=== PATIENT | female | born 1935 | race Caucasian/White ===

== ENCOUNTER 2019-03-22 03:37 | Inpatient (IN) ==
[2019-03-22 04:16] LABS: Appearance Urine Cloudy (Clear); Bacteria Urine Automated Negative (Negative); Bilirubin Urine Negative (Negative); Blood Urine Negative (Negative); Color Urine Yellow; Glucose Urine UA Negative (Negative); Ketones Urine Trace (Negative); Leukocyte Esterase Urine 3+ (Negative); Nitrite Urine Negative (Negative); Protein Urine Negative (Negative); RBC Urine Automated 0-4 /hpf (0-4); Specific Gravity Urine 1.023 (1.000-1.030); Urobilinogen Urine Negative (Negative); WBC Urine Automated >30 /hpf (0-5)
[2019-03-22 04:35] LABS: Basophils # (auto) 0.01 K/uL (0-0.2); Basophils % (auto) 0.2 %; Eosinophils # (auto) 0.14 K/uL (0-0.5); Eosinophils % (auto) 2.2 %; Hematocrit (blood only) 35.5 % (37-47); Hemoglobin 11.8 g/dL (12.0-16.0); Immature Granulocytes # (auto) 0.01 K/uL (0.00-0.02); Immature Granulocytes % (auto) 0.2 %; Mean Corpuscular Hemoglobin 30.3 pg (25-34); Mean Corpuscular Hgb Conc 33.2 g/dL (32-36); Monocytes # (auto) 0.56 K/uL (0.11-0.59); Neutrophils # (auto) 4.03 K/uL (1.4-6.5); Neutrophils % (auto) 64.4 %; Platelet Count 172 K/uL (130-400); RDW Coefficient of Variation 12.9 % (11.5-14.5); RDW Standard Deviation 42.8 fL (36.4-46.3); White Blood Count 6.25 K/uL (4.8-10.8)
[2019-03-22 04:53] LABS: Albumin Level 3.2 gm/dl (3.4-5.0); BUN Creatinine Ratio 28.5 (10-20); Calcium 9.3 mg/dl (8.5-10.1); Creatinine Clr Calc Pharmacy 33.1 ml/min; Est GFR (African American) 55.8; Est GFR (Non-African American) 48.2; Potassium 4.1 mmol/L (3.5-5.1)
[2019-03-22 04:59] LABS: Albumin Globulin Ratio 0.8 (0.9-2); Bilirubin,Total 0.5 mg/dl (0.2-1); Globulin 3.9 gm/dl (2.5-4.0); Total Protein 7.1 gm/dl (6.4-8.2)
[2019-03-22] MEDS ORDERED: SODIUM CHLORIDE 0.9% 500 ML IV ONE (05:09)
[2019-03-22] MEDS ORDERED: IOVERSOL 100ml IV PRN (05:12)
[2019-03-22] MEDS ORDERED: SODIUM CHLORIDE 0.9% 500 ML IV SCH (06:30)
--- NOTE | 2019-03-22 06:36 | XRay Report ---
XR abdomen 2V w PA chest HISTORY: 83 years-old Female upper abd. pain acute upper abdominal pain COMPARISON: CT abdomen and pelvis of same day TECHNIQUE: PA view the chest with erect and supine views of the abdomen FINDINGS: Cardiomediastinal and hilar silhouettes are within normal limits. There is no pneumothorax, pleural e ffusion, focal airspace consolidation or overt pulmonary edema. Minimal interstitial coarsening of th e lung bases. Degenerative changes of the shoulders and spine. Right shoulder rotator cuff calcific t endinosis. Convex right curvature of the upper lumbar spine. Degenerative changes of the pelvis and hips. There is no pneumatosis or pneumoperitoneum. There are a few mildly dilated loops of small bowel within the left midabdomen with air-fluid levels. No urolith. Cholecystectomy. Pelvic basin calcifications are suggestive of phleboliths. IMPRESSION: 1. No acute processes of the chest. 2. Mildly dilated loops of small bowel within the left midabdomen with air-fluid levels are suggestiv e of ileus versus enteritis with low-grade small bowel obstruction also within the differential. Foll ow-up recommended. 3. Cholecystectomy. The above report was generated using voice recognition software. It may contain grammatical, syntax o r spelling errors. Electronically signed by: Raoul Suazo M.D. 03/22/2019 6:34 AM
--- NOTE | 2019-03-22 07:32 | CT Scan Report ---
CT OF THE ABDOMEN AND PELVIS WITH CONTRAST CLINICAL HISTORY: Upper abdominal pain. COMPARISON STUDY: Abdominal series March 22, 2019. TECHNIQUE: Following IV administration of 93 mL of Optiray-320, axial images of the abdomen and pelvi s were obtained from the lung bases to the proximal femurs. Images were reviewed in the axial, sagitt al, and coronal planes. IV contrast was administered without complication. Automated exposure contro l was utilized for the study. A dose lowering technique was utilized adhering to the principles of A JOHN. CT DOSE: 290.21 mGy.cm FINDINGS: No pneumatosis, free air or portal venous gas is present. A lateral segment hepatic cyst is noted. Mild biliary ductal dilatation is likely related to previous cholecystectomy. The spleen, adr enal glands and pancreas are unremarkable. A few left renal cysts are noted. There is no hydronephros is. The proximal to mid small bowel is mildly dilated and fluid-filled. There is associated mesenteri c infiltration. Note is made of transition point with kinking of the bowel within the left lower quad rant on image 226 of 391. The distal small bowel is decompressed. Extensive colonic diverticulosis is noted without evidence for acute diverticulitis. A severe L1 compression fracture is noted. Vertebra l body height loss has increased since MRI of November 26, 2017. There is kyphosis at the thoracolumbar j unction. Mild loss of height of the superior plate of L3 is chronic. This is unchanged. IMPRESSION: Mildly dilated fluid-filled proximal to mid small bowel with discrete transition point w ithin the left mid abdomen, statistically on the basis of adhesions. Decompressed distal small bowel. Associated mesenteric infiltration. This represents a moderate grade small bowel obstruction. Discus sed with Dr. Sandra at time of dictation Electronically signed by: Panchito Steward M.D. 03/22/2019 7:30 AM
--- NOTE | 2019-03-22 07:59 | History and Physical Report ---
DATE OF ADMISSION: 03/22/2019 CHIEF COMPLAINT: Abdominal pain. HISTORY OF PRESENT ILLNESS: This 83-year-old female with past medical history significant for diabetes, hyperlipidemia, hypertension, osteoporosis, general osteoarthritis, macular degeneration, hard of hearing, and history of pulmonary embolism, presents with abdominal pain. The patient yesterday evening at 6:00 p.m. started noticing abdominal pain in the epigastric region, 7/10 in severity, not associated with any nausea or vomiting, no diarrhea or constipation. Last bowel movement was about Monday. She is passing only a small amount of flatus, so she came to the ER. Currently resting comfortably and hemodynamically stable. Never had an abdominal obstruction in the past. Denies any chest pain, no shortness of breath, no cough, no fever, no chills, no headache, no blurred vision, no sore throat, no difficulty swallowing. Appetite is okay. She ate her dinner last night. No rash. Has some lower extremity edema. She is on Lasix for the last 1 month for lower extremity edema. ALLERGIES: No known drug allergies. PAST MEDICAL HISTORY: As mentioned above. PAST SURGICAL HISTORY: Right shoulder arthroscopy, right knee arthroplasty, carpal tunnel surgery on the right side, colonoscopy, dilatation and curettage, removal of right ovary, bilateral cataract surgeries, cholecystectomy. MEDICATIONS: The patient is on Coumadin 5-7.5 mg as directed, simvastatin 10 mg p.o. daily, lisinopril 2.5 mg p.o. daily, metformin 500 mg in a.m. and 1000 mg in the evening, Lasix 20 mg p.o. daily, magnesium oxide 200 mg p.o. daily, calcium carbonate plus vitamin D 1 tablet b.i.d., vitamin B12 of 1000 mcg daily, amoxicillin prior to dental cleanings, multivitamins 1 tablet daily. FAMILY HISTORY: Significant for currently aunt has diabetes, sister has pancreatic cancer. Father had prostate cancer. SOCIAL HISTORY: Currently living alone. Son lives close by. No tobacco abuse. No alcohol abuse, no drug use. REVIEW OF SYMPTOMS: As per HPI. Rest of the review of systems is negative. PHYSICAL EXAMINATION: GENERAL: The patient is of moderate built, not in acute distress. VITAL SIGNS: Temperature 36.4, pulse 79, respiratory rate 16, blood pressure 128/77, oxygen 93% on room air. HEENT: No pallor, no icterus. Pupils equal, round, and reactive to light. NECK: No JVD, no neck masses, no carotid bruits. CARDIOVASCULAR: S1, S2 heard, regular rate and rhythm, no murmur, no gallop. RESPIRATORY SYSTEM: Normal AP diameter. No accessory muscle use. No wheezing, no crackles. ABDOMEN: Soft, mild epigastric tenderness, no guarding, no rigidity, no rebound tenderness. CENTRAL NERVOUS SYSTEM: Cranial nerves II-XII grossly intact. Nonfocal. EXTREMITIES: No edema, no erythema. LABORATORY DATA: WBC 6.25, hemoglobin 11.8, hematocrit 35.5, platelets 172. Sodium 139, potassium 4.1, chloride 104, bicarbonate 29, BUN 30, creatinine 1.06, serum glucose 147, calcium 9.3, total bilirubin 0.5, AST 15, ALT 14, alkaline phosphatase 67, lipase 132. Urinalysis positive for leukocyte esterase. Chest and abdominal x-ray: Mildly dilated loops of small bowel in the left-mid abdomen with air-fluid levels suggestive of ileus versus enteritis versus low-grade small-bowel obstruction. CAT scan of the abdomen and pelvis is pending. ASSESSMENT AND PLAN: This is an 83-year-old female who presents with abdominal pain. 1. Abdominal pain: Abdominal x-ray shows possible bowel obstruction. CAT scan unofficial report shows small-bowel obstruction. We will follow the official report. We will keep her n.p.o., IV fluids, IV pain medications p.r.n. iv Pepcid,Consult surgery for further recommendations. 2. History of diabetes: We will hold her home metformin, place her on insulin sliding scale. Follow the HbA1c levels. Follow the blood sugars while in the hospital. 3. History of hypertension: Continue lisinopril and Lasix. 4. History of lower extremity edema: Continue Lasix and follow with primary care physician. 5. History of hyperlipidemia: Continue statin. 6. History of pulmonary embolism: On Coumadin. Follow the INR. Once the INR is available, we will hold Coumadin and place on IV heparin until the bowel obstruction is resolved. 7. UTI? UA positive. Will follow cultures. Empiric iv Rocephin. 8. Deep venous thrombosis prophylaxis: Follow the INR. DISPOSITION: Admit to medical floor. Expect to discharge home and follow with family doctor. Level 1, full code. MTDD
[2019-03-22 08:29] LABS: INR 2.3 (0.9-1.1); Prothrombin Time 21.9 Seconds (9.0-12.0)
[2019-03-22] MEDS: SODIUM CHLORIDE 0.9% 1000ML 1,000 ML IV SCH ×3 (08:57→22:49)
[2019-03-22] MEDS ORDERED: FUROSEMIDE 20 MG TAB PO SCH (09:00)
[2019-03-22] MEDS: ACETAMINOPHEN 325 MG TAB PO PRN (09:03)
[2019-03-22] MEDS: ONDANSETRON INJ 2 MG/ML 2 ML VIAL IV PRN (09:52)
[2019-03-22] MEDS: cefTRIAXone SODIUM 1,000 MG in DEXTROSE 5% 50 ML IV SCH (10:02)
--- NOTE | 2019-03-22 10:05 | Surgery Consultation ---
Date of Consultation March 22, 2019 Assessment & Plan (1) SBO (small bowel obstruction): pt is a 83 year-old female who was admitted to hospital for SBO, IMP: SBO, agree with conservative treatment first, NPO, IV fluid, control pain, hold coumadin now, repeat INR, PT , labs, KUB in morning, no surgical indication now, will F/U , pt agrees with the plan, I answered all questions, possible surgery treatment if pt's symptoms are getting worse, History of Present Illness Attending Physician: Zeny Shaw MD CHIEF COMPLAINT: Abdominal pain. HISTORY OF PRESENT ILLNESS: This 83-year-old female with past medical history significant for diabetes, hyperlipidemia, hypertension, osteoporosis, general osteoarthritis, macular degeneration, hard of hearing, and history of pulmonary embolism, presents with abdominal pain. The patient yesterday evening at 6:00 p.m. started noticing abdominal pain in the epigastric region, 7/10 in severity, not associated with any nausea or vomiting, no diarrhea or constipation. Last bowel movement was about Monday. She is passing only a small amount of flatus, so she came to the ER. Currently resting comfortably and hemodynamically stable. Never had an abdominal obstruction in the past. Denies any chest pain, no shortness of breath, no cough, no fever, no chills, no headache, no blurred vision, no sore throat, no difficulty swallowing. Appetite is okay. She ate her dinner last night. No rash. Has some lower extremity edema. She is on Lasix for the last 1 month for lower extremity edema. I ( Yue Flores MD ) got a call for consult SBO, I reviewed pt's H/P labs, CT scan with pt, pt is still have some lower abdominal pain, with nausea, no vomiting, not pass flatus or BM yet, pt had ovary surgery many years ago, ALLERGIES: No known drug allergies. PAST MEDICAL HISTORY: As mentioned above. PAST SURGICAL HISTORY: Right shoulder arthroscopy, right knee arthroplasty, carpal tunnel surgery on the right side, colonoscopy, dilatation and curettage, removal of right ovary, bilateral cataract surgeries, cholecystectomy. MEDICATIONS: The patient is on Coumadin 5-7.5 mg as directed, simvastatin 10 mg p.o. daily, lisinopril 2.5 mg p.o. daily, metformin 500 mg in a.m. and 1000 mg in the evening, Lasix 20 mg p.o. daily, magnesium oxide 200 mg p.o. daily, calcium carbonate plus vitamin D 1 tablet b.i.d., vitamin B12 of 1000 mcg daily, amoxicillin prior to dental cleanings, multivitamins 1 tablet daily. FAMILY HISTORY: Significant for currently aunt has diabetes, sister has pancreatic cancer. Father had prostate cancer. SOCIAL HISTORY: Currently living alone. Son lives close by. No tobacco abuse. No alcohol abuse, no drug use. REVIEW OF SYMPTOMS: As per HPI. Rest of the review of systems is negative. Allergies Allergy/AdvReac Type Severity Reaction Status Date / Time No Known Allergies Allergy Unknown Verified 03/22/19 04:13 Home Medications Home Medications Medication Instructions Recorded Confirmed Type acetaminophen [Tylenol Arthritis 650 mg PO Q12H PRN 03/22/19 03/22/19 History Pain] bimatoprost [Lumigan] 1 drp OPHTHALMIC (EYE) PM 03/22/19 03/22/19 History calcium carbonate-vitamin D3 1 tab PO BID 03/22/19 03/22/19 History jbxhvucgj-sbcjdlhg-jmu-hyalur 1 tab PO DAILY 03/22/19 03/22/19 History [Joint Health] cyanocobalamin (vitamin B-12) 0 mcg PO DAILY 03/22/19 03/22/19 History [Vitamin B-12] furosemide [Lasix] 20 mg PO DAILY 03/22/19 03/22/19 History lisinopril 2.5 mg PO DAILY 03/22/19 03/22/19 History metformin 1,000 mg PO PM 03/22/19 03/22/19 History metformin 500 mg PO QAM 03/22/19 03/22/19 History simvastatin 10 mg PO PM 03/22/19 03/22/19 History timolol 1 drp OPHTHALMIC (EYE) QAM 03/22/19 03/22/19 History vit C,B-Ko-dtupq-lutein-zeaxan 1 tab PO BID 03/22/19 03/22/19 History [PreserVision AREDS-2] warfarin 5 mg PO DAILY 03/22/19 03/22/19 History Patient History Medical History HTN (hypertension) Diabetes High cholesterol Surgical History History of cholecystectomy Hx of appendectomy Hx of removal of ovary Social History Preferred Language: Indonesian Communication Ability: Effective 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: No Beliefs That Will Affect Care: None Current Living Situation: Alone Other Information That Helps Us Care for You: No Feels Safe at Home: Yes Smoking Status: Never smoker Do You Dip or Chew Tobacco: No ; Hx Alcohol Use: No Hx Substance Use: No Physical Exam Constitutional: WD/WN, vitals as above well developed and well nourished ENMT: external ear and nose normal, oropharynx normal Ears: + hearing impairment Neck: trachea midline, no thyromegaly Respiratory: normal respiratory effort, lungs clear to auscultation normal respiratory effort Cardiovascular: RRR, no murmur, no edema Rate/Rhythm: regular rate and regular rhythm Heart Sounds: normal S1 and normal S2 Gastrointestinal (Abdomen): Percussion/Palpation: abdomen soft mild tenderness at lower abdomen, no rebound pain, no distend, BS + Musculoskeletal: no cyanosis or clubbing, extremities motor strength 5/5 Skin: no rashes, warm and dry Neurologic: patellar DTR's 2+ bilat, sensation intact Psychiatric: Orientation: alert and oriented x 3 Lymphatic: no cervical or axillary lymphadenopathy Results & Data Vital Signs (Past 12 Hours) Vital Signs Temp Pulse Pulse Resp BP BP Pulse Ox 03/22/19 09:02 110/65 03/22/19 07:40 36.7 C 88 18 119/63 97 03/22/19 07:22 82 17 132/71 97 03/22/19 06:14 79 16 128/77 93 03/22/19 05:20 85 98 03/22/19 05:12 78 18 141/64 H 99 03/22/19 03:43 36.4 C L 148 H 22 148/84 H 97 Laboratory Results Abnormal lab results 03/22/19 03/22/19 03/22/19 Range/Units 03:59 04:08 04:08 RBC 3.90 L (4.2-5.4) M/uL Hgb 11.8 L (12.0-16.0) g/dL Hct 35.5 L (37-47) % PT (9.0-12.0) Seconds INR (0.9-1.1) BUN 30 H (7-18) mg/dl BUN/Creatinine Ratio 28.5 H (10-20) Glucose 147 H (70-99) mg/dl POC Glucose (70-99) Albumin 3.2 L (3.4-5.0) gm/dl Albumin/Globulin Ratio 0.8 L (0.9-2) Urine Appearance Cloudy A (Clear) Urine Ketones Trace H (Negative) Ur Leukocyte Esterase 3+ H (Negative) Urine WBC (Auto) >30 H (0-5) /hpf U Hyaline Cast (Auto) 5-10 H (0-5) /lpf U Epithel Cells (Auto) 10-20 H (0-5) /lpf 03/22/19 03/22/19 Range/Units 08:11 08:27 RBC (4.2-5.4) M/uL Hgb (12.0-16.0) g/dL Hct (37-47) % PT 21.9 H (9.0-12.0) Seconds INR 2.3 H (0.9-1.1) BUN (7-18) mg/dl BUN/Creatinine Ratio (10-20) Glucose (70-99) mg/dl POC Glucose 122 H (70-99) Albumin (3.4-5.0) gm/dl Albumin/Globulin Ratio (0.9-2) Urine Appearance (Clear) Urine Ketones (Negative) Ur Leukocyte Esterase (Negative) Urine WBC (Auto) (0-5) /hpf U Hyaline Cast (Auto) (0-5) /lpf U Epithel Cells (Auto) (0-5) /lpf Diagnostic Findings CT OF THE ABDOMEN AND PELVIS WITH CONTRAST CLINICAL HISTORY: Upper abdominal pain. COMPARISON STUDY: Abdominal series March 22, 2019. TECHNIQUE: Following IV administration of 93 mL of Optiray-320, axial images of the abdomen and pelvis were obtained from the lung bases to the proximal femurs. Images were reviewed in the axial, sagittal, and coronal planes. IV contrast was administered without complication. Automated exposure control was utilized for the study. A dose lowering technique was utilized adhering to the principles of ALARA. CT DOSE: 290.21 mGy.cm FINDINGS: No pneumatosis, free air or portal venous gas is present. A lateral segment hepatic cyst is noted. Mild biliary ductal dilatation is likely related to previous cholecystectomy. The spleen, adrenal glands and pancreas are unremarkable. A few left renal cysts are noted. There is no hydronephrosis. The proximal to mid small bowel is mildly dilated and fluid-filled. There is associated mesenteric infiltration. Note is made of transition point with kinking of the bowel within the left lower quadrant on image 226 of 391. The distal small bowel is decompressed. Extensive colonic diverticulosis is noted without evidence for acute diverticulitis. A severe L1 compression fracture is noted. Vertebral body height loss has increased since MRI of November 26, 2017. There is kyphosis at the thoracolumbar junction. Mild loss of height of the superior plate of L3 is chronic. This is unchanged. IMPRESSION: Mildly dilated fluid-filled proximal to mid small bowel with discrete transition point within the left mid abdomen, statistically on the basis of adhesions. Decompressed distal small bowel. Associated mesenteric infiltration. This represents a moderate grade small bowel obstruction. Discussed with Dr. Sandra at time of dictation
[2019-03-22] MEDS: KETOROLAC TROMETHAMINE 15 MG/ML VIAL IV PRN ×2 (10:32→20:16)
--- NOTE | 2019-03-22 13:04 | Hospitalist Progress Note ---
Date of Service March 22, 2019 Assessment & Plan (1) SBO (small bowel obstruction): Admitted with abdominal pain, distention and nausea CT of the abdomen and pelvis did show small bowel obstruction likely secondary to adhesions from past cholecystectomy We will keep her n.p.o., IV fluid and IV pain medications will avoid any narcotics, Appreciate surgery input and recommendation Clinically little better today Present on Admission?: Yes (2) HTN (hypertension): Blood pressure seems to be under control (3) Diabetes: We will hold any oral diabetic medications put her on sliding scale insulin coverage while in the hospital We will recheck hemoglobin A1c (4) High cholesterol: Continue statin (5) Lumbar compression fracture: No acute symptoms History of pulmonary embolism on Coumadin INR is therapeutic UA suggestive of infection Will await culture and sensitivity Subjective 03/22 The patient was seen and examined in the medical floor She complains to have some abdominal pain without any distention Complains of nausea but no vomiting Bowel has not moved Review of Systems Review of Systems: All systems reviewed and are unremarkable except as noted below Gastrointestinal: + abdominal pain, + bloating and + nausea; no vomiting Physical Exam Physical Exam: Lying in bed comfortably Constitutional: + ill appearing; no acute distress Eyes: PERRL, conjunctivae normal, anicteric sclerae ENMT: external ear and nose normal, oropharynx normal Neck: trachea midline, no thyromegaly Respiratory: normal respiratory effort; no respiratory distress Auscultation: lungs clear to auscultation bilaterally Cardiovascular: Rate/Rhythm: regular rate and regular rhythm Heart Sounds: no murmur Gastrointestinal (Abdomen): Inspection/Auscultation: + abdomen distended (Minimally distended) and normal bowel sounds Percussion/Palpation: + abdomen tender (Minimal generalized tenderness) and abdomen soft; no guarding Musculoskeletal: No acute arthritis in any joints Neurologic: moves all extremities; no focal motor deficits Lymphatic: no cervical or axillary lymphadenopathy Results & Data Vital Signs (Past 12 Hours) Vital Signs Temp Pulse Pulse Resp BP BP Pulse Ox 03/22/19 09:02 110/65 03/22/19 07:40 36.7 C 88 18 119/63 97 03/22/19 07:22 82 17 132/71 97 03/22/19 06:14 79 16 128/77 93 03/22/19 05:20 85 98 03/22/19 05:12 78 18 141/64 H 99 03/22/19 03:43 36.4 C L 148 H 22 148/84 H 97 Laboratory Results Short CBC 03/22/19 Range/Units 04:08 WBC 6.25 (4.8-10.8) K/uL Hgb 11.8 L (12.0-16.0) g/dL Hct 35.5 L (37-47) % Plt Count 172 (130-400) K/uL BMP 03/22/19 04:08 Sodium 139 Potassium 4.1 Chloride 104 Carbon Dioxide 29 BUN 30 H Creatinine 1.06 Glucose 147 H Calcium 9.3 Liver Function 03/22/19 Range/Units 04:08 Total Bilirubin 0.5 (0.2-1) mg/dl AST 15 (15-37) U/L ALT 14 (12-78) U/L Alkaline Phosphatase 67 (45-117) U/L Albumin 3.2 L (3.4-5.0) gm/dl Urine 03/22/19 Range/Units 03:59 Urine Color Yellow Urine Appearance Cloudy A (Clear) Urine pH 7.0 (4.5-7.5) Ur Specific [place] 1.023 (1.000-1.030) Urine Protein Negative (Negative) Urine Glucose (UA) Negative (Negative) Medications Administered Current Inpatient Medications Acetaminophen (Tylenol) 650 mg PO Q4H PRN PRN Reason: pain/fever Stop: 04/21/19 07:47 Last Admin: 03/22/19 09:03 Dose: 650 mg Documented by: Furosemide (Lasix) 20 mg PO DAILY MATTHEW Stop: 04/21/19 08:59 Last Admin: 03/22/19 08:58 Dose: Not Given Documented by: Sodium Chloride (Nss 1000ml) 1,000 mls @ 125 mls/hr IV .Q8H MATTHEW Stop: 04/21/19 07:47 Last Admin: 03/22/19 08:57 Dose: 125 mls/hr Documented by: Ceftriaxone Sodium 1,000 mg/ (Dextrose) 60 mls @ 100 mls/hr IV DAILY MATTHEW; Protocol Stop: 04/01/19 08:59 Last Infusion: 03/22/19 10:51 Dose: Infused Documented by: Ketorolac Tromethamine (Toradol) 15 mg IV Q6H PRN PRN Reason: Pain Stop: 03/27/19 10:11 Last Admin: 03/22/19 10:32 Dose: 15 mg Documented by: Lisinopril (Zestril) 2.5 mg PO DAILY [facility] Stop: 04/21/19 08:59 Last Admin: 03/22/19 09:02 Dose: 2.5 mg Documented by: Ondansetron HCl (Zofran) 4 mg IV Q6H PRN PRN Reason: Nausea Stop: 04/21/19 07:47 Last Admin: 03/22/19 09:52 Dose: 4 mg Documented by: Simvastatin (Zocor) 10 mg PO PM MATTHEW Stop: 04/21/19 20:59
[2019-03-22] MEDS ORDERED: Nursing to Pharmacy Communication ONE (13:26)
[2019-03-22] MEDS ORDERED: GLUCAGON FOR INJ 1 MG VIAL IM PRN (13:30)
[2019-03-22] MEDS ORDERED: DEXTROSE 50% 50 ML SYRINGE IV PRN (13:30)
[2019-03-22] MEDS ORDERED: CARBOHYDRATES FOR HYPOGLYCEMIA PO PRN (13:30)
[2019-03-22] MEDS ORDERED: GLUCOSE 40% GEL 15 GM TUBE PO PRN (13:30)
[2019-03-22] MEDS ORDERED: GLUCOSE 10 TABS/TUBE PO PRN (13:30)
--- NOTE | 2019-03-22 14:44 | Emergency Department Note ---
Entered by Nicolasa Montes De Oca acting as a scribe for History of Present Illness General Chief complaint: Abdominal Pain Stated complaint: SEVERE ABDOMINAL PAIN INTO BACK Time Seen by Provider: 03/22/19 03:51 Source: patient History of Present Illness Onset (ago): hour(s) Location: abdomen Radiation: back Pain Consistency: + colicky Exacerbated By: + eating Associated symptoms: + denies other symptoms (denies bowel and urinary problems) and + other (bloating); no fever/chills and no nausea/vomiting Treatments prior to arrival: none The patient is a 83 year old female who presents to the Emergency Room with complaints of abdominal pain that started this evening after dinner. She describes her pain to be located in her epigastric region, and that the consi stency is colicky. She complains of abdominal bloating as well. Her symptoms began after dinner tonight, and she states that the pain radiates to back. The patient denies nausea, vomiting, fever, and bowel or urinary problems. She denied having a bowel movement today. The patient noted she has had her gallbladder, appendix, and one ovary removed. She has a history of diabetes, and takes blood pressure medicine. She reports that she usually has loose stool. She denies any recent weight changes. Home Medications Home Medications Medication Instructions Recorded Confirmed Type acetaminophen [Tylenol Arthritis 650 mg PO Q12H PRN 03/22/19 03/22/19 History Pain] bimatoprost [Lumigan] 1 drp OPHTHALMIC (EYE) PM 03/22/19 03/22/19 History calcium carbonate-vitamin D3 1 tab PO BID 03/22/19 03/22/19 History hxzmprjqg-lkjbljda-oci-hyalur 1 tab PO DAILY 03/22/19 03/22/19 History [Joint Health] cyanocobalamin (vitamin B-12) 0 mcg PO DAILY 03/22/19 03/22/19 History [Vitamin B-12] furosemide [Lasix] 20 mg PO DAILY 03/22/19 03/22/19 History lisinopril 2.5 mg PO DAILY 03/22/19 03/22/19 History metformin 1,000 mg PO PM 03/22/19 03/22/19 History metformin 500 mg PO QAM 03/22/19 03/22/19 History simvastatin 10 mg PO PM 03/22/19 03/22/19 History timolol 1 drp OPHTHALMIC (EYE) QAM 03/22/19 03/22/19 History vit C,A-Wy-lokcy-lutein-zeaxan 1 tab PO BID 03/22/19 03/22/19 History [PreserVision AREDS-2] warfarin 5 mg PO DAILY 03/22/19 03/22/19 History Allergies Allergy/AdvReac Type Severity Reaction Status Date / Time No Known Allergies Allergy Unknown Verified 03/22/19 04:13 Past Med/Surg History Medical History HTN (hypertension) Diabetes High cholesterol Surgical History History of cholecystectomy Hx of appendectomy Hx of removal of ovary Social History Preferred Language: Syriac Communication Ability: Effective Model Maker Scale Required: No Beliefs That Will Affect Care: None marital status: / Current Living Situation: Alone Other Information That Helps Us Care for You: No Feels Safe at Home: Yes Smoking Status: Never smoker Do You Dip or Chew Tobacco: No ; Hx Alcohol Use: No Hx Substance Use: No Review of Systems See HPI for pertinent positives & negatives. and A total of 10 systems reviewed and were otherwise negative Physical Exam Vital Signs Vital Signs - 24 hr 03/22/19 03:43 03/22/19 05:12 03/22/19 05:20 Temperature 36.4 C L Temperature Source Oral Sepsis Recent Fever Within 48 Hours No Sepsis New/Unexplained Change in Mental Status No Sepsis Action Taken by Nursing No Action Required Pulse Rate 148 H 85 Pulse Rate [Right Finger] 78 Pulse Rhythm Regular Pulse Rhythm [Right Finger] Regular Respiratory Rate 22 18 Respiratory Effort / Characteristics Non-Labored Non-Labored Respiratory Depth Normal Normal Respiratory Pattern Blood Pressure 148/84 H Blood Pressure [Right Arm] 141/64 H Blood Pressure Mean 105 Blood Pressure Mean [Right Arm] 89 Pulse Oximetry 97 99 98 Oxygen Delivery Method Room Air Room Air Room Air 03/22/19 06:14 Temperature Temperature Source Sepsis Recent Fever Within 48 Hours Sepsis New/Unexplained Change in Mental Status Sepsis Action Taken by Nursing Pulse Rate Pulse Rate [Right Finger] 79 Pulse Rhythm Pulse Rhythm [Right Finger] Respiratory Rate 16 Respiratory Effort / Characteristics Non-Labored Spontaneous Respiratory Depth Normal Respiratory Pattern Regular Blood Pressure Blood Pressure [Right Arm] 128/77 Blood Pressure Mean Blood Pressure Mean [Right Arm] 94 Pulse Oximetry 93 Oxygen Delivery Method Room Air HEENT: Head - normocephalic and atraumatic Pupils are equal, round, and reactive to light. Extraocular eye muscles are intact, and sclera are anicteric. Nose - moist nasal mucosa without discharge. Mouth - moist buccal mucosa. Oropharynx is nonerythematous and there is no tonsillar exudate or edema noted. Neck: Supple; no JVD, nuchal rigidity, cervical lymphadenopathy, or auscultated bruits. Heart: Regular rate and rhythm. There is a normal S1 and S2 with no murmurs, clicks, or gallops appreciated. Lungs: Clear to auscultation bilaterally with no wheezes, rales, or rhonchi. Abdomen: Soft, mildly tender to palpation in the left and right upper quadrants. The abdomen is slightly distended, with good bowel sounds. There are no palpable pulsatile masses or hepatosplenomegaly. There is no guarding, rigidity, or rebound noted. Extremities: No evidence of cyanosis, clubbing, or edema. There are easily palpable peripheral pulses. Skin: warm and dry with good turgor and no rashes. Course 0357: Past medical records reviewed. The patient was evaluated in room A02. A complete history and physical exam was performed. An IV lock was initiated and labs were drawn as above. She went for an obstruction series which did have some dilated loops of bowel with tiny air-fluid levels. 0451: I checked on the patient to inform her on x-ray results. She rates her pain as an 8, but does not want anything for pain. She believes the pain in her back is from her compression fractures, which she knows about. The patient will go for CT. 0509: The patient will be administered IV fluids for her dehydration. 0625: I updated the patient on her CT results. I spoke to Dr. Sandra, [facility] hospitalist, regarding the patient. He agreed to take over care of the patient. Administered Medications Acetaminophen (Tylenol) 650 mg PO Q4H PRN PRN Reason: pain/fever Stop: 04/21/19 07:47 Last Admin: 03/22/19 09:03 Dose: 650 mg Documented by: [id number] Furosemide (Lasix) 20 mg PO DAILY [facility] Stop: 04/21/19 08:59 Last Admin: 03/22/19 08:58 Dose: Not Given Documented by: [id number] Sodium Chloride (Nss 1000ml) 1,000 mls @ 125 mls/hr IV .Q8H MATTHEW Stop: 03/23/19 07:47 Last Admin: 03/22/19 14:29 Dose: 125 mls/hr Documented by: [id number] Infusion: 03/22/19 14:29 Dose: 125 mls/hr Documented by: [id number] Admin: 03/22/19 08:57 Dose: 125 mls/hr Documented by: [id number] Ceftriaxone Sodium 1,000 mg/ (Dextrose) 60 mls @ 100 mls/hr IV DAILY MATTHEW; Protocol Stop: 04/01/19 08:59 Last Infusion: 03/22/19 10:51 Dose: 0 mls/hr Documented by: [id number] Admin: 03/22/19 10:02 Dose: 100 mls/hr Documented by: [id number] Ketorolac Tromethamine (Toradol) 15 mg IV Q6H PRN PRN Reason: Pain Stop: 03/27/19 10:11 Last Admin: 03/22/19 10:32 Dose: 15 mg Documented by: [id number] Lisinopril (Zestril) 2.5 mg PO DAILY MATTHEW Stop: 04/21/19 08:59 Last Admin: 03/22/19 09:02 Dose: 2.5 mg Documented by: [id number] Ondansetron HCl (Zofran) 4 mg IV Q6H PRN PRN Reason: Nausea Stop: 04/21/19 07:47 Last Admin: 03/22/19 09:52 Dose: 4 mg Documented by: [id number] Discontinued Medications Sodium Chloride (Nss) 500 mls @ 999 mls/hr IV .Q31M ONE Stop: 03/22/19 05:39 Last Infusion: 03/22/19 06:16 Dose: 0 mls/hr Documented by: [id number] Admin: 03/22/19 05:21 Dose: 999 mls/hr Documented by: [id number] Sodium Chloride (Nss) 500 mls @ 125 mls/hr IV .Q4H MATTHEW Stop: 04/21/19 06:29 Last Infusion: 03/22/19 09:14 Dose: 0 mls/hr Documented by: [id number] Admin: 03/22/19 06:34 Dose: 125 mls/hr Documented by: [id number] Ioversol (Optiray 320 100ml) 100 ml IV ONCE PRN PRN Reason: Interaction Checking Stop: 03/26/19 05:11 Last Admin: 03/22/19 05:12 Dose: 93 ml Documented by: [id number] Medical Decision Making Differential Diagnosis Differential diagnosis includes, but is not limited to: constipation, small bowel obstruction, pancreatitis, pneumonia, and cystitis. Medical Records Attestation: I reviewed the patient's medical records. Home Medications Current Medication List: was personally reviewed by me Laboratory Data Attestation: I reviewed the patient's lab results. Result diagrams: 03/22/19 04:08 03/22/19 04:08 Lab Results 03/22/19 03/22/19 03/22/19 Range/Units 03:59 04:08 04:08 WBC 6.25 (4.8-10.8) K/uL RBC 3.90 L (4.2-5.4) M/uL Hgb 11.8 L (12.0-16.0) g/dL Hct 35.5 L (37-47) % MCV 91.0 (80-100) fL MCH 30.3 (25-34) pg MCHC 33.2 (32-36) g/dL RDW Std Deviation 42.8 (36.4-46.3) fL RDW Coeff of Edmar 12.9 (11.5-14.5) % Plt Count 172 (130-400) K/uL MPV 9.0 (7.4-10.4) fL Immature Gran % (Auto) 0.2 % Neut % (Auto) 64.4 % Lymph % (Auto) 24.0 % [place] % (Auto) 9.0 % Eos % (Auto) 2.2 % Baso % (Auto) 0.2 % Immature Gran # (Auto) 0.01 (0.00-0.02) K/uL Neut # (Auto) 4.03 (1.4-6.5) K/uL Lymph # (Auto) 1.50 (1.2-3.4) K/uL [place] # (Auto) 0.56 (0.11-0.59) K/uL Eos # (Auto) 0.14 (0-0.5) K/uL Baso # (Auto) 0.01 (0-0.2) K/uL Sodium 139 (136-145) mmol/L Potassium 4.1 (3.5-5.1) mmol/L Chloride 104 (98-107) mmol/L Carbon Dioxide 29 (21-32) mmol/L Anion Gap 6.0 (3-11) BUN 30 H (7-18) mg/dl Creatinine 1.06 (0.6-1.2) mg/dl Est Cr Clr Drug Dosing 33.1 ml/min Est GFR ( Amer) 55.8 Est GFR (Non-Af Amer) 48.2 BUN/Creatinine Ratio 28.5 H (10-20) Glucose 147 H (70-99) mg/dl Calcium 9.3 (8.5-10.1) mg/dl Total Bilirubin 0.5 (0.2-1) mg/dl AST 15 (15-37) U/L ALT 14 (12-78) U/L Alkaline Phosphatase 67 (45-117) U/L Total Protein 7.1 (6.4-8.2) gm/dl Albumin 3.2 L (3.4-5.0) gm/dl Globulin 3.9 (2.5-4.0) gm/dl Albumin/Globulin Ratio 0.8 L (0.9-2) Lipase 132 (73-393) U/L Urine Color Yellow Urine Appearance Cloudy A (Clear) Urine pH 7.0 (4.5-7.5) Ur Specific Vincent 1.023 (1.000-1.030) Urine Protein Negative (Negative) Urine Glucose (UA) Negative (Negative) Urine Ketones Trace H (Negative) Urine Blood Negative (Negative) Urine Nitrite Negative (Negative) Urine Bilirubin Negative (Negative) Urine Urobilinogen Negative (Negative) Ur Leukocyte Esterase 3+ H (Negative) Urine WBC (Auto) >30 H (0-5) /hpf Urine RBC (Auto) 0-4 (0-4) /hpf U Hyaline Cast (Auto) 5-10 H (0-5) /lpf U Epithel Cells (Auto) 10-20 H (0-5) /lpf Urine Bacteria (Auto) Negative (Negative) Imaging Data Attestation: I personally reviewed and interpreted this imaging study as follows: My Impression: X-ray abdomen 2V w PA chest: Obstruction series - read by me Severe spinal curvature with arthritic changes. Questionable air fluid levels. Radiologist's Impression: Radiology results as stated below per my review and the radiologist's interpretation: CT ABDOMEN & PELVIS With Contrast: COMPARISON: Radiographs performed earlier. Lumbar spine MRI dated 11/26/17 and pelvis MRI dated 11/28/17. Mildly prominent fluid filled small bowel loops seen with a gradual transition point within the left midabdomen. Question mild enteritis with ileus vs low- grade partial small bowel obstruction. Cholecystectomy. Minimal intrahepatic biliary ductal dilatation which may be due to postcholecystectomy. Left hepatic 16 mm cyst. Left renal 13.4 mm cyst Right kidney, pancreas and spleen are unremarkable. Diverticulosis is seen without diverticulitis. No free fluid or free air. Chronic compression deformity of L1 with possible progressive height loss compared to the prior study from 2018. Radiologist: Jose Luis Peña M.D. Study ready at 0518 and initial results transmitted at 06:00 Blood Pressure Blood Pressure Findings: Elevated blood pressure Blood Pressure Disposition: further management by hospitalist MDM Narrative The patient is a 83 year old female who presents to the Emergency Room with complaints of abdominal pain that started this evening after dinner. The patient complains of pain in the upper quadrants of her abdomen. It does seem to come and go. Obstruction series was slightly concerning for small bowel obstruction as there were tiny air-fluid levels. The patient went for CT scan of the abdomen/pelvis which did confirm a possible partial small bowel obstruction. The patient was placed on IV fluids. She denied any nausea and had no episodes of vomiting. She declined wanting anything for pain. I discussed the case with the [facility]ist and they will evaluate for further management. Impression & Plan SBO (small bowel obstruction), Bilateral upper abdominal pain Discharge Plan Visit Data *Final* Discharge Date/Time: 03/22/19 07:22 Chief Complaint: Abdominal Pain Stated Complaint: SEVERE ABDOMINAL PAIN INTO BACK ED Provider: Ariella Alexis Discharge Problem: SBO (small bowel obstruction), Bilateral upper abdominal pain Patient Disposition: Admitted As Inpatient Discharge Instructions Interventions: ED Discharge Assessment Last Done: 03/22/19 07:22 The scribe's documentation has been prepared under my direction and personally reviewed by me in its entirety. I confirm that the note above accurately reflects all work, treatment, procedures, and medical decision making performed by me.
[2019-03-22] MEDS ORDERED: INSULIN ASPART 100 UNITS/ML 3 ML PEN SC SCH (16:30)
[2019-03-22] MEDS: INSULIN ASPART 100 UNITS/ML 3 ML PEN SC SCH (19:44)
[2019-03-22] MEDS: SIMVASTATIN 10 MG TAB PO SCH (20:16)
[2019-03-23] MEDS: INSULIN ASPART 100 UNITS/ML 3 ML PEN SC SCH ×5 (01:14→21:47)
[2019-03-23 05:36] LABS: Basophils # (auto) 0.02 K/uL (0-0.2); Basophils % (auto) 0.3 %; Eosinophils # (auto) 0.17 K/uL (0-0.5); Eosinophils % (auto) 2.4 %; Hematocrit (blood only) 32.7 % (37-47); Hemoglobin 10.4 g/dL (12.0-16.0); Immature Granulocytes # (auto) 0.01 K/uL (0.00-0.02); Immature Granulocytes % (auto) 0.1 %; Lymphocytes # (auto) 1.36 K/uL (1.2-3.4); Lymphocytes % (auto) 19.1 %; Mean Corpuscular Hemoglobin 29.9 pg (25-34); Mean Corpuscular Hgb Conc 31.8 g/dL (32-36); Mean Platelet Volume 9.1 fL (7.4-10.4); Monocytes # (auto) 0.47 K/uL (0.11-0.59); Monocytes % (auto) 6.6 %; Neutrophils # (auto) 5.08 K/uL (1.4-6.5); Neutrophils % (auto) 71.5 %; Platelet Count 157 K/uL (130-400); RDW Coefficient of Variation 13.2 % (11.5-14.5); RDW Standard Deviation 45.3 fL (36.4-46.3); Red Blood Count 3.48 M/uL (4.2-5.4); White Blood Count 7.11 K/uL (4.8-10.8)
[2019-03-23 05:55] LABS: Est GFR (African American) 58.1; Est GFR (Non-African American) 50.1; Potassium 4.3 mmol/L (3.5-5.1)
[2019-03-23 05:56] LABS: BUN Creatinine Ratio 20.6 (10-20); Calcium 8.3 mg/dl (8.5-10.1); Creatinine Clr Calc Pharmacy 31.9 ml/min; Magnesium 1.4 mg/dl (1.8-2.4)
[2019-03-23 05:57] LABS: INR 2.1 (0.9-1.1); Prothrombin Time 20.4 Seconds (9.0-12.0)
[2019-03-23 07:41] LABS: Estimated Average Glucose 146 mg/dl; Hemoglobin A1C 6.7 % (4.5-5.6)
[2019-03-23] MEDS: cefTRIAXone SODIUM 1,000 MG in DEXTROSE 5% 50 ML IV SCH (09:55)
--- NOTE | 2019-03-23 10:02 | Surgery Progress Note ---
Date of Service pt feels better, passed some gas, no BM yet, less abdominal pain, no nausea, no vomiting, March 23, 2019 Assessment & Plan (1) SBO (small bowel obstruction): pt is a 83 year-old female who was admitted to hospital for SBO, IMP: SBO, agree with conservative treatment first, NPO, IV fluid, control pain, hold coumadin now, repeat INR, PT , labs, KUB in morning, no surgical indication now, will F/U , pt agrees with the plan, I answered all questions, possible surgery treatment if pt's symptoms are getting worse, 06/23/2018 10:01am doing better. continue treatment, will F/U Physical Exam Constitutional: WD/WN, vitals as above well developed and well nourished ENMT: external ear and nose normal, oropharynx normal Ears: + hearing impairment Neck: trachea midline, no thyromegaly Respiratory: normal respiratory effort, lungs clear to auscultation normal respiratory effort Cardiovascular: RRR, no murmur, no edema Rate/Rhythm: regular rate and regular rhythm Heart Sounds: normal S1 and normal S2 Gastrointestinal (Abdomen): Percussion/Palpation: abdomen soft Musculoskeletal: no cyanosis or clubbing, extremities motor strength 5/5 Skin: no rashes, warm and dry Neurologic: patellar DTR's 2+ bilat, sensation intact Psychiatric: Orientation: alert and oriented x 3 Lymphatic: no cervical or axillary lymphadenopathy Results & Data Vital Signs (Past 12 Hours) Vital Signs Temp Pulse Pulse Resp BP BP Pulse Ox 03/23/19 09:53 103/68 03/23/19 08:00 36.7 C 79 18 106/68 93 03/22/19 23:44 36.4 C L 77 17 106/64 95
[2019-03-23] MEDS: MAGNESIUM SULFATE / D5W 1 GM/100 ML BAG IV SCH ×2 (10:31→11:58)
--- NOTE | 2019-03-23 14:13 | Hospitalist Progress Note ---
Date of Service March 23, 2019 Assessment & Plan (1) SBO (small bowel obstruction): Admitted with abdominal pain, distention and nausea CT of the abdomen and pelvis did show small bowel obstruction likely secondary to adhesions from past cholecystectomy We will keep her n.p.o., IV fluid and IV pain medications will avoid any narcotics, Appreciate surgery input and recommendation Clinically a lot better today Abdominal pain is gone and distention is improved We will continue n.p.o., IV fluid and supportive care for now (2) HTN (hypertension): Blood pressure seems to be under control (3) Diabetes: We will hold any oral diabetic medications put her on sliding scale insulin coverage while in the hospital We will recheck hemoglobin A1c-6.7 on 03/23 (4) High cholesterol: Continue statin (5) Lumbar compression fracture: No acute symptoms History of pulmonary embolism on Coumadin INR is therapeutic UA suggestive of infection Will await culture and sensitivity Urine cultures grew 3 different organisms likely contaminant Will discontinue antibiotic Subjective 03/22 The patient was seen and examined in the medical floor She complains to have some abdominal pain without any distention Complains of nausea but no vomiting Bowel has not moved 03/23 The patient was seen and examined in medical floor She has been complaining of minimal abdominal symptoms today Minimal distention but no pain, nausea and/or vomiting Bowel has not passed yet Review of Systems Review of Systems: All systems reviewed and are unremarkable except as noted. Gastrointestinal: + bloating; no abdominal pain, no nausea, no vomiting and no cramping Physical Exam Physical Exam: Sitting on a chair without any symptoms Constitutional: no acute distress and not ill appearing Eyes: PERRL, conjunctivae normal, anicteric sclerae ENMT: external ear and nose normal, oropharynx normal Neck: trachea midline, no thyromegaly Respiratory: normal respiratory effort; no respiratory distress Auscultation: lungs clear to auscultation bilaterally Cardiovascular: Rate/Rhythm: regular rate and regular rhythm Heart Sounds: no murmur Gastrointestinal (Abdomen): Inspection/Auscultation: normal bowel sounds; abdomen not distended Percussion/Palpation: + abdomen tender (Minimal generalized tenderness) and abdomen soft; no guarding Neurologic: moves all extremities; no focal motor deficits Lymphatic: no cervical or axillary lymphadenopathy Results & Data Vital Signs (Past 12 Hours) Vital Signs Temp Pulse Resp BP BP Pulse Ox 03/23/19 09:53 103/68 03/23/19 08:00 36.7 C 79 18 106/68 93 Laboratory Results Short CBC 03/23/19 Range/Units 05:20 WBC 7.11 (4.8-10.8) K/uL Hgb 10.4 L (12.0-16.0) g/dL Hct 32.7 L (37-47) % Plt Count 157 (130-400) K/uL BMP 03/23/19 05:20 Sodium 141 Potassium 4.3 Chloride 110 H Carbon Dioxide 28 BUN 21 H Creatinine 1.02 Glucose 91 Calcium 8.3 L Medications Administered Current Inpatient Medications Acetaminophen (Tylenol) 650 mg PO Q4H PRN PRN Reason: pain/fever Stop: 04/21/19 07:47 Last Admin: 03/22/19 09:03 Dose: 650 mg Documented by: Dextrose (Dextrose 50%) 25 - 50 ml IV UD PRN; Protocol PRN Reason: Hypoglycemia Protocol Stop: 04/21/19 13:29 Furosemide (Lasix) 20 mg PO DAILY MATTHEW Stop: 04/21/19 08:59 Last Admin: 03/22/19 08:58 Dose: Not Given Documented by: Glucagon (Glucagen) 1 mg IM UD PRN; Protocol PRN Reason: Hypoglycemia Protocol Stop: 04/21/19 13:29 Glucose (Glucose 40%) 15 - 30 gm PO UD PRN; Protocol PRN Reason: Hypoglycemia Protocol Stop: 04/21/19 13:29 Glucose (Dex4 Glucose) 4 - 8 tabs PO UD PRN; Protocol PRN Reason: Hypoglycemia Protocol Stop: 04/21/19 13:29 Ceftriaxone Sodium 1,000 mg/ (Dextrose) 60 mls @ 100 mls/hr IV DAILY MATTHEW; Protocol Stop: 04/01/19 08:59 Last Infusion: 03/23/19 10:31 Dose: Infused Documented by: Insulin Aspart (Novolog Flexpen) 0 units SC Q6 MATTHEW Stop: 04/21/19 17:59 Last Admin: 03/23/19 13:35 Dose: Not Given Documented by: Ketorolac Tromethamine (Toradol) 15 mg IV Q6H PRN PRN Reason: Pain Stop: 03/27/19 10:11 Last Admin: 03/22/19 20:16 Dose: 15 mg Documented by: Lisinopril (Zestril) 2.5 mg PO DAILY MATTHEW Stop: 04/21/19 08:59 Last Admin: 03/23/19 09:54 Dose: 2.5 mg Documented by: Miscellaneous (Carbohydrates For Hypoglycemia) 15 - 30 gm PO UD PRN PRN Reason: Hypoglycemia Treatment Stop: 04/21/19 13:29 Ondansetron HCl (Zofran) 4 mg IV Q6H PRN PRN Reason: Nausea Stop: 04/21/19 07:47 Last Admin: 03/22/19 09:52 Dose: 4 mg Documented by: Simvastatin (Zocor) 10 mg PO PM MATTHEW Stop: 04/21/19 20:59 Last Admin: 03/22/19 20:16 Dose: 10 mg Documented by:
[2019-03-23] MEDS ORDERED: Nursing to Pharmacy Communication ONE (20:08)
[2019-03-23] MEDS: SIMVASTATIN 10 MG TAB PO SCH (20:33)
[2019-03-23] MEDS: ONDANSETRON INJ 2 MG/ML 2 ML VIAL IV PRN (23:43)
--- NOTE | 2019-03-24 09:29 | Surgery Progress Note ---
Date of Service still passed some gas, no nausea, no vomiting, no abdominal pain, March 24, 2019 Assessment & Plan (1) SBO (small bowel obstruction): pt is a 83 year-old female who was admitted to hospital for SBO, IMP: SBO, agree with conservative treatment first, NPO, IV fluid, control pain, hold coumadin now, repeat INR, PT , labs, KUB in morning, no surgical indication now, will F/U , pt agrees with the plan, I answered all questions, possible surgery treatment if pt's symptoms are getting worse, 03/23/2019 10:01am doing better. continue treatment, will F/U 03/24/2019 9:29am stable, KUB today, miralax will F/U Physical Exam Constitutional: WD/WN, vitals as above well developed and well nourished ENMT: external ear and nose normal, oropharynx normal Ears: + hearing impairment Neck: trachea midline, no thyromegaly Respiratory: normal respiratory effort, lungs clear to auscultation normal respiratory effort Cardiovascular: RRR, no murmur, no edema Rate/Rhythm: regular rate and regular rhythm Heart Sounds: normal S1 and normal S2 Gastrointestinal (Abdomen): Percussion/Palpation: abdomen soft Musculoskeletal: no cyanosis or clubbing, extremities motor strength 5/5 Skin: no rashes, warm and dry Neurologic: patellar DTR's 2+ bilat, sensation intact Psychiatric: Orientation: alert and oriented x 3 Lymphatic: no cervical or axillary lymphadenopathy Results & Data Vital Signs (Past 12 Hours) Vital Signs Temp Pulse Pulse Resp BP BP Pulse Ox 03/24/19 08:00 36.9 C 88 18 111/65 93 03/23/19 23:14 36.9 C 86 18 108/65 96
[2019-03-24] MEDS: INSULIN ASPART 100 UNITS/ML 3 ML PEN SC SCH ×4 (09:44→21:15)
[2019-03-24] MEDS: POLYETHYLENE (MIRALAX) 17 GM PACK PO SCH (09:48)
--- NOTE | 2019-03-24 10:17 | XRay Report ---
KUB HISTORY: Small bowel obstruction. Follow-up. COMPARISON: Abdomen and pelvis CT and chest and abdominal series 03/22/2019. FINDINGS: No significant change in the mildly dilated gas-filled loops of small bowel within the left and midabdomen. The stomach is gas-filled. Prior cholecystectomy. Dextroscoliosis. Multiple pelvic p hleboliths. No renal calculi. No ureteral calculi. No pneumoperitoneum or pneumatosis. IMPRESSION: No significant change in the small bowel obstruction pattern. Electronically signed by: Tuan Roque M.D. 03/24/2019 10:15 AM
--- NOTE | 2019-03-24 13:21 | Hospitalist Progress Note ---
Date of Service March 24, 2019 Assessment & Plan (1) SBO (small bowel obstruction): Admitted with abdominal pain, distention and nausea CT of the abdomen and pelvis did show small bowel obstruction likely secondary to adhesions from past cholecystectomy We will keep her n.p.o., IV fluid and IV pain medications will avoid any narcotics, Appreciate surgery input and recommendation Clinically a lot better today Abdominal pain is gone and distention is improved We will continue n.p.o., IV fluid and supportive care for now KUB shows persistence of SBO without any worsening findings Will continue clears orally for now Advised to ambulate more (2) HTN (hypertension): Blood pressure seems to be under control (3) Diabetes: We will hold any oral diabetic medications put her on sliding scale insulin coverage while in the hospital We will recheck hemoglobin A1c-6.7 on 03/23 (4) High cholesterol: Continue statin (5) Lumbar compression fracture: No acute symptoms History of pulmonary embolism on Coumadin INR is therapeutic UA suggestive of infection Will await culture and sensitivity Urine cultures grew 3 different organisms likely contaminant Will discontinue antibiotic Subjective 03/22 The patient was seen and examined in the medical floor She complains to have some abdominal pain without any distention Complains of nausea but no vomiting Bowel has not moved 03/23 The patient was seen and examined in medical floor She has been complaining of minimal abdominal symptoms today Minimal distention but no pain, nausea and/or vomiting Bowel has not passed yet 03/24 The patient was seen and examined in medical floor She does not have any significant symptoms except some discomfort in the epigastrium Denies any more nausea and/or vomiting Has been tolerating clears Review of Systems Review of Systems: All systems reviewed and are unremarkable except as noted. Gastrointestinal: + bloating; no abdominal pain, no nausea, no vomiting and no cramping Physical Exam Physical Exam: Sitting on a chair without any acute symptoms Constitutional: no acute distress and not ill appearing Eyes: PERRL, conjunctivae normal, anicteric sclerae ENMT: external ear and nose normal, oropharynx normal Neck: trachea midline, no thyromegaly Respiratory: normal respiratory effort; no respiratory distress Auscultation: lungs clear to auscultation bilaterally Cardiovascular: Rate/Rhythm: regular rate and regular rhythm Heart Sounds: no murmur Gastrointestinal (Abdomen): Inspection/Auscultation: + abdomen distended (Minimally distended in the epigastrium) and normal bowel sounds Percussion/ Palpation: + abdomen tender (Minimal generalized tenderness) and abdomen soft; no guarding Neurologic: moves all extremities; no focal motor deficits Lymphatic: no cervical or axillary lymphadenopathy Results & Data Vital Signs (Past 12 Hours) Vital Signs Temp Pulse Resp BP Pulse Ox 03/24/19 09:41 105/64 03/24/19 08:00 36.9 C 88 18 111/65 93 Medications Administered Current Inpatient Medications Acetaminophen (Tylenol) 650 mg PO Q4H PRN PRN Reason: pain/fever Stop: 04/21/19 07:47 Last Admin: 03/22/19 09:03 Dose: 650 mg Documented by: Bimatoprost (Lumigan 0.01%) 1 drops OP PM MATTHEW Stop: 04/23/19 20:59 Dextrose (Dextrose 50%) 25 - 50 ml IV UD PRN; Protocol PRN Reason: Hypoglycemia Protocol Stop: 04/21/19 13:29 Furosemide (Lasix) 20 mg PO DAILY MATTHEW Stop: 04/21/19 08:59 Last Admin: 03/22/19 08:58 Dose: Not Given Documented by: Glucagon (Glucagen) 1 mg IM UD PRN; Protocol PRN Reason: Hypoglycemia Protocol Stop: 04/21/19 13:29 Glucose (Glucose 40%) 15 - 30 gm PO UD PRN; Protocol PRN Reason: Hypoglycemia Protocol Stop: 04/21/19 13:29 Glucose (Dex4 Glucose) 4 - 8 tabs PO UD PRN; Protocol PRN Reason: Hypoglycemia Protocol Stop: 04/21/19 13:29 Insulin Aspart (Novolog Flexpen) 0 units SC ACHS MATTHEW Stop: 04/22/19 20:59 Last Admin: 03/24/19 12:39 Dose: Not Given Documented by: Ketorolac Tromethamine (Toradol) 15 mg IV Q6H PRN PRN Reason: Pain Stop: 03/27/19 10:11 Last Admin: 03/22/19 20:16 Dose: 15 mg Documented by: Lisinopril (Zestril) 2.5 mg PO DAILY MATTHEW Stop: 04/21/19 08:59 Last Admin: 03/24/19 09:42 Dose: 2.5 mg Documented by: Miscellaneous (Carbohydrates For Hypoglycemia) 15 - 30 gm PO UD PRN PRN Reason: Hypoglycemia Treatment Stop: 04/21/19 13:29 Ondansetron HCl (Zofran) 4 mg IV Q6H PRN PRN Reason: Nausea Stop: 04/21/19 07:47 Last Admin: 03/23/19 23:43 Dose: 4 mg Documented by: Polyethylene Glycol (Miralax Powder Packet) 17 gm PO DAILY MATTHEW Stop: 04/23/19 09:29 Last Admin: 03/24/19 09:48 Dose: 17 gm Documented by: Simvastatin (Zocor) 10 mg PO PM MATTHEW Stop: 04/21/19 20:59 Last Admin: 03/23/19 20:33 Dose: 10 mg Documented by: Timolol Maleate (Timoptic 0.25% Oph) 1 drops OP QAM [facility] Stop: 04/23/19 12:14
[2019-03-24] MEDS: TIMOLOL MALEATE 0.25% OP SOLN 5 ML BTL OP SCH (14:08)
[2019-03-24] MEDS: BIMATOPROST 0.01% OP SOLN 2.5 ML BTL OP SCH (21:08)
[2019-03-24] MEDS: SIMVASTATIN 10 MG TAB PO SCH (21:09)
[2019-03-25 05:45] LABS: BUN Creatinine Ratio 13.2 (10-20); Calcium 8.3 mg/dl (8.5-10.1); Creatinine Clr Calc Pharmacy 45.3 ml/min; Est GFR (African American) 88.5; Est GFR (Non-African American) 76.4; Potassium 3.8 mmol/L (3.5-5.1)
[2019-03-25] MEDS: INSULIN ASPART 100 UNITS/ML 3 ML PEN SC SCH ×3 (08:16→19:29)
[2019-03-25] MEDS: TIMOLOL MALEATE 0.25% OP SOLN 5 ML BTL OP SCH (08:17)
[2019-03-25] MEDS: POLYETHYLENE (MIRALAX) 17 GM PACK PO SCH (08:17)
--- NOTE | 2019-03-25 12:28 | Surgery Progress Note ---
Date of Service pt is still not pass gas or BM yet, some nausea, no vomiting, no fever, no significant abdominal pain, KUB today, no change for SBO, March 25, 2019 Assessment & Plan (1) SBO (small bowel obstruction): pt is a 83 year-old female who was admitted to hospital for SBO, IMP: SBO, agree with conservative treatment first, NPO, IV fluid, control pain, hold coumadin now, repeat INR, PT , labs, KUB in morning, no surgical indication now, will F/U , pt agrees with the plan, I answered all questions, possible surgery treatment if pt's symptoms are getting worse, 03/23/2019 10:01am doing better. continue treatment, will F/U 03/24/2019 9:29am stable, KUB today, miralax will F/U 03/25/2019 12:29PM still SBO, not pass gas or BM, order small bowel study follow through start lovenex 30mg SQ once a day, I recommend to do exploratory laparotomy possible bowel resection tomorrow, D/W benefits, risks and alternatives of the surgery, pt agrees with the plan, I answered all questions, check PT, INR Physical Exam Constitutional: WD/WN, vitals as above well developed and well nourished ENMT: external ear and nose normal, oropharynx normal Ears: + hearing impairment Neck: trachea midline, no thyromegaly Respiratory: normal respiratory effort, lungs clear to auscultation normal respiratory effort Cardiovascular: RRR, no murmur, no edema Rate/Rhythm: regular rate and regular rhythm Heart Sounds: normal S1 and normal S2 Gastrointestinal (Abdomen): some , mild tenderness at caroline-umbilical area, no distend, BS +, no rebound pain, Musculoskeletal: no cyanosis or clubbing, extremities motor strength 5/5 Skin: no rashes, warm and dry Neurologic: patellar DTR's 2+ bilat, sensation intact Psychiatric: Orientation: alert and oriented x 3 Lymphatic: no cervical or axillary lymphadenopathy Results & Data Vital Signs (Past 12 Hours) Vital Signs Temp Pulse Resp BP Pulse Ox 03/25/19 07:37 37.1 C 85 15 118/60 92 Diagnostic Findings KUB HISTORY: Small bowel obstruction. Follow-up. COMPARISON: Abdomen and pelvis CT and chest and abdominal series 03/22/2019. FINDINGS: No significant change in the mildly dilated gas-filled loops of small bowel within the left and midabdomen. The stomach is gas-filled. Prior cholecystectomy. Dextroscoliosis. Multiple pelvic phleboliths. No renal calculi. No ureteral calculi. No pneumoperitoneum or pneumatosis. IMPRESSION: No significant change in the small bowel obstruction pattern.
[2019-03-25] MEDS ORDERED: Nursing to Pharmacy Communication ONE (12:42)
[2019-03-25] MEDS: ONDANSETRON INJ 2 MG/ML 2 ML VIAL IV PRN ×2 (14:42→20:50)
[2019-03-25 14:56] LABS: INR 1.9 (0.9-1.1); Prothrombin Time 18.8 Seconds (9.0-12.0)
--- NOTE | 2019-03-25 15:24 | Hospitalist Progress Note ---
Date of Service March 25, 2019 Assessment & Plan (1) SBO (small bowel obstruction): Admitted with abdominal pain, distention and nausea CT of the abdomen and pelvis did show small bowel obstruction likely secondary to adhesions from past cholecystectomy We will keep her n.p.o., IV fluid and IV pain medications will avoid any narcotics, Appreciate surgery input and recommendation Clinically a lot better today Abdominal pain is gone and distention is improved We will continue n.p.o., IV fluid and supportive care for now KUB shows persistence of SBO without any worsening findings Condition did not improved as of this morning Complaining of more obstructive symptoms Likely to go for laparotomy tomorrow (2) HTN (hypertension): Blood pressure seems to be under control (3) Diabetes: We will hold any oral diabetic medications put her on sliding scale insulin coverage while in the hospital We will recheck hemoglobin A1c-6.7 on 03/23 (4) High cholesterol: Continue statin (5) Lumbar compression fracture: No acute symptoms History of pulmonary embolism on Coumadin INR is therapeutic Coumadin is on hold Has been started 0n Lovenox subcu UA suggestive of infection Will await culture and sensitivity Urine cultures grew 3 different organisms likely contaminant Will discontinue antibiotic Subjective 03/22 The patient was seen and examined in the medical floor She complains to have some abdominal pain without any distention Complains of nausea but no vomiting Bowel has not moved 03/23 The patient was seen and examined in medical floor She has been complaining of minimal abdominal symptoms today Minimal distention but no pain, nausea and/or vomiting Bowel has not passed yet 03/24 The patient was seen and examined in medical floor She does not have any significant symptoms except some discomfort in the epigastrium Denies any more nausea and/or vomiting Has been tolerating clears 03/25 The patient was seen and examined in medical floor She has been complaining of some discomfort today in the abdomen with some distention and nausea Denies any vomiting and she has not had any bowel movement and/or movement of any flatus Review of Systems Review of Systems: All systems reviewed and are unremarkable except as noted. Gastrointestinal: + bloating; no abdominal pain, no nausea, no vomiting and no cramping Physical Exam Physical Exam: Denies any discomfort at rest Constitutional: no acute distress and not ill appearing Eyes: PERRL, conjunctivae normal, anicteric sclerae ENMT: external ear and nose normal, oropharynx normal Neck: trachea midline, no thyromegaly Respiratory: normal respiratory effort; no respiratory distress Auscultation: lungs clear to auscultation bilaterally Cardiovascular: Rate/Rhythm: regular rate and regular rhythm Heart Sounds: no murmur Gastrointestinal (Abdomen): Inspection/Auscultation: + abdomen distended (Minimally distended in the epigastrium) and normal bowel sounds Percussion/Palpation: + abdomen tender (Minimal generalized tenderness) and abdomen soft; no guarding Bowel sounds sluggish Musculoskeletal: No acute arthritis in any joints Neurologic: moves all extremities; no focal motor deficits Alert,awake and oriented x3 Lymphatic: no cervical or axillary lymphadenopathy Results & Data Vital Signs (Past 12 Hours) Vital Signs Temp Pulse Resp BP Pulse Ox 03/25/19 07:37 37.1 C 85 15 118/60 92 Laboratory Results [facility] 03/25/19 04:41 Sodium 138 Potassium 3.8 Chloride 106 Carbon Dioxide 27 BUN 9 D Creatinine 0.72 D Glucose 97 Calcium 8.3 L Medications Administered Current Inpatient Medications Acetaminophen (Tylenol) 650 mg PO Q4H PRN PRN Reason: pain/fever Stop: 04/21/19 07:47 Last Admin: 03/22/19 09:03 Dose: 650 mg Documented by: Bimatoprost (Lumigan 0.01%) 1 drops OP PM [facility] Stop: 04/23/19 20:59 Last Admin: 03/24/19 21:08 Dose: 1 drops Documented by: Dextrose (Dextrose 50%) 25 - 50 ml IV UD PRN; Protocol PRN Reason: Hypoglycemia Protocol Stop: 04/21/19 13:29 Enoxaparin Sodium (Lovenox) 30 mg SQ DAILY@1400 [facility] Stop: 04/24/19 15:29 Furosemide (Lasix) 20 mg PO DAILY MATTHEW Stop: 04/21/19 08:59 Last Admin: 03/22/19 08:58 Dose: Not Given Documented by: Glucagon (Glucagen) 1 mg IM UD PRN; Protocol PRN Reason: Hypoglycemia Protocol Stop: 04/21/19 13:29 Glucose (Glucose 40%) 15 - 30 gm PO UD PRN; Protocol PRN Reason: Hypoglycemia Protocol Stop: 04/21/19 13:29 Glucose (Dex4 Glucose) 4 - 8 tabs PO UD PRN; Protocol PRN Reason: Hypoglycemia Protocol Stop: 04/21/19 13:29 Insulin Aspart (Novolog Flexpen) 0 units SC Q6 MATTHEW Stop: 04/24/19 17:59 Ketorolac Tromethamine (Toradol) 15 mg IV Q6H PRN PRN Reason: Pain Stop: 03/27/19 10:11 Last Admin: 03/22/19 20:16 Dose: 15 mg Documented by: Lisinopril (Zestril) 2.5 mg PO DAILY MATTHEW Stop: 04/21/19 08:59 Last Admin: 03/25/19 08:17 Dose: 2.5 mg Documented by: Miscellaneous (Carbohydrates For Hypoglycemia) 15 - 30 gm PO UD PRN PRN Reason: Hypoglycemia Treatment Stop: 04/21/19 13:29 Ondansetron HCl (Zofran) 4 mg IV Q6H PRN PRN Reason: Nausea Stop: 04/21/19 07:47 Last Admin: 03/25/19 14:42 Dose: 4 mg Documented by: Polyethylene Glycol (Miralax Powder Packet) 17 gm PO DAILY MATTHEW Stop: 04/23/19 09:29 Last Admin: 03/25/19 08:17 Dose: 17 gm Documented by: Simvastatin (Zocor) 10 mg PO PM MATTHEW Stop: 04/21/19 20:59 Last Admin: 03/24/19 21:09 Dose: 10 mg Documented by: Timolol Maleate (Timoptic 0.25% Oph) 1 drops OP QAM MATTHEW Stop: 04/23/19 12:14 Last Admin: 03/25/19 08:17 Dose: 1 drops Documented by:
[2019-03-25] MEDS ORDERED: ENOXAPARIN INJ 30 MG/0.3 ML SYR SQ SCH (15:30)
--- NOTE | 2019-03-25 15:49 | Anesthesiology Consultation ---
Date of Service March 25, 2019 The patient is an 84 y/o female that may undergo an exploratory laparotomy tomorrow by Dr. Flores for possible bowel obstruction. The patient is on warfarin due to a history of pulmonary embolism. Current INR is 1.9. Her warfarin is being withheld and INR will be rechecked tomorrow. Current hgb is 10.4. Assessment & Plan (1) Encounter for pre-operative examination: Chart Review Chart Review: Acceptable Risk for Surgery and Patient NOT seen in Pre Admission Testing Consults Requested none medicine is following the patient History Surgery Operation Date: 03/26/19 11:15 Proposed Procedures p Exploratory Laparotomy - Yue Flores MD Height/Weight Height: 5 ft Weight: 57.2 kg Allergies Allergy/AdvReac Type Severity Reaction Status Date / Time No Known Allergies Allergy Unknown Verified 03/22/19 04:13 Medications Home Medications Medication Instructions Recorded Confirmed Last Taken acetaminophen [Tylenol Arthritis 650 mg PO Q12H PRN 03/22/19 03/22/19 Unknown Pain] bimatoprost [Lumigan] 1 drp OPHTHALMIC (EYE) PM 03/22/19 03/22/19 03/20/19 21:00 calcium carbonate-vitamin D3 1 tab PO BID 03/22/19 03/22/19 Unknown [id number]-bid-hyalur 1 tab PO DAILY 03/22/19 03/22/19 Unknown [Joint Health] cyanocobalamin (vitamin B-12) 0 mcg PO DAILY 03/22/19 03/22/19 Unknown [Vitamin B-12] furosemide [Lasix] 20 mg PO DAILY 03/22/19 03/22/19 Unknown lisinopril 2.5 mg PO DAILY 03/22/19 03/22/19 Unknown metformin 1,000 mg PO PM 03/22/19 03/22/19 Unknown metformin 500 mg PO QAM 03/22/19 03/22/19 Unknown simvastatin 10 mg PO PM 03/22/19 03/22/19 Unknown timolol 1 drp OPHTHALMIC (EYE) QAM 03/22/19 03/22/19 03/21/19 09:00 vit C,J-Aj-boegr-lutein-zeaxan 1 tab PO BID 03/22/19 03/22/19 Unknown [PreserVision AREDS-2] warfarin 5 mg PO DAILY 03/22/19 03/22/19 Unknown Active Medications Generic Name Dose Route Start Last Admin Trade Name Freq PRN Reason Stop Dose Admin Acetaminophen 650 mg 03/22/19 07:48 03/22/19 09:03 Tylenol PO 04/21/19 07:47 650 mg Q4H PRN Administration pain/fever Bimatoprost 1 drops 03/24/19 21:00 03/24/19 21:08 Lumigan 0.01% OP 04/23/19 20:59 1 drops PM MATTHEW Administration Furosemide 20 mg 03/22/19 09:00 03/22/19 08:58 Lasix PO 04/21/19 08:59 Not Given DAILY MATTHEW Ketorolac Tromethamine 15 mg 03/22/19 10:12 03/22/19 20:16 Toradol IV 03/27/19 10:11 15 mg Q6H PRN Administration Pain Lisinopril 2.5 mg 03/22/19 09:00 03/25/19 08:17 Zestril PO 04/21/19 08:59 2.5 mg DAILY MATTHEW Administration Ondansetron HCl 4 mg 03/22/19 07:48 03/25/19 14:42 Zofran IV 04/21/19 07:47 4 mg Q6H PRN Administration Nausea Polyethylene Glycol 17 gm 03/24/19 09:30 03/25/19 08:17 Miralax Powder Packet PO 04/23/19 09:29 17 gm DAILY MATTHEW Administration Simvastatin 10 mg 03/22/19 21:00 03/24/19 21:09 Zocor PO 04/21/19 20:59 10 mg PM MATTHEW Administration Timolol Maleate 1 drops 03/24/19 12:15 03/25/19 08:17 Timoptic 0.25% Oph OP 04/23/19 12:14 1 drops QAM MATTHEW Administration Past Medical History Medical History SBO (small bowel obstruction) (Acute) HTN (hypertension) Diabetes High cholesterol Anemia History of pulmonary embolus (PE) Past Surgical History Surgical History History of cholecystectomy Hx of appendectomy Hx of removal of ovary Social History Smoking Status: Never smoker Do You Dip or Chew Tobacco: No Hx Alcohol Use: No Hx Substance Use: No Physical Exam Vital Signs Last Vital Signs Temp 37.0 C 03/25/19 15:26 Pulse 69 10/21/19 15:26 Resp 18 03/25/19 15:26 BP 125/74 03/25/19 15:26 Pulse Ox 93 03/25/19 15:26 Testing Laboratory Results 03/23/19 05:20 03/25/19 04:41 PT 18.8 Seconds (9.0-12.0) H 03/25/19 14:37 INR 1.9 (0.9-1.1) H 03/25/19 14:37 Hemoglobin A1c 6.7 % (4.5-5.6) H 03/23/19 05:20 Urine Color Yellow 03/22/19 03:59 Urine Appearance Cloudy (Clear) A 03/22/19 03:59 Urine pH 7.0 (4.5-7.5) 03/22/19 03:59 Ur Specific [place] 1.023 (1.000-1.030) 03/22/19 03:59 Urine Protein Negative (Negative) 03/22/19 03:59 Urine Glucose (UA) Negative (Negative) 03/22/19 03:59 Urine Ketones Trace (Negative) H 03/22/19 03:59 Urine Nitrite Negative (Negative) 03/22/19 03:59 Ur Leukocyte Esterase 3+ (Negative) H 03/22/19 03:59 Urine WBC (Auto) >30 /hpf (0-5) H 03/22/19 03:59 Urine RBC (Auto) 0-4 /hpf (0-4) 03/22/19 03:59 U Hyaline Cast (Auto) 5-10 /lpf (0-5) H 03/22/19 03:59 U Epithel Cells (Auto) 10-20 /lpf (0-5) H 03/22/19 03:59 Urine Bacteria (Auto) Negative (Negative) 03/22/19 03:59 03/22/19 03:59 Urine Culture - Final Urine,Clean Catch More than three types of organisms present, all high counts mixed probable skin mike - No further identifications or sensitivities to follow. 03/25/19 03/25/19 12:11 08:02 POC Glucose 141 H 98 Electrocardiogram Date: 03/25/19 SR with PACs rate 72 Chest X-Ray Date: 03/22/19 XR abdomen 2V w PA chest HISTORY: 83 years-old Female upper abd. pain acute upper abdominal pain COMPARISON: CT abdomen and pelvis of same day TECHNIQUE: PA view the chest with erect and supine views of the abdomen FINDINGS: Cardiomediastinal and hilar silhouettes are within normal limits. There is no pneumothorax, pleural effusion, focal airspace consolidation or overt pulmonary edema. Minimal interstitial coarsening of the lung bases. Degenerative changes of the shoulders and spine. Right shoulder rotator cuff calcific tendinosis. Convex right curvature of the upper lumbar spine. Degenerative changes of the pelvis and hips. There is no pneumatosis or pneumoperitoneum. There are a few mildly dilated loops of small bowel within the left midabdomen with air-fluid levels. No urolith. Cholecystectomy. Pelvic basin calcifications are suggestive of phleboliths. IMPRESSION: 1. No acute processes of the chest. 2. Mildly dilated loops of small bowel within the left midabdomen with air-fluid levels are suggestive of ileus versus enteritis with low-grade small bowel obstruction also within the differential. Follow-up recommended. 3. Cholecystectomy. The above report was generated using voice recognition software. It may contain grammatical, syntax or spelling errors. Electronically signed by: Raoul Suazo M.D. 03/22/2019 6:34 AM Dictated: 03/22/1932 Transcribed: 03/22/1932
[2019-03-25] MEDS: PROMETHAZINE HCL 12.5 MG in SODIUM CHLORIDE 0.9% 50 ML IV PRN (17:24)
[2019-03-25] MEDS: LACTATED RINGER'S 1,000 ML IV SCH (19:30)
[2019-03-25] MEDS: SIMVASTATIN 10 MG TAB PO SCH (20:46)
[2019-03-25] MEDS: BIMATOPROST 0.01% OP SOLN 2.5 ML BTL OP SCH (20:47)
[2019-03-26] MEDS: INSULIN ASPART 100 UNITS/ML 3 ML PEN SC SCH ×4 (00:11→18:31)
[2019-03-26] MEDS: PROMETHAZINE HCL 12.5 MG in SODIUM CHLORIDE 0.9% 50 ML IV PRN (00:26)
--- NOTE | 2019-03-26 07:04 | Surgery Progress Note ---
Date of Service pt had vomiting 5 times last night, still not pass flatus or bm, 5 days for SBO, no signs improved March 26, 2019 Assessment & Plan (1) SBO (small bowel obstruction): pt is a 83 year-old female who was admitted to hospital for SBO, IMP: SBO, agree with conservative treatment first, NPO, IV fluid, control pain, hold coumadin now, repeat INR, PT , labs, KUB in morning, no surgical indication now, will F/U , pt agrees with the plan, I answered all questions, possible surgery treatment if pt's symptoms are getting worse, 03/23/2019 10:01am doing better. continue treatment, will F/U 03/24/2019 9:29am stable, KUB today, miralax will F/U 03/25/2019 12:29PM still SBO, not pass gas or BM, order small bowel study follow through start lovenex 30mg SQ once a day, I recommend to do exploratory laparotomy possible bowel resection tomorrow, D/W benefits, risks and alternatives of the surgery, pt agrees with the plan, I answered all questions, check PT, INR 03/26/2019 7:00am pt is still SBO, no improve, vomiting 5 times last night, I recommend to do exploratory laparotomy possible bowel resection or stoma, D/W benefits, risks and alternatives of the surgery, the risks - infection, bleeding, FL, DVT, stroke, organs failure, , pt understood, she agrees with the surgery, I answered all questions, Physical Exam Constitutional: WD/WN, vitals as above well developed and well nourished ENMT: external ear and nose normal, oropharynx normal Ears: + hearing impairment Neck: trachea midline, no thyromegaly Respiratory: normal respiratory effort, lungs clear to auscultation normal respiratory effort Cardiovascular: RRR, no murmur, no edema Rate/Rhythm: regular rate and regular rhythm Heart Sounds: normal S1 and normal S2 Gastrointestinal (Abdomen): Inspection/Auscultation: + abdomen distended Percussion/Palpation: + abdomen tender and abdomen soft tenderness at left side abdomen, no rebound pain, BS +. Musculoskeletal: no cyanosis or clubbing, extremities motor strength 5/5 Skin: no rashes, warm and dry Neurologic: patellar DTR's 2+ bilat, sensation intact Psychiatric: Orientation: alert and oriented x 3 Lymphatic: no cervical or axillary lymphadenopathy Results & Data Vital Signs (Past 12 Hours) Vital Signs Temp Pulse Resp BP Pulse Ox 03/25/19 23:20 37.2 C 83 16 115/69 91
[2019-03-26 07:20] LABS: Basophils # (auto) 0.01 K/uL (0-0.2); Basophils % (auto) 0.1 %; Eosinophils # (auto) 0.01 K/uL (0-0.5); Eosinophils % (auto) 0.1 %; Hematocrit (blood only) 35.4 % (37-47); Hemoglobin 11.5 g/dL (12.0-16.0); Immature Granulocytes # (auto) 0.02 K/uL (0.00-0.02); Immature Granulocytes % (auto) 0.2 %; Lymphocytes # (auto) 0.78 K/uL (1.2-3.4); Lymphocytes % (auto) 7.7 %; Mean Corpuscular Volume 92.4 fL (80-100); Mean Platelet Volume 9.5 fL (7.4-10.4); Monocytes # (auto) 0.53 K/uL (0.11-0.59); Monocytes % (auto) 5.2 %; Neutrophils # (auto) 8.84 K/uL (1.4-6.5); Neutrophils % (auto) 86.7 %; Platelet Count 186 K/uL (130-400); RDW Coefficient of Variation 12.8 % (11.5-14.5); RDW Standard Deviation 43.2 fL (36.4-46.3); Red Blood Count 3.83 M/uL (4.2-5.4); White Blood Count 10.19 K/uL (4.8-10.8)
--- NOTE | 2019-03-26 07:22 | Fluoroscopy Report ---
SMALL BOWEL FOLLOW-THROUGH CLINICAL HISTORY: Small bowel obstruction. COMPARISON STUDY: CT of the abdomen and pelvis March 22, 2019. KUB March 24, 2019. FLUOROSCOPY TIME: 0 minutes. FLUOROSCOPIC IMAGES: None. 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 A small bowel follow-through was then performed as the patient ing ested 2 cups of Optiray. FINDINGS: The scientific database curator KUB demonstrates persistent small bowel dilatation. The proximal to mid small bow el is moderately dilated. The stomach is also is distended. No contrast within the colon was noted at 4 hours and 30 minutes. This suggests a small bowel obstruction. Therefore, a delayed image obtained at 13 hours and 45 minutes. This image demonstrated decompressed distal small bowel loops with contr ast within the colon. A transition point was not well visualized is likely occult by radiography. Thi s suggests a moderate to high-grade small bowel obstruction. IMPRESSION: Moderate dilatation of the proximal to mid small bowel with decompressed distal small bow el. Gastric distention. Contrast eventually reached the colon on the delayed image obtained at 13 jey rs and 45 minutes. These findings suggest a moderate to high-grade small bowel obstruction. Electronically signed by: Panchito Steward M.D. 03/26/2019 7:21 AM
[2019-03-26 07:23] LABS: Mean Corpuscular Hgb Conc 32.5 g/dL (32-36)
[2019-03-26 07:29] LABS: INR 1.9 (0.9-1.1); Prothrombin Time 18.7 Seconds (9.0-12.0)
[2019-03-26 07:37] LABS: Albumin Level 2.9 gm/dl (3.4-5.0); BUN Creatinine Ratio 17.1 (10-20); Calcium 9.2 mg/dl (8.5-10.1); Creatinine Clr Calc Pharmacy 39.3 ml/min; Est GFR (African American) 74.5; Est GFR (Non-African American) 64.3; Potassium 4.1 mmol/L (3.5-5.1)
[2019-03-26 07:40] LABS: Albumin Globulin Ratio 0.8 (0.9-2); Bilirubin,Total 0.9 mg/dl (0.2-1); Globulin 3.6 gm/dl (2.5-4.0); Total Protein 6.5 gm/dl (6.4-8.2)
[2019-03-26] MEDS: LACTATED RINGER'S 1,000 ML IV SCH ×3 (08:03→22:07)
[2019-03-26] MEDS: TIMOLOL MALEATE 0.25% OP SOLN 5 ML BTL OP SCH (08:05)
[2019-03-26] MEDS: POLYETHYLENE (MIRALAX) 17 GM PACK PO SCH (08:06)
[2019-03-26] MEDS ORDERED: SODIUM CHLORIDE 0.9% 250 ML IV PRN ×2 (10:33→10:41)
[2019-03-26 14:06] LABS: INR 1.8 (0.9-1.1); Prothrombin Time 17.6 Seconds (9.0-12.0)
[2019-03-26] MEDS ORDERED: LIDOCAINE HCL 2% 2 ML VIAL/AMP(20MG/ML) INFIL ONE (14:41)
[2019-03-26] MEDS ORDERED: PROPOFOL IV EMULSION 10 MG/ML 20 ML VIAL IV ONE (14:41)
[2019-03-26] MEDS ORDERED: GLYCOPYRROLATE 0.2 MG/ML VIAL ONE (14:41)
[2019-03-26] MEDS ORDERED: ONDANSETRON INJ 2 MG/ML 2 ML VIAL ONE (14:41)
[2019-03-26] MEDS ORDERED: fentaNYL citrate 100 MCG/2 ML VIAL ONE ×2 (14:41)
[2019-03-26] MEDS ORDERED: PHYTONADIONE 2.5 MG in SODIUM CHLORIDE 0.9% 50 ML IV ONE (14:45)
[2019-03-26] MEDS ORDERED: CEFAZOLIN 2000MG 2,000 MG/15 ML SYR IV ONE (14:51)
--- NOTE | 2019-03-26 14:51 | History & Physical Bridge Note ---
Date of Service March 26, 2019 History & Physical Bridge Note I have examined the patient, reviewed the History & Physical and in the interval since the performance of the History & Physical I have noted the following changes of clinical significance: no changes noted
[2019-03-26] MEDS ORDERED: ONDANSETRON INJ 2 MG/ML 2 ML VIAL IV PRN (15:26)
[2019-03-26] MEDS ORDERED: HYDROmorphone INJ 1 MG/ML SYRINGE IV PRN (15:26)
[2019-03-26] MEDS ORDERED: ATROPINE SULFATE 0.1 MG/ML 10ML SYR IV PRN (15:26)
[2019-03-26] MEDS ORDERED: fentaNYL citrate 100 MCG/2 ML VIAL IV PRN (15:26)
[2019-03-26] MEDS ORDERED: ePHEDrine sulfate 50 MG/ML AMP IV PRN (15:26)
[2019-03-26] MEDS ORDERED: ALBUMIN HUMAN 5% 12.5 GM/250 ML VIAL IV ONE (16:23)
[2019-03-26] MEDS ORDERED: METFORMIN HCL ER 500 MG TABCR PO SCH (16:30)
[2019-03-26] MEDS ORDERED: BACITRACIN OINT 15 GM TUBE ONE (16:41)
--- NOTE | 2019-03-26 16:44 | Post Operative Brief Note ---
Immediate Post Op Note v1 Date of Surgery March 26, 2019 Pre & Post Diagnosis Operation Date: 03/26/19 12:35 Pre-Op Diagnosis: Small Bowel Obstruction Post-Op Diagnosis: Small Bowel Obstruction I identified the patient and participated in the time-out.: Yes Procedure Operation Date: 03/26/19 12:35 Actual Procedures p Exploratory Laparotomy and Lysis of Adhesions - Yue Flores MD Surgeon Yue Flores MD Staff Climate Scientist surgical nurse Estimated Blood Loss 10 Findings Consistent with Post-Op Diagnosis SBO caused by fiber scar band Fluids 1000ml Specimens none Drains Uribe Catheter (16fr uribe catheter inserted without difficulty by Laura bellamy RN. Uribe is patent and draining clear yellow urine. Anesthesia to monitor urine output intraoperatively.) Anesthesia Type General Complications none Disposition Accompanied Patient To Recovery: Yes Disposition: Recovery Room Overlapping Procedure I was immediately available: during the entire case.
[2019-03-26] MEDS ORDERED: ROCURONIUM BROMIDE 10 MG/ML 5 ML VIAL ONE (17:09)
[2019-03-26] MEDS ORDERED: NEOSTIGMINE METHYLSULFATE 5 MG/5 ML SYR ONE (17:09)
--- NOTE | 2019-03-26 17:31 | Anesthesiology Progress Note ---
Date of Service March 26, 2019 Anesthesia Post Procedure Vital Signs Vital Signs: Temp Pulse Pulse Pulse Resp BP BP 03/26/19 17:25 37.6 C H 69 19 130/57 L 03/26/19 17:15 37.1 C 80 20 121/56 L 03/26/19 17:05 37.1 C 83 25 H 131/62 03/26/19 16:57 37.1 C 99 H 16 128/75 03/26/19 15:24 37.2 C 87 87 20 125/62 125/62 03/26/19 15:09 36.6 C 68 18 104/63 03/26/19 14:45 37.0 C 82 18 117/66 03/26/19 14:15 37.1 C 83 17 117/68 03/26/19 14:00 37.2 C 82 17 128/70 03/26/19 13:45 37.3 C 74 17 119/66 03/26/19 13:05 37.3 C 74 17 119/66 03/26/19 12:35 36.9 C 80 18 120/72 03/26/19 12:05 37.0 C 78 17 121/69 03/26/19 11:50 36.8 C 79 18 131/66 03/26/19 11:32 36.9 C 85 18 117/64 03/26/19 07:28 37.2 C 91 H 16 126/75 03/25/19 23:20 37.2 C 83 16 115/69 Pulse Ox 03/26/19 17:25 99 03/26/19 17:15 100 03/26/19 17:05 100 03/26/19 16:57 99 03/26/19 15:24 92 03/26/19 15:09 92 03/26/19 14:45 03/26/19 14:15 03/26/19 14:00 03/26/19 13:45 03/26/19 13:05 03/26/19 12:35 03/26/19 12:05 03/26/19 11:50 03/26/19 11:32 03/26/19 07:28 91 03/25/19 23:20 91 Pain Intensity Abdomen: Pain Intensity: 0 Transfer of Care Handoff Completed per policy Notes Mental Status: alert / awake / arousable and participated in evaluation Patient Amnestic to Procedure: Yes Nausea / Vomiting: adequately controlled Pain: adequately controlled Airway Patency, RR, SpO2: stable & adequate BP & HR: stable & adequate Hydration State: stable & adequate Anesthetic Complications: no major complications apparent and Pt Satisfied with anesthetic care
--- NOTE | 2019-03-26 17:37 | Hospitalist Progress Note ---
Date of Service March 26, 2019 Assessment & Plan (1) SBO (small bowel obstruction): Admitted with abdominal pain, distention and nausea CT of the abdomen and pelvis did show small bowel obstruction likely secondary to adhesions from past cholecystectomy We will keep her n.p.o., IV fluid and IV pain medications will avoid any narcotics, Appreciate surgery input and recommendation Clinically a lot better today Abdominal pain is gone and distention is improved We will continue n.p.o., IV fluid and supportive care for now KUB shows persistence of SBO without any worsening findings Condition did not improved as of this morning Complaining of more obstructive symptoms Likely to go for laparotomy tomorrow Discussed with the surgeon She will go for exploratory laparotomy this afternoon (2) HTN (hypertension): Blood pressure seems to be under control (3) Diabetes: We will hold any oral diabetic medications put her on sliding scale insulin coverage while in the hospital We will recheck hemoglobin A1c-6.7 on 03/23 (4) High cholesterol: Continue statin (5) Lumbar compression fracture: No acute symptoms History of pulmonary embolism on Coumadin INR is therapeutic Coumadin is on hold Has been started 0n Lovenox subcu Received 2 units of fresh frozen plasma and 2.5 mg of intravenous vitamin K to reverse INR Will start anticoagulation as soon as possible following surgery UA suggestive of infection Will await culture and sensitivity Urine cultures grew 3 different organisms likely contaminant Will discontinue antibiotic Subjective 03/22 The patient was seen and examined in the medical floor She complains to have some abdominal pain without any distention Complains of nausea but no vomiting Bowel has not moved 03/23 The patient was seen and examined in medical floor She has been complaining of minimal abdominal symptoms today Minimal distention but no pain, nausea and/or vomiting Bowel has not passed yet 03/24 The patient was seen and examined in medical floor She does not have any significant symptoms except some discomfort in the epigastrium Denies any more nausea and/or vomiting Has been tolerating clears 03/25 The patient was seen and examined in medical floor She has been complaining of some discomfort today in the abdomen with some distention and nausea Denies any vomiting and she has not had any bowel movement and/or movement of any flatus 03/26 The patient was seen and examined in medical floor She continues to have more symptoms of nausea and vomiting Abdominal distention is slightly worse She has not had any bowel movement but passing gas Review of Systems Review of Systems: All systems reviewed and are unremarkable except as noted. Gastrointestinal: + bloating; no abdominal pain, no nausea, no vomiting and no cramping Physical Exam Physical Exam: Lying in bed without any acute symptoms Constitutional: no acute distress and not ill appearing Eyes: PERRL, conjunctivae normal, anicteric sclerae ENMT: external ear and nose normal, oropharynx normal Neck: trachea midline, no thyromegaly Respiratory: normal respiratory effort; no respiratory distress Auscultation: lungs clear to auscultation bilaterally Cardiovascular: Rate/Rhythm: regular rate and regular rhythm Heart Sounds: no murmur Gastrointestinal (Abdomen): Inspection/Auscultation: + abdomen distended (Minimally distended in the epigastrium) and normal bowel sounds Percussion/Palpation: + abdomen tender (Minimal generalized tenderness) and abdomen soft; no guarding Neurologic: moves all extremities; no focal motor deficits Psychiatric: A+Ox3, euthymic affect Lymphatic: no cervical or axillary lymphadenopathy Results & Data Vital Signs (Past 12 Hours) Vital Signs Temp Pulse Pulse Pulse Resp BP BP 03/26/19 17:25 37.6 C H 69 19 130/57 L 03/26/19 17:15 37.1 C 80 20 121/56 L 03/26/19 17:05 37.1 C 83 25 H 131/62 03/26/19 16:57 37.1 C 99 H 16 128/75 03/26/19 15:24 37.2 C 87 87 20 125/62 125/62 03/26/19 15:09 36.6 C 68 18 104/63 03/26/19 14:45 37.0 C 82 18 117/66 03/26/19 14:15 37.1 C 83 17 117/68 03/26/19 14:00 37.2 C 82 17 128/70 03/26/19 13:45 37.3 C 74 17 119/66 03/26/19 13:05 37.3 C 74 17 119/66 03/26/19 12:35 36.9 C 80 18 120/72 03/26/19 12:05 37.0 C 78 17 121/69 03/26/19 11:50 36.8 C 79 18 131/66 03/26/19 11:32 36.9 C 85 18 117/64 03/26/19 07:28 37.2 C 91 H 16 126/75 Pulse Ox 03/26/19 17:25 99 03/26/19 17:15 100 03/26/19 17:05 100 03/26/19 16:57 99 03/26/19 15:24 92 03/26/19 15:09 92 03/26/19 14:45 03/26/19 14:15 03/26/19 14:00 03/26/19 13:45 03/26/19 13:05 03/26/19 12:35 03/26/19 12:05 03/26/19 11:50 03/26/19 11:32 03/26/19 07:28 91 Laboratory Results Short CBC 03/26/19 Range/Units 07:02 WBC 10.19 (4.8-10.8) K/uL Hgb 11.5 L (12.0-16.0) g/dL Hct 35.4 L (37-47) % Plt Count 186 (130-400) K/uL BMP 03/26/19 07:02 Sodium 140 Potassium 4.1 Chloride 105 Carbon Dioxide 25 BUN 14 D Creatinine 0.83 Glucose 135 H Calcium 9.2 Liver Function 03/26/19 Range/Units 07:02 Total Bilirubin 0.9 (0.2-1) mg/dl AST 13 L (15-37) U/L ALT 10 L (12-78) U/L Alkaline Phosphatase 61 (45-117) U/L Albumin 2.9 L (3.4-5.0) gm/dl Medications Administered Current Inpatient Medications Acetaminophen (Tylenol) 650 mg PO Q4H PRN PRN Reason: pain/fever Stop: 04/21/19 07:47 Last Admin: 03/22/19 09:03 Dose: 650 mg Documented by: Atropine Sulfate (Atropine Sulfate) 0.5 mg IV Q1M PRN PRN Reason: PACU Use-HR<40 &/or Bradycardi Stop: 03/26/19 20:26 Bimatoprost (Lumigan 0.01%) 1 drops OP PM MATTHEW Stop: 04/23/19 20:59 Last Admin: 03/25/19 20:47 Dose: 1 drops Documented by: Dextrose (Dextrose 50%) 25 - 50 ml IV UD PRN; Protocol PRN Reason: Hypoglycemia Protocol Stop: 04/21/19 13:29 Enoxaparin Sodium (Lovenox) 30 mg SQ DAILY@1400 [facility] Stop: 04/24/19 15:29 Last Admin: 03/25/19 17:24 Dose: 30 mg Documented by: Ephedrine Sulfate (Ephedrine Sulfate) 5 mg IV Q5M PRN PRN Reason: PACU Use Only-SBP<90 mmHg Stop: 03/26/19 20:26 Fentanyl Citrate (Fentanyl Citrate) 25 mcg IV Q5M PRN PRN Reason: PACU Use Only-Pain Stop: 03/26/19 20:26 Furosemide (Lasix) 20 mg PO DAILY MATTHEW Stop: 04/21/19 08:59 Last Admin: 03/22/19 08:58 Dose: Not Given Documented by: Glucagon (Glucagen) 1 mg IM UD PRN; Protocol PRN Reason: Hypoglycemia Protocol Stop: 04/21/19 13:29 Glucose (Glucose 40%) 15 - 30 gm PO UD PRN; Protocol PRN Reason: Hypoglycemia Protocol Stop: 04/21/19 13:29 Glucose (Dex4 Glucose) 4 - 8 tabs PO UD PRN; Protocol PRN Reason: Hypoglycemia Protocol Stop: 04/21/19 13:29 Hydromorphone HCl (Dilaudid) 0.25 mg IV Q5M PRN PRN Reason: PACU Use Only-Pain Stop: 03/26/19 20:26 Promethazine HCl 12.5 mg/ (Sodium Chloride) 50.5 mls @ 202 mls/hr IV Q6H PRN PRN Reason: Nausea And Vomiting Stop: 04/24/19 16:33 Last Infusion: 03/26/19 00:42 Dose: Infused Documented by: Lactated Ringer's (Lr) 1,000 mls @ 80 mls/hr IV .[id number] MATTHEW Stop: 04/24/19 19:29 Last Infusion: 03/26/19 13:44 Dose: 0 mls/hr Documented by: Sodium Chloride (Nss) 250 mls @ 15 mls/hr IV .[id number] PRN PRN Reason: For Transfusion Stop: 04/25/19 10:32 Sodium Chloride (Nss) 250 mls @ 15 mls/hr IV .[id number] PRN PRN Reason: For Transfusion Stop: 11/21/19 10:40 Insulin Aspart (Novolog Flexpen) 0 units SC Q6 MATTHEW Stop: 04/24/19 17:59 Last Admin: 03/26/19 12:13 Dose: Not Given Documented by: Ketorolac Tromethamine (Toradol) 15 mg IV Q6H PRN PRN Reason: Pain Stop: 03/27/19 10:11 Last Admin: 03/22/19 20:16 Dose: 15 mg Documented by: Lisinopril (Zestril) 2.5 mg PO DAILY MATTHEW Stop: 04/21/19 08:59 Last Admin: 03/26/19 08:06 Dose: Not Given Documented by: Miscellaneous (Carbohydrates For Hypoglycemia) 15 - 30 gm PO UD PRN PRN Reason: Hypoglycemia Treatment Stop: 04/21/19 13:29 Ondansetron HCl (Zofran) 4 mg IV Q6H PRN PRN Reason: Nausea Stop: 04/21/19 07:47 Last Admin: 03/25/19 20:50 Dose: 4 mg Documented by: Ondansetron HCl (Zofran) 4 mg IV ONCE PRN PRN Reason: PACU Use Only-Nausea/Vomiting Stop: 03/26/19 20:26 Polyethylene Glycol (Miralax Powder Packet) 17 gm PO DAILY MATTHEW Stop: 04/23/19 09:29 Last Admin: 03/26/19 08:06 Dose: Not Given Documented by: Simvastatin (Zocor) 10 mg PO PM MATTHEW Stop: 04/21/19 20:59 Last Admin: 03/25/19 20:46 Dose: Not Given Documented by: Timolol Maleate (Timoptic 0.25% Oph) 1 drops OP QAM MATTHEW Stop: 04/23/19 12:14 Last Admin: 03/26/19 08:05 Dose: 1 drops Documented by:
--- NOTE | 2019-03-26 17:52 | Operative Report ---
DATE OF OPERATION: 03/26/2019 PREOPERATIVE DIAGNOSIS: Small-bowel obstruction. POSTOPERATIVE DIAGNOSIS: Small-bowel obstruction. OPERATION: Exploratory laparotomy and lysis of adhesion. SURGEON: Yue Flores MD. ANESTHESIA: General. ESTIMATED BLOOD LOSS: About 10 mL. FINDINGS: Small-bowel obstruction caused by the fibrous scar band. COMPLICATIONS: None. INDICATIONS FOR THE PROCEDURE: This is an 84-year-old female who was admitted to hospital for small-bowel obstruction. We did a conservative treatment over 4 days, the patient did not get any improvement and I recommended to do the exploratory laparotomy, possible bowel resection, possible stoma. I did talk to the patient and patient's son about the benefit and risk, alternate procedure. I indicated the risks may include but not limited such as bleeding, infection, injury to the bowel, myocardial infarction, DVT, stroke, even . They understand. The patient signed informed consent and I answered all questions. DETAILS OF PROCEDURE: We brought the patient to the OR, put the patient in the supine position. The patient received SCD on bilateral legs to prevent DVT. Also, patient received 2 grams Ancef IV for prophylactic antibiotic. The patient received general anesthesia without difficulty. The patient also received Tejada catheter. The abdomen was appropriately draped in routine sterile fashion. After timeout, I made a midline incision. The lungs are about 10 cm and getting into abdomen without difficulty. Then we mobilized the small bowel, found the patient had one scar fibrous band that caused the small-bowel obstruction. I released the band and all of the small bowel was patent and then we followed the small bowel to the cecum. No ischemic bowel and hemostat is obtained, now closed the fascial layer by using #1 PDS continuous running, closed subcutaneous layer by using 2-0 Vicryl continuous running, closed skin by using staple. We put the dressing on. The patient tolerated the procedure well. All instrument, needle and sponge count were correct x2 at the end of the case. The patient transferred to recovery room in stable condition. After procedure, I did talk to the patient's son about the OR finding and procedure we did, he understands. I attest to the content of the Intraoperative Record and any orders documented therein. Any exceptions are noted below. HERSON
[2019-03-26] MEDS ORDERED: NON-FORMULARY MEDICATION (Acetaminophen [Tylenol Arthritis Pain] 650 MG) PO PRN (18:11)
[2019-03-26] MEDS: ACETAMINOPHEN 325 MG TAB PO PRN (18:22)
[2019-03-26] MEDS ORDERED: TRAMADOL HCL 50 MG TABLET PO PRN (20:05)
[2019-03-26] MEDS ORDERED: KETOROLAC TROMETHAMINE 15 MG/ML VIAL IV ONE (20:15)
[2019-03-26] MEDS: SIMVASTATIN 10 MG TAB PO SCH (20:50)
[2019-03-26] MEDS: CALCIUM 600MG + VIT D 400 IU TAB PO SCH (20:51)
[2019-03-26] MEDS: BIMATOPROST 0.01% OP SOLN 2.5 ML BTL OP SCH (20:51)
--- NOTE | 2019-03-26 20:53 | Hospitalist Progress Note ---
Date of Service March 26, 2019 Subjective SBP noted to be 90s postop as per RN despite ongoing IVF. AP Postop hypotension IVF bolus Hold home FAUZIA inhibitor for now. Will relay to AM provider. Results & Data Vital Signs (Past 12 Hours) Vital Signs Temp Pulse Pulse Pulse Pulse Resp BP 03/26/19 19:55 37.3 C 84 17 03/26/19 18:49 37.3 C 74 16 03/26/19 18:25 37.1 C 79 17 03/26/19 17:45 37.6 C H 68 22 03/26/19 17:35 37.6 C H 75 22 03/26/19 17:25 37.6 C H 69 19 03/26/19 17:15 37.1 C 80 20 03/26/19 17:05 37.1 C 83 25 H 03/26/19 16:57 37.1 C 99 H 16 03/26/19 15:24 37.2 C 87 87 20 125/62 03/26/19 15:09 36.6 C 68 18 104/63 03/26/19 14:45 37.0 C 82 18 117/66 03/26/19 14:15 37.1 C 83 17 117/68 03/26/19 14:00 37.2 C 82 17 128/70 03/26/19 13:45 37.3 C 74 17 119/66 03/26/19 13:05 37.3 C 74 17 119/66 03/26/19 12:35 36.9 C 80 18 120/72 03/26/19 12:05 37.0 C 78 17 121/69 03/26/19 11:50 36.8 C 79 18 131/66 03/26/19 11:32 36.9 C 85 18 117/64 BP Pulse Ox 03/26/19 19:55 92/53 L 97 03/26/19 18:49 103/56 L 99 03/26/19 18:25 105/61 92 03/26/19 17:45 111/55 L 98 03/26/19 17:35 116/52 L 99 03/26/19 17:25 130/57 L 99 03/26/19 17:15 121/56 L 100 03/26/19 17:05 131/62 100 03/26/19 16:57 128/75 99 03/26/19 15:24 125/62 92 03/26/19 15:09 92 03/26/19 14:45 03/26/19 14:15 03/26/19 14:00 03/26/19 13:45 03/26/19 13:05 03/26/19 12:35 03/26/19 12:05 03/26/19 11:50 03/26/19 11:32
[2019-03-26] MEDS ORDERED: SODIUM CHLORIDE 0.9% 500 ML IV ONE (21:00)
[2019-03-26 21:31] LABS: Hematocrit (blood only) 30.1 % (37-47); Hemoglobin 9.9 g/dL (12.0-16.0)
[2019-03-26 21:48] LABS: BUN Creatinine Ratio 20.4 (10-20); Calcium 8.2 mg/dl (8.5-10.1); Creatinine Clr Calc Pharmacy 38.8 ml/min; Est GFR (African American) 73.5; Est GFR (Non-African American) 63.4; Magnesium 1.4 mg/dl (1.8-2.4); Potassium 3.7 mmol/L (3.5-5.1)
[2019-03-26] MEDS: MAGNESIUM SULFATE / D5W 1 GM/100 ML BAG IV SCH (23:42)
[2019-03-27] MEDS: INSULIN ASPART 100 UNITS/ML 3 ML PEN SC SCH ×3 (00:33→12:07)
[2019-03-27 05:33] LABS: Basophils # (auto) 0.01 K/uL (0-0.2); Basophils % (auto) 0.1 %; Eosinophils # (auto) 0.15 K/uL (0-0.5); Eosinophils % (auto) 2.2 %; Hematocrit (blood only) 27.6 % (37-47); Hemoglobin 8.9 g/dL (12.0-16.0); Immature Granulocytes # (auto) 0.01 K/uL (0.00-0.02); Immature Granulocytes % (auto) 0.1 %; Lymphocytes # (auto) 1.02 K/uL (1.2-3.4); Mean Corpuscular Hgb Conc 32.2 g/dL (32-36); Mean Corpuscular Volume 92.9 fL (80-100); Monocytes # (auto) 0.41 K/uL (0.11-0.59); Neutrophils # (auto) 5.21 K/uL (1.4-6.5); Neutrophils % (auto) 76.6 %; Platelet Count 123 K/uL (130-400); RDW Coefficient of Variation 12.9 % (11.5-14.5); Red Blood Count 2.97 M/uL (4.2-5.4); White Blood Count 6.81 K/uL (4.8-10.8)
[2019-03-27] MEDS: LACTATED RINGER'S 1,000 ML IV SCH ×2 (06:03→15:14)
[2019-03-27 06:05] LABS: Calcium 7.9 mg/dl (8.5-10.1); Creatinine Clr Calc Pharmacy 43.4 ml/min; Magnesium 1.9 mg/dl (1.8-2.4)
[2019-03-27 06:17] LABS: Est GFR (African American) 84.2; Est GFR (Non-African American) 72.7; Potassium 3.6 mmol/L (3.5-5.1)
[2019-03-27] MEDS: TIMOLOL MALEATE 0.25% OP SOLN 5 ML BTL OP SCH (07:20)
[2019-03-27] MEDS: CALCIUM 600MG + VIT D 400 IU TAB PO SCH ×2 (07:25→20:15)
[2019-03-27] MEDS: CEROVITE ADV FORMULA TAB PO SCH (07:25)
[2019-03-27] MEDS: CYANOCOBALAMIN 500 MCG TABLET (VITAMIN B-12) PO SCH (07:25)
[2019-03-27] MEDS ORDERED: METFORMIN HCL ER 500 MG TABCR PO SCH (07:30)
[2019-03-27] MEDS ORDERED: NON-FORMULARY MEDICATION (Cartilage-Collagen-Bor-Hyalur [Joint Health] 1 TAB) PO SCH (09:00)
[2019-03-27] MEDS ORDERED: ENOXAPARIN INJ 30 MG/0.3 ML SYR SQ SCH (09:00)
[2019-03-27] MEDS ORDERED: HYDROmorphone INJ 0.5 MG/0.5 ML SYR IV PRN (10:47)
[2019-03-27 11:04] LABS: Hematocrit (blood only) 30.9 % (37-47); Hemoglobin 9.9 g/dL (12.0-16.0); Mean Corpuscular Hemoglobin 29.8 pg (25-34); Mean Corpuscular Volume 93.1 fL (80-100); Mean Platelet Volume 8.9 fL (7.4-10.4); Platelet Count 138 K/uL (130-400); RDW Coefficient of Variation 13.1 % (11.5-14.5); RDW Standard Deviation 44.5 fL (36.4-46.3); Red Blood Count 3.32 M/uL (4.2-5.4); White Blood Count 7.81 K/uL (4.8-10.8)
--- NOTE | 2019-03-27 11:26 | Surgery Progress Note ---
Date of Service pull out uribe catheter March 27, 2019 Assessment & Plan (1) SBO (small bowel obstruction): POD # 1 s/p ex lap, lysis of adhesions -vitals stable, afebrile - NGT with 200 cc last shift, 2900 total since placement, green bilious - minimal post op pain - UO low overnight 200 cc last shift -H&H 8.9/27.6 today (11.5/35.4 preop) Plan: Continue pain management as needed continue npo continue NGT to LIS Incentive spirometry OOB to chair and ambulate with assistance today will follow UO today and determine need for Uribe monitor H&H, likely dilutional, patient asymptomatic Dr. Flores to see patient this afternoon Subjective feeling okay, not much abdominal pain. More of a sore throat than anything no n/v little amount of flatus, no bowel movement does not feel as bloated today SBP noted to be 90s postop as per RN despite ongoing IVF. AP Postop hypotension IVF bolus Hold home FAUZIA inhibitor for now. Will relay to AM provider. Physical Exam Constitutional: WD/WN, vitals as above well developed and well nourished; no acute distress ENMT: external ear and nose normal, oropharynx normal Ears: + hearing impairment Neck: trachea midline, no thyromegaly Respiratory: normal respiratory effort, lungs clear to auscultation normal respiratory effort Cardiovascular: RRR, no murmur, no edema Rate/Rhythm: regular rate and regular rhythm Heart Sounds: normal S1 and normal S2 Gastrointestinal (Abdomen): Inspection/Auscultation: abdomen normal to ins pection, + abdomen distended and + hypoactive bowel sounds; + abnormal bowel sounds Percussion/Palpation: + abdomen tender and abdomen soft; no guarding and abdomen not rigid Musculoskeletal: no cyanosis or clubbing, extremities motor strength 5/5 Skin: no rashes, warm and dry Neurologic: patellar DTR's 2+ bilat, sensation intact awake Psychiatric: A+Ox3, euthymic affect Orientation: alert and oriented x 3 Lymphatic: no cervical or axillary lymphadenopathy Results & Data Vital Signs (Past 12 Hours) Vital Signs Temp Pulse Pulse Resp BP Pulse Ox 03/27/19 07:52 37.5 C 81 16 110/64 94 03/27/19 02:55 37.4 C 80 16 94/52 L 94 03/26/19 23:26 37.1 C 78 16 94/50 L 95 Laboratory Results 03/27/19 03/27/19 03/27/19 Range/Units 10:54 05:58 05:10 WBC 7.81 (4.8-10.8) K/uL RBC 3.32 L (4.2-5.4) M/uL Hgb 9.9 L (12.0-16.0) g/dL Hct 30.9 L (37-47) % MCV 93.1 (80-100) fL MCH 29.8 (25-34) pg MCHC 32.0 (32-36) g/dL RDW Std Deviation 44.5 (36.4-46.3) fL RDW Coeff of [place] 13.1 (11.5-14.5) % Plt Count 138 (130-400) K/uL MPV 8.9 (7.4-10.4) fL Immature Gran % (Auto) % Neut % (Auto) % Lymph % (Auto) % [place] % (Auto) % Eos % (Auto) % Baso % (Auto) % Immature Gran # (Auto) (0.00-0.02) K/uL Neut # (Auto) (1.4-6.5) K/uL Lymph # (Auto) (1.2-3.4) K/uL [place] # (Auto) (0.11-0.59) K/uL Eos # (Auto) (0-0.5) K/uL Baso # (Auto) (0-0.2) K/uL PT (9.0-12.0) Seconds INR (0.9-1.1) Sodium 142 (136-145) mmol/L Potassium 3.6 (3.5-5.1) mmol/L Chloride 108 H (98-107) mmol/L Carbon Dioxide 28 (21-32) mmol/L Anion Gap 6.0 (3-11) BUN 17 (7-18) mg/dl Creatinine 0.75 (0.6-1.2) mg/dl Est Cr Clr Drug Dosing 43.4 ml/min Est GFR ( Amer) 84.2 Est GFR (Non-Af Amer) 72.7 BUN/Creatinine Ratio 23.0 H (10-20) Glucose 84 (70-99) mg/dl POC Glucose 89 (70-99) Lactate (0.4-2.0) mmol/L Calcium 7.9 L (8.5-10.1) mg/dl Magnesium 1.9 (1.8-2.4) mg/dl Blood Type Antibody Screen 03/27/19 03/26/19 03/26/19 Range/Units 05:10 23:58 21:22 WBC 6.81 (4.8-10.8) K/uL RBC 2.97 L (4.2-5.4) M/uL Hgb 8.9 L (12.0-16.0) g/dL Hct 27.6 L (37-47) % MCV 92.9 (80-100) fL MCH 30.0 (25-34) pg MCHC 32.2 (32-36) g/dL RDW Std Deviation 44.0 (36.4-46.3) fL RDW Coeff of [place] 12.9 (11.5-14.5) % Plt Count 123 L (130-400) K/uL MPV 9.0 (7.4-10.4) fL Immature Gran % (Auto) 0.1 % Neut % (Auto) 76.6 % Lymph % (Auto) 15.0 % [place] % (Auto) 6.0 % Eos % (Auto) 2.2 % Baso % (Auto) 0.1 % Immature Gran # (Auto) 0.01 (0.00-0.02) K/uL Neut # (Auto) 5.21 (1.4-6.5) K/uL Lymph # (Auto) 1.02 L (1.2-3.4) K/uL [place] # (Auto) 0.41 (0.11-0.59) K/uL Eos # (Auto) 0.15 (0-0.5) K/uL Baso # (Auto) 0.01 (0-0.2) K/uL PT (9.0-12.0) Seconds INR (0.9-1.1) Sodium (136-145) mmol/L Potassium (3.5-5.1) mmol/L Chloride (98-107) mmol/L Carbon Dioxide (21-32) mmol/L Anion Gap (3-11) BUN (7-18) mg/dl Creatinine (0.6-1.2) mg/dl Est Cr Clr Drug Dosing ml/min Est GFR ( Amer) Est GFR (Non-Af Amer) BUN/Creatinine Ratio (10-20) Glucose (70-99) mg/dl POC Glucose 100 H (70-99) Lactate 1.0 (0.4-2.0) mmol/L Calcium (8.5-10.1) mg/dl Magnesium (1.8-2.4) mg/dl Blood Type Antibody Screen 03/26/19 03/26/19 03/26/19 Range/Units 21:22 21:22 18:02 WBC (4.8-10.8) K/uL RBC (4.2-5.4) M/uL Hgb 9.9 L (12.0-16.0) g/dL Hct 30.1 L (37-47) % MCV (80-100) fL MCH (25-34) pg MCHC (32-36) g/dL RDW Std Deviation (36.4-46.3) fL RDW Coeff of [place] (11.5-14.5) % Plt Count (130-400) K/uL MPV (7.4-10.4) fL Immature Gran % (Auto) % Neut % (Auto) % Lymph % (Auto) % [place] % (Auto) % Eos % (Auto) % Baso % (Auto) % Immature Gran # (Auto) (0.00-0.02) K/uL Neut # (Auto) (1.4-6.5) K/uL Lymph # (Auto) (1.2-3.4) K/uL [place] # (Auto) (0.11-0.59) K/uL Eos # (Auto) (0-0.5) K/uL Baso # (Auto) (0-0.2) K/uL PT (9.0-12.0) Seconds INR (0.9-1.1) Sodium 142 (136-145) mmol/L Potassium 3.7 (3.5-5.1) mmol/L Chloride 108 H (98-107) mmol/L Carbon Dioxide 28 (21-32) mmol/L Anion Gap 7.0 (3-11) BUN 17 (7-18) mg/dl Creatinine 0.84 (0.6-1.2) mg/dl Est Cr Clr Drug Dosing 38.8 ml/min Est GFR ( Amer) 73.5 Est GFR (Non-Af Amer) 63.4 BUN/Creatinine Ratio 20.4 H (10-20) Glucose 88 (70-99) mg/dl POC Glucose 106 H (70-99) Lactate (0.4-2.0) mmol/L Calcium 8.2 L (8.5-10.1) mg/dl Magnesium 1.4 L (1.8-2.4) mg/dl Blood Type Antibody Screen 03/26/19 03/26/19 03/26/19 Range/Units 17:02 15:23 13:40 WBC (4.8-10.8) K/uL RBC (4.2-5.4) M/uL Hgb (12.0-16.0) g/dL Hct (37-47) % MCV (80-100) fL MCH (25-34) pg MCHC (32-36) g/dL RDW Std Deviation (36.4-46.3) fL RDW Coeff of [place] (11.5-14.5) % Plt Count (130-400) K/uL MPV (7.4-10.4) fL Immature Gran % (Auto) % Neut % (Auto) % Lymph % (Auto) % [place] % (Auto) % Eos % (Auto) % Baso % (Auto) % Immature Gran # (Auto) (0.00-0.02) K/uL Neut # (Auto) (1.4-6.5) K/uL Lymph # (Auto) (1.2-3.4) K/uL [place] # (Auto) (0.11-0.59) K/uL Eos # (Auto) (0-0.5) K/uL Baso # (Auto) (0-0.2) K/uL PT 17.6 H (9.0-12.0) Seconds INR 1.8 H (0.9-1.1) Sodium (136-145) mmol/L Potassium (3.5-5.1) mmol/L Chloride (98-107) mmol/L Carbon Dioxide (21-32) mmol/L Anion Gap (3-11) BUN (7-18) mg/dl Creatinine (0.6-1.2) mg/dl Est Cr Clr Drug Dosing ml/min Est GFR ( Amer) Est GFR (Non-Af Amer) BUN/Creatinine Ratio (10-20) Glucose (70-99) mg/dl POC Glucose 105 H 119 H (70-99) Lactate (0.4-2.0) mmol/L Calcium (8.5-10.1) mg/dl Magnesium (1.8-2.4) mg/dl Blood Type Antibody Screen 03/26/19 03/26/19 Range/Units 11:58 07:08 WBC (4.8-10.8) K/uL RBC (4.2-5.4) M/uL Hgb (12.0-16.0) g/dL Hct (37-47) % MCV (80-100) fL MCH (25-34) pg MCHC (32-36) g/dL RDW Std Deviation (36.4-46.3) fL RDW Coeff of [place] (11.5-14.5) % Plt Count (130-400) K/uL MPV (7.4-10.4) fL Immature Gran % (Auto) % Neut % (Auto) % Lymph % (Auto) % [place] % (Auto) % Eos % (Auto) % Baso % (Auto) % Immature Gran # (Auto) (0.00-0.02) K/uL Neut # (Auto) (1.4-6.5) K/uL Lymph # (Auto) (1.2-3.4) K/uL [place] # (Auto) (0.11-0.59) K/uL Eos # (Auto) (0-0.5) K/uL Baso # (Auto) (0-0.2) K/uL PT (9.0-12.0) Seconds INR (0.9-1.1) Sodium (136-145) mmol/L Potassium (3.5-5.1) mmol/L Chloride (98-107) mmol/L Carbon Dioxide (21-32) mmol/L Anion Gap (3-11) BUN (7-18) mg/dl Creatinine (0.6-1.2) mg/dl Est Cr Clr Drug Dosing ml/min Est GFR ( Amer) Est GFR (Non-Af Amer) BUN/Creatinine Ratio (10-20) Glucose (70-99) mg/dl POC Glucose 130 H (70-99) Lactate (0.4-2.0) mmol/L Calcium (8.5-10.1) mg/dl Magnesium (1.8-2.4) mg/dl Blood Type A Positive Antibody Screen NEGATIVE
--- NOTE | 2019-03-27 12:32 | Surgery Progress Note ---
Date of Service pt is doing better, no nausea, no vomiting, March 27, 2019 Assessment & Plan (1) SBO (small bowel obstruction): POD # 1 s/p ex lap, lysis of adhesions -vitals stable, afebrile - NGT with 200 cc last shift, 2900 total since placement, green bilious - minimal post op pain - UO low overnight 200 cc last shift -H&H 8.9/27.6 today (11.5/35.4 preop) Plan: Continue pain management as needed continue npo continue NGT to LIS Incentive spirometry OOB to chair and ambulate with assistance today will follow UO today and determine need for [place] monitor H&H, likely dilutional, patient asymptomatic Dr. Flores to see patient this afternoon 03/27/2019 12:30 PM, POD 1, doing fine, miralax, 10 mg dulcolax, po, resume coumadin tonight, pull out NT today afternoon, will F/U Subjective SBP noted to be 90s postop as per RN despite ongoing IVF. AP Postop hypotension IVF bolus Hold home FAUZIA inhibitor for now. Will relay to AM provider. Physical Exam Constitutional: WD/WN, vitals as above well developed and well nourished Neck: trachea midline, no thyromegaly Respiratory: normal respiratory effort, lungs clear to auscultation Cardiovascular: RRR, no murmur, no edema Gastrointestinal (Abdomen): Percussion/Palpation: abdomen soft mild incision pain, incision intact Musculoskeletal: no cyanosis or clubbing, extremities motor strength 5/5 Skin: no rashes, warm and dry Neurologic: awake Psychiatric: Orientation: alert and oriented x 3 Results & Data Vital Signs (Past 12 Hours) Vital Signs Temp Pulse Pulse Resp BP Pulse Ox 03/27/19 12:13 37.0 C 89 16 112/67 92 03/27/19 07:52 37.5 C 81 16 110/64 94 03/27/19 02:55 37.4 C 80 16 94/52 L 94 Laboratory Results Abnormal lab results 03/26/19 03/26/19 03/26/19 Range/Units 13:40 15:23 17:02 RBC (4.2-5.4) M/uL Hgb (12.0-16.0) g/dL Hct (37-47) % Plt Count (130-400) K/uL Lymph # (Auto) (1.2-3.4) K/uL PT 17.6 H (9.0-12.0) Seconds INR 1.8 H (0.9-1.1) Chloride (98-107) mmol/L BUN/Creatinine Ratio (10-20) POC Glucose 119 H 105 H (70-99) Calcium (8.5-10.1) mg/dl Magnesium (1.8-2.4) mg/dl 03/26/19 03/26/19 03/26/19 Range/Units 18:02 21:22 21:22 RBC (4.2-5.4) M/uL Hgb 9.9 L (12.0-16.0) g/dL Hct 30.1 L (37-47) % Plt Count (130-400) K/uL Lymph # (Auto) (1.2-3.4) K/uL PT (9.0-12.0) Seconds INR (0.9-1.1) Chloride 108 H (98-107) mmol/L BUN/Creatinine Ratio 20.4 H (10-20) POC Glucose 106 H (70-99) Calcium 8.2 L (8.5-10.1) mg/dl Magnesium 1.4 L (1.8-2.4) mg/dl 03/26/19 03/27/19 03/27/19 Range/Units 23:58 05:10 05:10 RBC 2.97 L (4.2-5.4) M/uL Hgb 8.9 L (12.0-16.0) g/dL Hct 27.6 L (37-47) % Plt Count 123 L (130-400) K/uL Lymph # (Auto) 1.02 L (1.2-3.4) K/uL PT (9.0-12.0) Seconds INR (0.9-1.1) Chloride 108 H (98-107) mmol/L BUN/Creatinine Ratio 23.0 H (10-20) POC Glucose 100 H (70-99) Calcium 7.9 L (8.5-10.1) mg/dl Magnesium (1.8-2.4) mg/dl 03/27/19 Range/Units 10:54 RBC 3.32 L (4.2-5.4) M/uL Hgb 9.9 L (12.0-16.0) g/dL Hct 30.9 L (37-47) % Plt Count (130-400) K/uL Lymph # (Auto) (1.2-3.4) K/uL PT (9.0-12.0) Seconds INR (0.9-1.1) Chloride (98-107) mmol/L BUN/Creatinine Ratio (10-20) POC Glucose (70-99) Calcium (8.5-10.1) mg/dl Magnesium (1.8-2.4) mg/dl
[2019-03-27] MEDS ORDERED: bisacodyL 5 MG TABEC PO ONE (15:47)
[2019-03-27] MEDS ORDERED: WARFARIN SOD 5 MG TAB PO SCH (16:00)
[2019-03-27] MEDS: MAGNESIUM SULFATE / D5W 1 GM/100 ML BAG IV SCH (16:02)
--- NOTE | 2019-03-27 16:09 | Hospitalist Progress Note ---
Date of Service March 27, 2019 Assessment & Plan (1) SBO (small bowel obstruction): Admitted with abdominal pain, distention and nausea CT of the abdomen and pelvis did show small bowel obstruction likely secondary to adhesions from past cholecystectomy She was kept n.p.o., received IV fluid and IV pain medications Surgery was consulted as KUB showed persistence of SBO + obstructive symptoms Pt is now s/p ex lap and lysis of adhesions (03/26/2019), tolerated procedure well (though became mildly hypotensive post-op) Will start clear liquid diet tonight, for now will cont. IV fluid and supportive care For pain dilaudid IV 0.25 mg q1h prn (2) HTN (hypertension): Blood pressure seems to be under control (3) Diabetes: We will hold any oral diabetic medications put her on sliding scale insulin coverage while in the hospital Hgb A1c-6.7 on 03/23 (4) High cholesterol: Continue statin (5) Lumbar compression fracture: No acute symptoms History of pulmonary embolism on Coumadin will cont to monitor INR, therapeutic and had to be reversed for surgery (Received 2 units of fresh frozen plasma and 2.5 mg of intravenous vitamin K to reverse INR prior to surgery) Will re-start Coumadin tonight (03/27) Has been started on Lovenox subcu UA suggestive of infection Urine cultures grew 3 different organisms likely contaminant Discontinued antibiotic Subjective Overnight post-op, pt became hypotensive SBP in 90s, received IVF. This AM pt is sitting up in the chair and says she feels well. She does not recall feeling weak or dizzy last night, says that her BP runs lower. She denies any fever, chills, nausea,vomiting. NG tube placed. Mild abdominal pain after moving - getting up from bed into the chair, otherwise says her abd. pain is well controlled. Review of Systems Review of Systems: All systems reviewed and are unremarkable except as noted. Constitutional: no fever, no chills, no fatigue and no weakness Cardiovascular: no chest pain, no dyspnea at rest and no palpitations Gastrointestinal: + abdominal pain (only mild after moving around); no nausea and no vomiting Musculoskeletal: no back pain, no neck pain, no stiffness and no myalgia Physical Exam Constitutional: well developed and well nourished; no acute distress Eyes: PERRL, conjunctivae normal, anicteric sclerae ENMT: external ear and nose normal, oropharynx normal Neck: trachea midline, no thyromegaly Respiratory: normal respiratory effort, lungs clear to auscultation Auscultation: no crackles, no rhonchi and no wheezes Cardiovascular: RRR, no murmur, no edema Extremities: no edema Chest (Breasts): Chest: normal inspection of chest Gastrointestinal (Abdomen): Inspection/Auscultation: abdomen normal to inspection (clean dry dressings placed vertically over abdomen ) and normal bowel sounds; abdomen not distended Percussion/Palpation: + abdomen tender (mildly tender to palpation) and abdomen soft; no guarding and abdomen not rigid Musculoskeletal: Head/Neck/Chest: normocephalic, head atraumatic and neck supple Extremities: extremities normal to inspection moves all 4 extremities w/o difficulty Skin: no rashes, warm and dry no jaundice Neurologic: PERRL, EOMI, accommodation nl, no face palsy, no dysarthria no sensory loss noted Psychiatric: A+Ox3, euthymic affect Speech: normal rate/rhythm/volume of speech Genitourinary: no CVA tenderness Lymphatic: no lymphedema and no cervical lymphadenopathy Results & Data Vital Signs (Past 12 Hours) Vital Signs Temp Pulse Pulse Resp BP Pulse Ox 03/27/19 15:19 37.0 C 83 17 135/76 92 03/27/19 12:13 37.0 C 89 16 112/67 92 03/27/19 07:52 37.5 C 81 16 110/64 94 Laboratory Results 03/27/19 03/27/19 03/27/19 Range/Units 12:05 10:54 05:58 WBC 7.81 (4.8-10.8) K/uL RBC 3.32 L (4.2-5.4) M/uL Hgb 9.9 L (12.0-16.0) g/dL Hct 30.9 L (37-47) % MCV 93.1 (80-100) fL MCH 29.8 (25-34) pg MCHC 32.0 (32-36) g/dL RDW Std Deviation 44.5 (36.4-46.3) fL RDW Coeff of [place] 13.1 (11.5-14.5) % Plt Count 138 (130-400) K/uL MPV 8.9 (7.4-10.4) fL Immature Gran % (Auto) % Neut % (Auto) % Lymph % (Auto) % [place] % (Auto) % Eos % (Auto) % Baso % (Auto) % Immature Gran # (Auto) (0.00-0.02) K/uL Neut # (Auto) (1.4-6.5) K/uL Lymph # (Auto) (1.2-3.4) K/uL [place] # (Auto) (0.11-0.59) K/uL Eos # (Auto) (0-0.5) K/uL Baso # (Auto) (0-0.2) K/uL Sodium (136-145) mmol/L Potassium (3.5-5.1) mmol/L Chloride (98-107) mmol/L Carbon Dioxide (21-32) mmol/L Anion Gap (3-11) BUN (7-18) mg/dl Creatinine (0.6-1.2) mg/dl Est Cr Clr Drug Dosing ml/min Est GFR ( Amer) Est GFR (Non-Af Amer) BUN/Creatinine Ratio (10-20) Glucose (70-99) mg/dl POC Glucose 79 89 (70-99) Lactate (0.4-2.0) mmol/L Calcium (8.5-10.1) mg/dl Magnesium (1.8-2.4) mg/dl 03/27/19 03/27/19 03/26/19 Range/Units 05:10 05:10 23:58 WBC 6.81 (4.8-10.8) K/uL RBC 2.97 L (4.2-5.4) M/uL Hgb 8.9 L (12.0-16.0) g/dL Hct 27.6 L (37-47) % MCV 92.9 (80-100) fL MCH 30.0 (25-34) pg MCHC 32.2 (32-36) g/dL RDW Std Deviation 44.0 (36.4-46.3) fL RDW Coeff of [place] 12.9 (11.5-14.5) % Plt Count 123 L (130-400) K/uL MPV 9.0 (7.4-10.4) fL Immature Gran % (Auto) 0.1 % Neut % (Auto) 76.6 % Lymph % (Auto) 15.0 % [place] % (Auto) 6.0 % Eos % (Auto) 2.2 % Baso % (Auto) 0.1 % Immature Gran # (Auto) 0.01 (0.00-0.02) K/uL Neut # (Auto) 5.21 (1.4-6.5) K/uL Lymph # (Auto) 1.02 L (1.2-3.4) K/uL [place] # (Auto) 0.41 (0.11-0.59) K/uL Eos # (Auto) 0.15 (0-0.5) K/uL Baso # (Auto) 0.01 (0-0.2) K/uL Sodium 142 (136-145) mmol/L Potassium 3.6 (3.5-5.1) mmol/L Chloride 108 H (98-107) mmol/L Carbon Dioxide 28 (21-32) mmol/L Anion Gap 6.0 (3-11) BUN 17 (7-18) mg/dl Creatinine 0.75 (0.6-1.2) mg/dl Est Cr Clr Drug Dosing 43.4 ml/min Est GFR ( Amer) 84.2 Est GFR (Non-Af Amer) 72.7 BUN/Creatinine Ratio 23.0 H (10-20) Glucose 84 (70-99) mg/dl POC Glucose 100 H (70-99) Lactate (0.4-2.0) mmol/L Calcium 7.9 L (8.5-10.1) mg/dl Magnesium 1.9 (1.8-2.4) mg/dl 03/26/19 03/26/19 03/26/19 Range/Units 21:22 21:22 21:22 WBC (4.8-10.8) K/uL RBC (4.2-5.4) M/uL Hgb 9.9 L (12.0-16.0) g/dL Hct 30.1 L (37-47) % MCV (80-100) fL MCH (25-34) pg MCHC (32-36) g/dL RDW Std Deviation (36.4-46.3) fL RDW Coeff of [place] (11.5-14.5) % Plt Count (130-400) K/uL MPV (7.4-10.4) fL Immature Gran % (Auto) % Neut % (Auto) % Lymph % (Auto) % [place] % (Auto) % Eos % (Auto) % Baso % (Auto) % Immature Gran # (Auto) (0.00-0.02) K/uL Neut # (Auto) (1.4-6.5) K/uL Lymph # (Auto) (1.2-3.4) K/uL [place] # (Auto) (0.11-0.59) K/uL Eos # (Auto) (0-0.5) K/uL Baso # (Auto) (0-0.2) K/uL Sodium 142 (136-145) mmol/L Potassium 3.7 (3.5-5.1) mmol/L Chloride 108 H (98-107) mmol/L Carbon Dioxide 28 (21-32) mmol/L Anion Gap 7.0 (3-11) BUN 17 (7-18) mg/dl Creatinine 0.84 (0.6-1.2) mg/dl Est Cr Clr Drug Dosing 38.8 ml/min Est GFR ( Amer) 73.5 Est GFR (Non-Af Amer) 63.4 BUN/Creatinine Ratio 20.4 H (10-20) Glucose 88 (70-99) mg/dl POC Glucose (70-99) Lactate 1.0 (0.4-2.0) mmol/L Calcium 8.2 L (8.5-10.1) mg/dl Magnesium 1.4 L (1.8-2.4) mg/dl 03/26/19 03/26/19 03/26/19 Range/Units 18:02 17:02 15:23 WBC (4.8-10.8) K/uL RBC (4.2-5.4) M/uL Hgb (12.0-16.0) g/dL Hct (37-47) % MCV (80-100) fL MCH (25-34) pg MCHC (32-36) g/dL RDW Std Deviation (36.4-46.3) fL RDW Coeff of [place] (11.5-14.5) % Plt Count (130-400) K/uL MPV (7.4-10.4) fL Immature Gran % (Auto) % Neut % (Auto) % Lymph % (Auto) % [place] % (Auto) % Eos % (Auto) % Baso % (Auto) % Immature Gran # (Auto) (0.00-0.02) K/uL Neut # (Auto) (1.4-6.5) K/uL Lymph # (Auto) (1.2-3.4) K/uL [place] # (Auto) (0.11-0.59) K/uL Eos # (Auto) (0-0.5) K/uL Baso # (Auto) (0-0.2) K/uL Sodium (136-145) mmol/L Potassium (3.5-5.1) mmol/L Chloride (98-107) mmol/L Carbon Dioxide (21-32) mmol/L Anion Gap (3-11) BUN (7-18) mg/dl Creatinine (0.6-1.2) mg/dl Est Cr Clr Drug Dosing ml/min Est GFR ( Amer) Est GFR (Non-Af Amer) BUN/Creatinine Ratio (10-20) Glucose (70-99) mg/dl POC Glucose 106 H 105 H 119 H (70-99) Lactate (0.4-2.0) mmol/L Calcium (8.5-10.1) mg/dl Magnesium (1.8-2.4) mg/dl
[2019-03-27] MEDS ORDERED: Nursing to Pharmacy Communication ONE (16:38)
[2019-03-27] MEDS ORDERED: INSULIN ASPART 100 UNITS/ML 3 ML PEN SC SCH ×3 (16:45→19:39)
[2019-03-27] MEDS ORDERED: COUGH DROP (SUGAR FREE) LOZ 24 LOZ/1 BOX BUCCAL ONE (16:49)
[2019-03-27] MEDS ORDERED: DEXTROSE 50% 50 ML SYRINGE IV STA (18:26)
[2019-03-27] MEDS ORDERED: POLYETHYLENE (MIRALAX) 17 GM PACK PO ONE (20:03)
[2019-03-27] MEDS: BIMATOPROST 0.01% OP SOLN 2.5 ML BTL OP SCH (20:16)
[2019-03-27] MEDS: SIMVASTATIN 10 MG TAB PO SCH (20:16)
[2019-03-27] MEDS ORDERED: INSULIN ASPART 100 UNITS/ML 3 ML PEN SC ONE (21:30)
[2019-03-28] MEDS ORDERED: SODIUM CHLORIDE 0.9% 500 ML IV ONE (06:35)
[2019-03-28 06:50] LABS: Basophils # (auto) 0.01 K/uL (0-0.2); Basophils % (auto) 0.1 %; Eosinophils # (auto) 0.12 K/uL (0-0.5); Eosinophils % (auto) 1.6 %; Hematocrit (blood only) 28.8 % (37-47); Hemoglobin 9.2 g/dL (12.0-16.0); Immature Granulocytes # (auto) 0.02 K/uL (0.00-0.02); Immature Granulocytes % (auto) 0.3 %; Lymphocytes # (auto) 1.24 K/uL (1.2-3.4); Lymphocytes % (auto) 16.1 %; Mean Corpuscular Hgb Conc 31.9 g/dL (32-36); Mean Corpuscular Volume 93.8 fL (80-100); Mean Platelet Volume 9.2 fL (7.4-10.4); Monocytes # (auto) 0.75 K/uL (0.11-0.59); Monocytes % (auto) 9.7 %; Neutrophils # (auto) 5.57 K/uL (1.4-6.5); Neutrophils % (auto) 72.2 %; Platelet Count 141 K/uL (130-400); RDW Coefficient of Variation 13.2 % (11.5-14.5); RDW Standard Deviation 45.2 fL (36.4-46.3); Red Blood Count 3.07 M/uL (4.2-5.4); White Blood Count 7.71 K/uL (4.8-10.8)
[2019-03-28 06:51] LABS: INR 1.4 (0.9-1.1); Prothrombin Time 13.6 Seconds (9.0-12.0)
[2019-03-28 07:09] LABS: BUN Creatinine Ratio 17.4 (10-20); Calcium 8.1 mg/dl (8.5-10.1); Creatinine Clr Calc Pharmacy 47.9 ml/min; Est GFR (African American) 92.4; Est GFR (Non-African American) 79.8; Magnesium 1.7 mg/dl (1.8-2.4); Phosphorus 2.1 mg/dl (2.5-4.9); Potassium 3.4 mmol/L (3.5-5.1)
[2019-03-28] MEDS ORDERED: METOCLOPRAMIDE HCL 10 MG/10 ML UDC PO ONE (07:24)
--- NOTE | 2019-03-28 07:30 | Surgery Progress Note ---
Date of Service POD 2, pt is doing better, less abdominal pain, no nausea, no vomiting, passed some gas,no bm yet. NG 225ml yesterday March 28, 2019 Assessment & Plan (1) SBO (small bowel obstruction): POD # 1 s/p ex lap, lysis of adhesions -vitals stable, afebrile - NGT with 200 cc last shift, 2900 total since placement, green bilious - minimal post op pain - UO low overnight 200 cc last shift -H&H 8.9/27.6 today (11.5/35.4 preop) Plan: Continue pain management as needed continue npo continue NGT to LIS Incentive spirometry OOB to chair and ambulate with assistance today will follow UO today and determine need for [place] monitor H&H, likely dilutional, patient asymptomatic Dr. Flores to see patient this afternoon 03/27/2019 12:30 PM, POD 1, doing fine, miralax, 10 mg dulcolax, po, resume coumadin tonight, pull out NT today afternoon, will F/U 03/28/2019 7:28am doing fine, passed some flatus, h/h 9.2 change coumadin to 2.5mg po once a day. 10mg reglan po today, clear diet, OOB will F/U Subjective Overnight post-op, pt became hypotensive SBP in 90s, received IVF. This AM pt is sitting up in the chair and says she feels well. She does not recall feeling weak or dizzy last night, says that her BP runs lower. She denies any fever, chills, nausea,vomiting. NG tube placed. Mild abdominal pain after moving - getting up from bed into the chair, otherwise says her abd. pain is well controlled. Physical Exam Constitutional: WD/WN, vitals as above well developed and well nourished Neck: trachea midline, no thyromegaly Respiratory: normal respiratory effort, lungs clear to auscultation Cardiovascular: RRR, no murmur, no edema Gastrointestinal (Abdomen): normal bowel sounds, soft, nontender, no hepatosplenomegaly incision intact, no redness, , BS+ Skin: no rashes, warm and dry Neurologic: patellar DTR's 2+ bilat, sensation intact Psychiatric: Orientation: alert and oriented x 3 Results & Data Vital Signs (Past 12 Hours) Vital Signs Temp Pulse Resp BP BP Pulse Ox 03/27/19 23:46 93 03/27/19 23:43 37.3 C 89 17 109/56 L 86 L 03/27/19 20:41 37.1 C 89 17 108/67 93 Laboratory Results Abnormal lab results 03/27/19 03/27/19 03/27/19 Range/Units 10:54 17:19 17:24 RBC 3.32 L (4.2-5.4) M/uL Hgb 9.9 L (12.0-16.0) g/dL Hct 30.9 L (37-47) % MCHC (32-36) g/dL [place] # (Auto) (0.11-0.59) K/uL PT (9.0-12.0) Seconds INR (0.9-1.1) Potassium (3.5-5.1) mmol/L Glucose (70-99) mg/dl POC Glucose 67 L* 100 H (70-99) Calcium (8.5-10.1) mg/dl Phosphorus (2.5-4.9) mg/dl Magnesium (1.8-2.4) mg/dl 03/27/19 03/27/19 03/27/19 Range/Units 17:53 18:15 19:28 RBC (4.2-5.4) M/uL Hgb (12.0-16.0) g/dL Hct (37-47) % MCHC (32-36) g/dL [place] # (Auto) (0.11-0.59) K/uL PT (9.0-12.0) Seconds INR (0.9-1.1) Potassium (3.5-5.1) mmol/L Glucose (70-99) mg/dl POC Glucose 68 L* 66 L* 240 H (70-99) Calcium (8.5-10.1) mg/dl Phosphorus (2.5-4.9) mg/dl Magnesium (1.8-2.4) mg/dl 03/27/19 03/28/19 03/28/19 Range/Units 21:34 06:19 06:19 RBC 3.07 L (4.2-5.4) M/uL Hgb 9.2 L (12.0-16.0) g/dL Hct 28.8 L (37-47) % MCHC 31.9 L (32-36) g/dL [place] # (Auto) 0.75 H (0.11-0.59) K/uL PT (9.0-12.0) Seconds INR (0.9-1.1) Potassium 3.4 L (3.5-5.1) mmol/L Glucose 114 H (70-99) mg/dl POC Glucose 200 H (70-99) Calcium 8.1 L (8.5-10.1) mg/dl Phosphorus 2.1 L (2.5-4.9) mg/dl Magnesium 1.7 L (1.8-2.4) mg/dl 03/28/19 Range/Units 06:19 RBC (4.2-5.4) M/uL Hgb (12.0-16.0) g/dL Hct (37-47) % MCHC (32-36) g/dL [place] # (Auto) (0.11-0.59) K/uL PT 13.6 H (9.0-12.0) Seconds INR 1.4 H (0.9-1.1) Potassium (3.5-5.1) mmol/L Glucose (70-99) mg/dl POC Glucose (70-99) Calcium (8.5-10.1) mg/dl Phosphorus (2.5-4.9) mg/dl Magnesium (1.8-2.4) mg/dl
[2019-03-28] MEDS: INSULIN ASPART 100 UNITS/ML 3 ML PEN SC SCH ×4 (08:53→21:48)
[2019-03-28] MEDS: CALCIUM 600MG + VIT D 400 IU TAB PO SCH ×2 (09:02→21:44)
[2019-03-28] MEDS: CYANOCOBALAMIN 500 MCG TABLET (VITAMIN B-12) PO SCH (09:03)
[2019-03-28] MEDS: CEROVITE ADV FORMULA TAB PO SCH (09:03)
[2019-03-28] MEDS: TIMOLOL MALEATE 0.25% OP SOLN 5 ML BTL OP SCH (09:04)
[2019-03-28] MEDS ORDERED: POTASSIUM PHOS 3 MMOL/1 ML INFUSION IV STA (09:21)
[2019-03-28] MEDS ORDERED: POTASSIUM PHOSPHATE 15 MMOL in SODIUM CHLORIDE 0.9% 250 ML IV ONE (09:30)
[2019-03-28] MEDS ORDERED: MAGNESIUM SULFATE / D5W 1 GM/100 ML BAG IV ONE (09:30)
--- NOTE | 2019-03-28 09:30 | Hospitalist Progress Note ---
Date of Service March 28, 2019 Assessment & Plan (1) SBO (small bowel obstruction): Admitted with abdominal pain, distention and nausea CT of the abdomen and pelvis did show small bowel obstruction likely secondary to adhesions from past cholecystectomy She was kept n.p.o., received IV fluid and IV pain medications Surgery was consulted as KUB showed persistence of SBO + obstructive symptoms Pt is now s/p ex lap and lysis of adhesions (03/26/2019), tolerated procedure well (though became mildly hypotensive post-op) Started clear liquid diet yesterday, tolerated well. IV fluid and supportive care For pain dilaudid IV 0.25 mg q1h prn (2) HTN (hypertension): Blood pressure seems to be under control (3) Diabetes: We will hold any oral diabetic medications put her on sliding scale insulin coverage while in the hospital Hgb A1c-6.7 on 03/23 Electrolyte abnormalities -secondary to poor/no oral intake -will improve when tolerates food -for now will correct hypomag-, hypokal-, hypophosphatemia (4) High cholesterol: Continue statin (5) Lumbar compression fracture: No acute symptoms History of pulmonary embolism on Coumadin will cont to monitor INR, therapeutic and had to be reversed for surgery (Received 2 units of fresh frozen plasma and 2.5 mg of intravenous vitamin K to reverse INR prior to surgery) Re-started Coumadin last night (03/27, will decrease dose) was on Lovenox subcu UA suggestive of infection Urine cultures grew 3 different organisms likely contaminant Discontinued antibiotic Subjective No acute events overnight. Patient sitting in the chair, comfortable. Denies any fevers, chills, chest pain, shortness of breath, abdominal pain. Did not have any bowel movement yet. NG is out and she tolerates water and orange juice. Review of Systems Constitutional: no fever, no chills and no fatigue Respiratory: no cough and no dyspnea Cardiovascular: no chest pain, no palpitations and no edema Gastrointestinal: no nausea and no vomiting Physical Exam Constitutional: well developed and well nourished; no acute distress Eyes: PERRL, conjunctivae normal, anicteric sclerae ENMT: external ear and nose normal, oropharynx normal Neck: trachea midline, no thyromegaly Respiratory: normal respiratory effort, lungs clear to auscultation Auscultation: no crackles, no rhonchi and no wheezes Cardiovascular: RRR, no murmur, no edema Extremities: no edema Chest (Breasts): Chest: normal inspection of chest Gastrointestinal (Abdomen): Inspection/Auscultation: abdomen normal to inspection (clean dry dressings placed vertically over abdomen ) and normal bowel sounds; abdomen not distended Percussion/Palpation: + abdomen tender (mildly tender to palpation) and abdomen soft; no guarding and abdomen not rigid Musculoskeletal: Head/Neck/Chest: normocephalic, head atraumatic and neck supple Extremities: extremities normal to inspection Skin: no rashes, warm and dry no jaundice Neurologic: PERRL, EOMI, accommodation nl, no face palsy, no dysarthria Psychiatric: A+Ox3, euthymic affect Speech: normal rate/rhythm/volume of speech Genitourinary: no CVA tenderness Lymphatic: no lymphedema and no cervical lymphadenopathy Results & Data Vital Signs (Past 12 Hours) Vital Signs Temp Pulse Pulse Resp BP BP Pulse Ox 03/28/19 07:54 37.3 C 84 24 132/60 94 03/27/19 23:46 93 03/27/19 23:43 37.3 C 89 17 109/56 L 86 L Laboratory Results 03/28/19 03/28/19 03/28/19 Range/Units 08:13 06:19 06:19 WBC 7.71 (4.8-10.8) K/uL RBC 3.07 L (4.2-5.4) M/uL Hgb 9.2 L (12.0-16.0) g/dL Hct 28.8 L (37-47) % MCV 93.8 (80-100) fL MCH 30.0 (25-34) pg MCHC 31.9 L (32-36) g/dL RDW Std Deviation 45.2 (36.4-46.3) fL RDW Coeff of [place] 13.2 (11.5-14.5) % Plt Count 141 (130-400) K/uL MPV 9.2 (7.4-10.4) fL Immature Gran % (Auto) 0.3 % Neut % (Auto) 72.2 % Lymph % (Auto) 16.1 % [place] % (Auto) 9.7 % Eos % (Auto) 1.6 % Baso % (Auto) 0.1 % Immature Gran # (Auto) 0.02 (0.00-0.02) K/uL Neut # (Auto) 5.57 (1.4-6.5) K/uL Lymph # (Auto) 1.24 (1.2-3.4) K/uL [place] # (Auto) 0.75 H (0.11-0.59) K/uL Eos # (Auto) 0.12 (0-0.5) K/uL Baso # (Auto) 0.01 (0-0.2) K/uL PT 13.6 H (9.0-12.0) Seconds INR 1.4 H (0.9-1.1) Sodium (136-145) mmol/L Potassium (3.5-5.1) mmol/L Chloride (98-107) mmol/L Carbon Dioxide (21-32) mmol/L Anion Gap (3-11) BUN (7-18) mg/dl Creatinine (0.6-1.2) mg/dl Est Cr Clr Drug Dosing ml/min Est GFR ( Amer) Est GFR (Non-Af Amer) BUN/Creatinine Ratio (10-20) Glucose (70-99) mg/dl POC Glucose 137 H (70-99) Calcium (8.5-10.1) mg/dl Phosphorus (2.5-4.9) mg/dl Magnesium (1.8-2.4) mg/dl 03/28/19 03/27/19 03/27/19 Range/Units 06:19 21:34 19:28 WBC (4.8-10.8) K/uL RBC (4.2-5.4) M/uL Hgb (12.0-16.0) g/dL Hct (37-47) % MCV (80-100) fL MCH (25-34) pg MCHC (32-36) g/dL RDW Std Deviation (36.4-46.3) fL RDW Coeff of [place] (11.5-14.5) % Plt Count (130-400) K/uL MPV (7.4-10.4) fL Immature Gran % (Auto) % Neut % (Auto) % Lymph % (Auto) % [place] % (Auto) % Eos % (Auto) % Baso % (Auto) % Immature Gran # (Auto) (0.00-0.02) K/uL Neut # (Auto) (1.4-6.5) K/uL Lymph # (Auto) (1.2-3.4) K/uL [place] # (Auto) (0.11-0.59) K/uL Eos # (Auto) (0-0.5) K/uL Baso # (Auto) (0-0.2) K/uL PT (9.0-12.0) Seconds INR (0.9-1.1) Sodium 141 (136-145) mmol/L Potassium 3.4 L (3.5-5.1) mmol/L Chloride 105 (98-107) mmol/L Carbon Dioxide 32 (21-32) mmol/L Anion Gap 4.0 (3-11) BUN 12 (7-18) mg/dl Creatinine 0.68 (0.6-1.2) mg/dl Est Cr Clr Drug Dosing 47.9 ml/min Est GFR ( Amer) 92.4 Est GFR (Non-Af Amer) 79.8 BUN/Creatinine Ratio 17.4 (10-20) Glucose 114 H (70-99) mg/dl POC Glucose 200 H 240 H (70-99) Calcium 8.1 L (8.5-10.1) mg/dl Phosphorus 2.1 L (2.5-4.9) mg/dl Magnesium 1.7 L (1.8-2.4) mg/dl 03/27/19 03/27/19 03/27/19 Range/Units 18:17 18:15 17:53 WBC (4.8-10.8) K/uL RBC (4.2-5.4) M/uL Hgb (12.0-16.0) g/dL Hct (37-47) % MCV (80-100) fL MCH (25-34) pg MCHC (32-36) g/dL RDW Std Deviation (36.4-46.3) fL RDW Coeff of [place] (11.5-14.5) % Plt Count (130-400) K/uL MPV (7.4-10.4) fL Immature Gran % (Auto) % Neut % (Auto) % Lymph % (Auto) % [place] % (Auto) % Eos % (Auto) % Baso % (Auto) % Immature Gran # (Auto) (0.00-0.02) K/uL Neut # (Auto) (1.4-6.5) K/uL Lymph # (Auto) (1.2-3.4) K/uL [place] # (Auto) (0.11-0.59) K/uL Eos # (Auto) (0-0.5) K/uL Baso # (Auto) (0-0.2) K/uL PT (9.0-12.0) Seconds INR (0.9-1.1) Sodium (136-145) mmol/L Potassium (3.5-5.1) mmol/L Chloride (98-107) mmol/L Carbon Dioxide (21-32) mmol/L Anion Gap (3-11) BUN (7-18) mg/dl Creatinine (0.6-1.2) mg/dl Est Cr Clr Drug Dosing ml/min Est GFR ( Amer) Est GFR (Non-Af Amer) BUN/Creatinine Ratio (10-20) Glucose (70-99) mg/dl POC Glucose 76 66 L* 68 L* (70-99) Calcium (8.5-10.1) mg/dl Phosphorus (2.5-4.9) mg/dl Magnesium (1.8-2.4) mg/dl 03/27/19 03/27/19 03/27/19 Range/Units 17:24 17:19 12:05 WBC (4.8-10.8) K/uL RBC (4.2-5.4) M/uL Hgb (12.0-16.0) g/dL Hct (37-47) % MCV (80-100) fL MCH (25-34) pg MCHC (32-36) g/dL RDW Std Deviation (36.4-46.3) fL RDW Coeff of [place] (11.5-14.5) % Plt Count (130-400) K/uL MPV (7.4-10.4) fL Immature Gran % (Auto) % Neut % (Auto) % Lymph % (Auto) % [place] % (Auto) % Eos % (Auto) % Baso % (Auto) % Immature Gran # (Auto) (0.00-0.02) K/uL Neut # (Auto) (1.4-6.5) K/uL Lymph # (Auto) (1.2-3.4) K/uL [place] # (Auto) (0.11-0.59) K/uL Eos # (Auto) (0-0.5) K/uL Baso # (Auto) (0-0.2) K/uL PT (9.0-12.0) Seconds INR (0.9-1.1) Sodium (136-145) mmol/L Potassium (3.5-5.1) mmol/L Chloride (98-107) mmol/L Carbon Dioxide (21-32) mmol/L Anion Gap (3-11) BUN (7-18) mg/dl Creatinine (0.6-1.2) mg/dl Est Cr Clr Drug Dosing ml/min Est GFR ( Amer) Est GFR (Non-Af Amer) BUN/Creatinine Ratio (10-20) Glucose (70-99) mg/dl POC Glucose 100 H 67 L* 79 (70-99) Calcium (8.5-10.1) mg/dl Phosphorus (2.5-4.9) mg/dl Magnesium (1.8-2.4) mg/dl 03/27/19 Range/Units 10:54 WBC 7.81 (4.8-10.8) K/uL RBC 3.32 L (4.2-5.4) M/uL Hgb 9.9 L (12.0-16.0) g/dL Hct 30.9 L (37-47) % MCV 93.1 (80-100) fL MCH 29.8 (25-34) pg MCHC 32.0 (32-36) g/dL RDW Std Deviation 44.5 (36.4-46.3) fL RDW Coeff of [place] 13.1 (11.5-14.5) % Plt Count 138 (130-400) K/uL MPV 8.9 (7.4-10.4) fL Immature Gran % (Auto) % Neut % (Auto) % Lymph % (Auto) % [place] % (Auto) % Eos % (Auto) % Baso % (Auto) % Immature Gran # (Auto) (0.00-0.02) K/uL Neut # (Auto) (1.4-6.5) K/uL Lymph # (Auto) (1.2-3.4) K/uL [place] # (Auto) (0.11-0.59) K/uL Eos # (Auto) (0-0.5) K/uL Baso # (Auto) (0-0.2) K/uL PT (9.0-12.0) Seconds INR (0.9-1.1) Sodium (136-145) mmol/L Potassium (3.5-5.1) mmol/L Chloride (98-107) mmol/L Carbon Dioxide (21-32) mmol/L Anion Gap (3-11) BUN (7-18) mg/dl Creatinine (0.6-1.2) mg/dl Est Cr Clr Drug Dosing ml/min Est GFR ( Amer) Est GFR (Non-Af Amer) BUN/Creatinine Ratio (10-20) Glucose (70-99) mg/dl POC Glucose (70-99) Calcium (8.5-10.1) mg/dl Phosphorus (2.5-4.9) mg/dl Magnesium (1.8-2.4) mg/dl Medications Administered Current Inpatient Medications Acetaminophen (Tylenol) 650 mg PO Q4H PRN PRN Reason: pain/fever Stop: 04/21/19 07:47 Last Admin: 03/26/19 18:22 Dose: 650 mg Documented by: Bimatoprost (Lumigan 0.01%) 1 drops OP PM MATTHEW Stop: 04/23/19 20:59 Last Admin: 03/27/19 20:16 Dose: 1 drops Documented by: Cyanocobalamin (Vitamin B-12) 500 mcg PO DAILY MATTHEW Stop: 04/26/19 08:59 Last Admin: 03/28/19 09:03 Dose: 500 mcg Documented by: Dextrose (Dextrose 50%) 25 - 50 ml IV UD PRN; Protocol PRN Reason: Hypoglycemia Protocol Stop: 04/21/19 13:29 Furosemide (Lasix) 20 mg PO DAILY MATTHEW Stop: 04/21/19 08:59 Last Admin: 03/22/19 08:58 Dose: Not Given Documented by: Glucagon (Glucagen) 1 mg IM UD PRN; Protocol PRN Reason: Hypoglycemia Protocol Stop: 04/21/19 13:29 Glucose (Glucose 40%) 15 - 30 gm PO UD PRN; Protocol PRN Reason: Hypoglycemia Protocol Stop: 04/21/19 13:29 Glucose (Dex4 Glucose) 4 - 8 tabs PO UD PRN; Protocol PRN Reason: Hypoglycemia Protocol Stop: 04/21/19 13:29 Hydromorphone HCl (Dilaudid) 0.25 mg IV Q1H PRN PRN Reason: Pain Stop: 04/10/19 10:46 Last Admin: 03/27/19 11:00 Dose: 0.25 mg Documented by: Sodium Chloride (Nss) 500 mls @ 60 mls/hr IV .Q8H20M ONE Stop: 03/28/19 14:54 Last Admin: 03/28/19 06:43 Dose: 60 mls/hr Documented by: Cefazolin Sodium 1,000 mg/ (Syringe) 7.5 mls @ 2.5 mls/min IV Q8H MATTHEW Stop: 03/30/19 09:29 Magnesium Sulfate/Dextrose (Magnesium Sulfate / D5w) 1 gm in 100 mls @ 100 mls/hr IV ONE ONE Stop: 03/28/19 10:20 Insulin Aspart (Novolog Flexpen) 0 units SC ACHS MATTHEW Stop: 04/27/19 07:29 Last Admin: 03/28/19 08:53 Dose: 1 units Documented by: Lisinopril (Zestril) 2.5 mg PO DAILY MATTHEW Stop: 04/21/19 08:59 Last Admin: 03/26/19 08:06 Dose: Not Given Documented by: Metformin HCl (Glucophage Er) 1,000 mg PO QDD MATTHEW Stop: 04/25/19 16:29 Metformin HCl (Glucophage Er) 500 mg PO QDB MATTHEW Stop: 04/26/19 07:29 Miscellaneous (Carbohydrates For Hypoglycemia) 15 - 30 gm PO UD PRN PRN Reason: Hypoglycemia Treatment Stop: 04/21/19 13:29 Last Admin: 03/27/19 17:59 Dose: 15 gm Documented by: Multivitamins/Minerals (Caltrate Plus) 1 tab PO BID MATTHEW Stop: 04/25/19 20:59 Last Admin: 03/28/19 09:02 Dose: 1 tab Documented by: Multivitamins/Minerals (Multivitamin W/ Minerals Tab) 1 tab PO DAILY MATTHEW Stop: 04/26/19 08:59 Last Admin: 03/28/19 09:03 Dose: 1 tab Documented by: Ondansetron HCl (Zofran) 4 mg IV Q6H PRN PRN Reason: Nausea Stop: 04/21/19 07:47 Last Admin: 03/25/19 20:50 Dose: 4 mg Documented by: Potassium Chloride (Klor-Con M10) 10 meq PO BID [facility] Stop: 04/27/19 08:59 Potassium Phosphate (Potassium Phosphate Replace) 15 mmol IV NOW STA Stop: 03/28/19 09:22 Simvastatin (Zocor) 10 mg PO PM MATTHEW Stop: 04/21/19 20:59 Last Admin: 03/27/19 20:16 Dose: 10 mg Documented by: Timolol Maleate (Timoptic 0.25% Oph) 1 drops OP QAM [facility] Stop: 04/23/19 12:14 Last Admin: 03/28/19 09:04 Dose: 1 drops Documented by: Tramadol HCl (Ultram) 25 mg PO Q4H PRN PRN Reason: Pain Stop: 04/25/19 20:04 Warfarin Sodium (Coumadin) 2.5 mg PO DAILY@1600 [facility] Stop: 04/27/19 15:59
[2019-03-28] MEDS: POTASSIUM CHLORIDE 10 MEQ TABCR PO SCH ×2 (09:46→21:43)
[2019-03-28] MEDS: CEFAZOLIN 1,000 MG in SYRINGE 0 ML IV SCH ×2 (09:50→18:45)
[2019-03-28] MEDS ORDERED: bisacodyL 10 MG SUPP PR STA (10:24)
[2019-03-28] MEDS: bisacodyL 10 MG SUPP PR STA ×2 (10:28→10:33)
[2019-03-28] MEDS ORDERED: LACTATED RINGER'S 500 ML IV SCH (15:30)
[2019-03-28] MEDS: WARFARIN SOD 2.5 MG TAB PO SCH (16:54)
[2019-03-28] MEDS: BIMATOPROST 0.01% OP SOLN 2.5 ML BTL OP SCH (21:44)
[2019-03-28] MEDS: SIMVASTATIN 10 MG TAB PO SCH (21:45)
[2019-03-29] MEDS: CEFAZOLIN 1,000 MG in SYRINGE 0 ML IV SCH ×3 (02:25→17:25)
[2019-03-29] MEDS ORDERED: LACTATED RINGER'S 1,000 ML IV ONE (05:34)
[2019-03-29 05:51] LABS: Basophils # (auto) 0.01 K/uL (0-0.2); Basophils % (auto) 0.1 %; Eosinophils # (auto) 0.17 K/uL (0-0.5); Eosinophils % (auto) 2.4 %; Hematocrit (blood only) 27.6 % (37-47); Hemoglobin 8.8 g/dL (12.0-16.0); Immature Granulocytes # (auto) 0.01 K/uL (0.00-0.02); Immature Granulocytes % (auto) 0.1 %; Lymphocytes # (auto) 0.91 K/uL (1.2-3.4); Lymphocytes % (auto) 12.8 %; Mean Corpuscular Hemoglobin 29.6 pg (25-34); Mean Corpuscular Hgb Conc 31.9 g/dL (32-36); Mean Corpuscular Volume 92.9 fL (80-100); Mean Platelet Volume 9.7 fL (7.4-10.4); Monocytes # (auto) 0.63 K/uL (0.11-0.59); Monocytes % (auto) 8.9 %; Neutrophils # (auto) 5.36 K/uL (1.4-6.5); Neutrophils % (auto) 75.7 %; Platelet Count 149 K/uL (130-400); RDW Standard Deviation 44.4 fL (36.4-46.3); Red Blood Count 2.97 M/uL (4.2-5.4); White Blood Count 7.09 K/uL (4.8-10.8)
[2019-03-29 06:04] LABS: INR 1.3 (0.9-1.1); Prothrombin Time 13.4 Seconds (9.0-12.0)
[2019-03-29 06:18] LABS: BUN Creatinine Ratio 14.5 (10-20); Creatinine Clr Calc Pharmacy 55.2 ml/min; Est GFR (African American) 96.9; Est GFR (Non-African American) 83.6; Potassium 3.8 mmol/L (3.5-5.1)
[2019-03-29] MEDS ORDERED: bisacodyL 5 MG TABEC PO ONE (07:02)
--- NOTE | 2019-03-29 07:02 | Surgery Progress Note ---
Date of Service doing fine, passed BM, no nausea, no vomiting, she tolerated clear diet. no abdominal pain, March 29, 2019 Assessment & Plan (1) SBO (small bowel obstruction): POD # 1 s/p ex lap, lysis of adhesions -vitals stable, afebrile - NGT with 200 cc last shift, 2900 total since placement, green bilious - minimal post op pain - UO low overnight 200 cc last shift -H&H 8.9/27.6 today (11.5/35.4 preop) Plan: Continue pain management as needed continue npo continue NGT to LIS Incentive spirometry OOB to chair and ambulate with assistance today will follow UO today and determine need for [place] monitor H&H, likely dilutional, patient asymptomatic Dr. Flores to see patient this afternoon 03/27/2019 12:30 PM, POD 1, doing fine, miralax, 10 mg dulcolax, po, resume coumadin tonight, pull out NT today afternoon, will F/U 03/28/2019 7:28am doing fine, passed some flatus, h/h 9.2 change coumadin to 2.5mg po once a day. 10mg reglan po today, clear diet, OOB will F/U 03/29/2019 6:59am doing fine, DM diet, possible D/C home tomorrow, resume home dose coumadin tomorrow. hep lock IV she can take a shower on 03/31/2019, Follow up me in 1-2 weeks, on-call surgeon will cover her this weekend Subjective No acute events overnight. Patient sitting in the chair, comfortable. Denies any fevers, chills, chest pain, shortness of breath, abdominal pain. Did not have any bowel movement yet. NG is out and she tolerates water and orange juice. Physical Exam Constitutional: WD/WN, vitals as above Neck: trachea midline, no thyromegaly Respiratory: normal respiratory effort, lungs clear to auscultation Cardiovascular: RRR, no murmur, no edema Gastrointestinal (Abdomen): Percussion/Palpation: abdomen soft NT, ND incision intact, no redness, Musculoskeletal: no cyanosis or clubbing, extremities motor strength 5/5 Skin: no rashes, warm and dry Neurologic: patellar DTR's 2+ bilat, sensation intact Psychiatric: Orientation: alert and oriented x 3 Results & Data Vital Signs (Past 12 Hours) Vital Signs Temp Pulse Resp BP Pulse Ox 03/28/19 23:24 37.7 C H 91 H 18 115/65 92 Laboratory Results Abnormal lab results 03/28/19 03/28/19 03/28/19 Range/Units 06:19 08:13 12:07 RBC (4.2-5.4) M/uL Hgb (12.0-16.0) g/dL Hct (37-47) % MCHC (32-36) g/dL Lymph # (Auto) (1.2-3.4) K/uL [place] # (Auto) (0.11-0.59) K/uL PT (9.0-12.0) Seconds INR (0.9-1.1) Potassium 3.4 L (3.5-5.1) mmol/L Creatinine (0.6-1.2) mg/dl Glucose 114 H (70-99) mg/dl POC Glucose 137 H 195 H (70-99) Calcium 8.1 L (8.5-10.1) mg/dl Phosphorus 2.1 L (2.5-4.9) mg/dl Magnesium 1.7 L (1.8-2.4) mg/dl 03/28/19 03/28/19 03/29/19 Range/Units 17:13 20:38 04:52 RBC 2.97 L (4.2-5.4) M/uL Hgb 8.8 L (12.0-16.0) g/dL Hct 27.6 L (37-47) % MCHC 31.9 L (32-36) g/dL Lymph # (Auto) 0.91 L (1.2-3.4) K/uL [place] # (Auto) 0.63 H (0.11-0.59) K/uL PT (9.0-12.0) Seconds INR (0.9-1.1) Potassium (3.5-5.1) mmol/L Creatinine (0.6-1.2) mg/dl Glucose (70-99) mg/dl POC Glucose 126 H 164 H (70-99) Calcium (8.5-10.1) mg/dl Phosphorus (2.5-4.9) mg/dl Magnesium (1.8-2.4) mg/dl 03/29/19 03/29/19 Range/Units 04:52 04:52 RBC (4.2-5.4) M/uL Hgb (12.0-16.0) g/dL Hct (37-47) % MCHC (32-36) g/dL Lymph # (Auto) (1.2-3.4) K/uL [place] # (Auto) (0.11-0.59) K/uL PT 13.4 H (9.0-12.0) Seconds INR 1.3 H (0.9-1.1) Potassium (3.5-5.1) mmol/L Creatinine 0.59 L (0.6-1.2) mg/dl Glucose 114 H (70-99) mg/dl POC Glucose (70-99) Calcium 8.0 L (8.5-10.1) mg/dl Phosphorus (2.5-4.9) mg/dl Magnesium (1.8-2.4) mg/dl
[2019-03-29] MEDS: POTASSIUM CHLORIDE 10 MEQ TABCR PO SCH ×2 (07:38→21:29)
[2019-03-29] MEDS: CALCIUM 600MG + VIT D 400 IU TAB PO SCH ×2 (07:38→21:29)
[2019-03-29] MEDS: CYANOCOBALAMIN 500 MCG TABLET (VITAMIN B-12) PO SCH (07:39)
[2019-03-29] MEDS: TIMOLOL MALEATE 0.25% OP SOLN 5 ML BTL OP SCH (07:39)
[2019-03-29] MEDS: CEROVITE ADV FORMULA TAB PO SCH (07:39)
[2019-03-29] MEDS: POLYETHYLENE (MIRALAX) 17 GM PACK PO SCH (09:00)
[2019-03-29] MEDS: INSULIN ASPART 100 UNITS/ML 3 ML PEN SC SCH ×4 (09:03→21:31)
[2019-03-29] MEDS: ACETAMINOPHEN 325 MG TAB PO PRN (16:19)
[2019-03-29] MEDS: WARFARIN SOD 2.5 MG TAB PO SCH (16:20)
--- NOTE | 2019-03-29 19:30 | Hospitalist Progress Note ---
Date of Service March 29, 2019 Assessment & Plan (1) SBO (small bowel obstruction): Admitted with abdominal pain, distention and nausea CT of the abdomen and pelvis did show small bowel obstruction likely secondary to adhesions from past cholecystectomy She was kept n.p.o., received IV fluid and IV pain medications Surgery was consulted as KUB showed persistence of SBO + obstructive symptoms Pt is now s/p ex lap and lysis of adhesions (03/26/2019), tolerated procedure well (though became mildly hypotensive post-op) Started clear liquid diet 2 days ago, tolerated well. IV fluid discontinued today (03/29) For incr. pain dilaudid IV 0.25 mg q1h prn, tramadol prn - did not require any last 48 hrs (2) HTN (hypertension): Blood pressure seems to be under control (3) Diabetes: We will hold any oral diabetic medications put her on sliding scale insulin coverage while in the hospital Hgb A1c-6.7 on 03/23 Electrolyte abnormalities -secondary to poor/no oral intake -will improve when tolerates food -for now will correct hypomag-, hypokal-, hypophosphatemia (4) High cholesterol: Continue statin (5) Lumbar compression fracture: No acute symptoms History of pulmonary embolism on Coumadin will cont to monitor INR, therapeutic and had to be reversed for surgery (Received 2 units of fresh frozen plasma and 2.5 mg of intravenous vitamin K to reverse INR prior to surgery) Re-started Coumadin (03/27, 5mg then decreased dose to 2.5 mg 03/28), will cont., current INR 1.3 was on Lovenox subcu UA suggestive of infection Urine cultures grew 3 different organisms likely contaminant Discontinued antibiotic Subjective No acute events overnight. NG tube removed and she tolerates p.o. intake well. Denies any fevers, chills, chest pain, shortness of breath, abdominal pain, nausea or vomiting. Patient however developed left knee pain, new onset. She has history of right TKA, which does not bother her. Left knee is swollen, however patient states that this is chronic. She now developed difficulty with ambulation as she has trouble moving her knee due to pain, which is a new finding for her. Review of Systems Review of Systems: All systems reviewed and are unremarkable except as noted. Constitutional: no fever, no chills and no fatigue Respiratory: no cough, no dyspnea and no pain on inspiration Cardiovascular: no chest pain, no dyspnea on exertion, no palpitations and no edema Gastrointestinal: no abdominal pain, no nausea and no vomiting Physical Exam Constitutional: well developed and well nourished; no acute distress Eyes: PERRL, conjunctivae normal, anicteric sclerae ENMT: external ear and nose normal, oropharynx normal Neck: trachea midline, no thyromegaly Respiratory: normal respiratory effort, lungs clear to auscultation Auscultation: no crackles, no rhonchi and no wheezes Cardiovascular: Rate/Rhythm: regular rate and regular rhythm Heart Sounds: no murmur Chest (Breasts): Chest: normal inspection of chest Gastrointestinal (Abdomen): Inspection/Auscultation: normal bowel sounds; + abdomen abnormal to inspection (clean dry dressings placed vertically over abdomen ) and abdomen not distended Percussion/Palpation: + abdomen tender (mildly tender to palpation) and abdomen soft; no guarding and abdomen not rigid Musculoskeletal: Head/Neck/Chest: normocephalic, head atraumatic and neck supple Left knee edema, chronic per patient, no erythema. Range of motion limited due to pain. Right knee status post right TKA, with healed vertical scar, full range of motion, no edema or pain with movement. Skin: no rashes, warm and dry no jaundice Neurologic: PERRL, EOMI, accommodation nl, no face palsy, no dysarthria Psychiatric: A+Ox3, euthymic affect Speech: normal rate/rhythm/volume of speech Genitourinary: no CVA tenderness Lymphatic: no cervical or axillary lymphadenopathy + lymphedema Results & Data Vital Signs (Past 12 Hours) Vital Signs Temp Pulse Pulse Resp BP Pulse Ox 03/29/19 15:10 37.4 C 98 H 17 124/74 95 03/29/19 07:11 37.0 C 91 H 16 122/70 93 Laboratory Results 03/29/19 03/29/19 03/29/19 Range/Units 17:07 12:00 08:14 WBC (4.8-10.8) K/uL RBC (4.2-5.4) M/uL Hgb (12.0-16.0) g/dL Hct (37-47) % MCV (80-100) fL MCH (25-34) pg MCHC (32-36) g/dL RDW Std Deviation (36.4-46.3) fL RDW Coeff of [place] (11.5-14.5) % Plt Count (130-400) K/uL MPV (7.4-10.4) fL Immature Gran % (Auto) % Neut % (Auto) % Lymph % (Auto) % [place] % (Auto) % Eos % (Auto) % Baso % (Auto) % Immature Gran # (Auto) (0.00-0.02) K/uL Neut # (Auto) (1.4-6.5) K/uL Lymph # (Auto) (1.2-3.4) K/uL [place] # (Auto) (0.11-0.59) K/uL Eos # (Auto) (0-0.5) K/uL Baso # (Auto) (0-0.2) K/uL PT (9.0-12.0) Seconds INR (0.9-1.1) Sodium (136-145) mmol/L Potassium (3.5-5.1) mmol/L Chloride (98-107) mmol/L Carbon Dioxide (21-32) mmol/L Anion Gap (3-11) BUN (7-18) mg/dl Creatinine (0.6-1.2) mg/dl Est Cr Clr Drug Dosing ml/min Est GFR ( Amer) Est GFR (Non-Af Amer) BUN/Creatinine Ratio (10-20) Glucose (70-99) mg/dl POC Glucose 151 H 149 H 131 H (70-99) Calcium (8.5-10.1) mg/dl 03/29/19 03/29/19 03/29/19 Range/Units 04:52 04:52 04:52 WBC 7.09 (4.8-10.8) K/uL RBC 2.97 L (4.2-5.4) M/uL Hgb 8.8 L (12.0-16.0) g/dL Hct 27.6 L (37-47) % MCV 92.9 (80-100) fL MCH 29.6 (25-34) pg MCHC 31.9 L (32-36) g/dL RDW Std Deviation 44.4 (36.4-46.3) fL RDW Coeff of [place] 13.0 (11.5-14.5) % Plt Count 149 (130-400) K/uL MPV 9.7 (7.4-10.4) fL Immature Gran % (Auto) 0.1 % Neut % (Auto) 75.7 % Lymph % (Auto) 12.8 % [place] % (Auto) 8.9 % Eos % (Auto) 2.4 % Baso % (Auto) 0.1 % Immature Gran # (Auto) 0.01 (0.00-0.02) K/uL Neut # (Auto) 5.36 (1.4-6.5) K/uL Lymph # (Auto) 0.91 L (1.2-3.4) K/uL [place] # (Auto) 0.63 H (0.11-0.59) K/uL Eos # (Auto) 0.17 (0-0.5) K/uL Baso # (Auto) 0.01 (0-0.2) K/uL PT 13.4 H (9.0-12.0) Seconds INR 1.3 H (0.9-1.1) Sodium 140 (136-145) mmol/L Potassium 3.8 (3.5-5.1) mmol/L Chloride 106 (98-107) mmol/L Carbon Dioxide 29 (21-32) mmol/L Anion Gap 5.0 (3-11) BUN 9 (7-18) mg/dl Creatinine 0.59 L (0.6-1.2) mg/dl Est Cr Clr Drug Dosing 55.2 ml/min Est GFR ( Amer) 96.9 Est GFR (Non-Af Amer) 83.6 BUN/Creatinine Ratio 14.5 (10-20) Glucose 114 H (70-99) mg/dl POC Glucose (70-99) Calcium 8.0 L (8.5-10.1) mg/dl 03/28/19 Range/Units 20:38 WBC (4.8-10.8) K/uL RBC (4.2-5.4) M/uL Hgb (12.0-16.0) g/dL Hct (37-47) % MCV (80-100) fL MCH (25-34) pg MCHC (32-36) g/dL RDW Std Deviation (36.4-46.3) fL RDW Coeff of [place] (11.5-14.5) % Plt Count (130-400) K/uL MPV (7.4-10.4) fL Immature Gran % (Auto) % Neut % (Auto) % Lymph % (Auto) % [place] % (Auto) % Eos % (Auto) % Baso % (Auto) % Immature Gran # (Auto) (0.00-0.02) K/uL Neut # (Auto) (1.4-6.5) K/uL Lymph # (Auto) (1.2-3.4) K/uL [place] # (Auto) (0.11-0.59) K/uL Eos # (Auto) (0-0.5) K/uL Baso # (Auto) (0-0.2) K/uL PT (9.0-12.0) Seconds INR (0.9-1.1) Sodium (136-145) mmol/L Potassium (3.5-5.1) mmol/L Chloride (98-107) mmol/L Carbon Dioxide (21-32) mmol/L Anion Gap (3-11) BUN (7-18) mg/dl Creatinine (0.6-1.2) mg/dl Est Cr Clr Drug Dosing ml/min Est GFR ( Amer) Est GFR (Non-Af Amer) BUN/Creatinine Ratio (10-20) Glucose (70-99) mg/dl POC Glucose 164 H (70-99) Calcium (8.5-10.1) mg/dl Medications Administered Current Inpatient Medications Acetaminophen (Tylenol) 650 mg PO Q4H PRN PRN Reason: pain/fever Stop: 04/21/19 07:47 Last Admin: 03/29/19 16:19 Dose: 650 mg Documented by: Bimatoprost (Lumigan 0.01%) 1 drops OP PM MATTHEW Stop: 04/23/19 20:59 Last Admin: 03/28/19 21:44 Dose: 1 drops Documented by: Cyanocobalamin (Vitamin B-12) 500 mcg PO DAILY MATTHEW Stop: 04/26/19 08:59 Last Admin: 03/29/19 07:39 Dose: 500 mcg Documented by: Dextrose (Dextrose 50%) 25 - 50 ml IV UD PRN; Protocol PRN Reason: Hypoglycemia Protocol Stop: 04/21/19 13:29 Furosemide (Lasix) 20 mg PO DAILY MATTHEW Stop: 04/21/19 08:59 Last Admin: 03/22/19 08:58 Dose: Not Given Documented by: Glucagon (Glucagen) 1 mg IM UD PRN; Protocol PRN Reason: Hypoglycemia Protocol Stop: 04/21/19 13:29 Glucose (Glucose 40%) 15 - 30 gm PO UD PRN; Protocol PRN Reason: Hypoglycemia Protocol Stop: 04/21/19 13:29 Glucose (Dex4 Glucose) 4 - 8 tabs PO UD PRN; Protocol PRN Reason: Hypoglycemia Protocol Stop: 04/21/19 13:29 Hydromorphone HCl (Dilaudid) 0.25 mg IV Q1H PRN PRN Reason: Pain Stop: 04/10/19 10:46 Last Admin: 03/27/19 11:00 Dose: 0.25 mg Documented by: Cefazolin Sodium 1,000 mg/ (Syringe) 7.5 mls @ 2.5 mls/min IV Q8H MATTHEW Stop: 03/30/19 09:29 Last Admin: 03/29/19 17:25 Dose: 2.5 mls/min Documented by: Insulin Aspart (Novolog Flexpen) 0 units SC ACHS MATTHEW Stop: 04/27/19 07:29 Last Admin: 03/29/19 18:00 Dose: 3 units Documented by: Lisinopril (Zestril) 2.5 mg PO DAILY MATTHEW Stop: 04/21/19 08:59 Last Admin: 03/26/19 08:06 Dose: Not Given Documented by: Metformin HCl (Glucophage Er) 1,000 mg PO QDD MATTHEW Stop: 04/25/19 16:29 Metformin HCl (Glucophage Er) 500 mg PO QDB MATTHEW Stop: 04/26/19 07:29 Miscellaneous (Carbohydrates For Hypoglycemia) 15 - 30 gm PO UD PRN PRN Reason: Hypoglycemia Treatment Stop: 04/21/19 13:29 Last Admin: 03/27/19 17:59 Dose: 15 gm Documented by: Multivitamins/Minerals (Caltrate Plus) 1 tab PO BID MATTHEW Stop: 04/25/19 20:59 Last Admin: 03/29/19 07:38 Dose: 1 tab Documented by: Multivitamins/Minerals (Multivitamin W/ Minerals Tab) 1 tab PO DAILY MATTHEW Stop: 04/26/19 08:59 Last Admin: 03/29/19 07:39 Dose: 1 tab Documented by: Ondansetron HCl (Zofran) 4 mg IV Q6H PRN PRN Reason: Nausea Stop: 04/21/19 07:47 Last Admin: 03/25/19 20:50 Dose: 4 mg Documented by: Polyethylene Glycol (Miralax Powder Packet) 17 gm PO DAILY MATTHEW Stop: 04/28/19 08:59 Last Admin: 03/29/19 09:00 Dose: 17 gm Documented by: Potassium Chloride (Klor-Con M10) 10 meq PO BID MATTHEW Stop: 04/27/19 08:59 Last Admin: 03/29/19 07:38 Dose: 10 meq Documented by: Simvastatin (Zocor) 10 mg PO PM MATTHEW Stop: 04/21/19 20:59 Last Admin: 03/28/19 21:45 Dose: 10 mg Documented by: Timolol Maleate (Timoptic 0.25% Oph) 1 drops OP QAM MATTHEW Stop: 04/23/19 12:14 Last Admin: 03/29/19 07:39 Dose: 1 drops Documented by: Tramadol HCl (Ultram) 25 mg PO Q4H PRN PRN Reason: Pain Stop: 04/25/19 20:04 Warfarin Sodium (Coumadin) 2.5 mg PO DAILY@1600 [facility] Stop: 04/27/19 15:59 Last Admin: 03/29/19 16:20 Dose: 2.5 mg Documented by:
[2019-03-29] MEDS: SIMVASTATIN 10 MG TAB PO SCH (21:29)
[2019-03-29] MEDS: BIMATOPROST 0.01% OP SOLN 2.5 ML BTL OP SCH (21:29)
--- NOTE | 2019-03-29 21:46 | XRay Report ---
XR knee LT 1 or 2V routine CLINICAL HISTORY: left knee pain w/ movmt, new onset pain COMPARISON: None. DISCUSSION: Mild degenerative change all major joint compartments. No evidence for fracture or disloc ation. Mild soft tissue edema. IMPRESSION: Mild degenerative change. No acute process. The above report was generated using voice recognition software. It may contain grammatical, syntax or spelling errors. Electronically signed by: Jase Wells M.D. 03/29/2019 9:44 PM
[2019-03-30] MEDS: CEFAZOLIN 1,000 MG in SYRINGE 0 ML IV SCH (02:22)
[2019-03-30 05:23] LABS: Basophils # (auto) 0.01 K/uL (0-0.2); Basophils % (auto) 0.1 %; Eosinophils # (auto) 0.28 K/uL (0-0.5); Eosinophils % (auto) 3.7 %; Hematocrit (blood only) 27.2 % (37-47); Immature Granulocytes # (auto) 0.03 K/uL (0.00-0.02); Immature Granulocytes % (auto) 0.4 %; Lymphocytes # (auto) 1.22 K/uL (1.2-3.4); Lymphocytes % (auto) 16.2 %; Mean Corpuscular Hemoglobin 29.8 pg (25-34); Mean Corpuscular Hgb Conc 33.1 g/dL (32-36); Mean Corpuscular Volume 90.1 fL (80-100); Mean Platelet Volume 9.2 fL (7.4-10.4); Monocytes % (auto) 9.3 %; Neutrophils # (auto) 5.27 K/uL (1.4-6.5); Neutrophils % (auto) 70.3 %; Platelet Count 145 K/uL (130-400); RDW Coefficient of Variation 12.8 % (11.5-14.5); RDW Standard Deviation 42.3 fL (36.4-46.3); Red Blood Count 3.02 M/uL (4.2-5.4); White Blood Count 7.51 K/uL (4.8-10.8)
[2019-03-30 05:35] LABS: INR 1.3 (0.9-1.1); Prothrombin Time 13.2 Seconds (9.0-12.0)
[2019-03-30 05:49] LABS: BUN Creatinine Ratio 12.3 (10-20); Calcium 8.5 mg/dl (8.5-10.1); Creatinine Clr Calc Pharmacy 41.8 ml/min; Est GFR (African American) 80.3; Est GFR (Non-African American) 69.3; Magnesium 1.4 mg/dl (1.8-2.4)
[2019-03-30 05:50] LABS: Phosphorus 2.2 mg/dl (2.5-4.9)
--- NOTE | 2019-03-30 07:06 | Progress Note ---
Date of Service March 30, 2019 Assessment & Plan (1) SBO (small bowel obstruction): vitals stable- arleen some food "Not ready to go home yet "- lives alone abd- mild distention supportive care , will need visiting nurse Results & Data Vital Signs (Past 12 Hours) Vital Signs Temp Pulse Resp BP Pulse Ox 03/29/19 23:08 37.1 C 82 16 118/67 95 PG Care Time/CCT Total # of Minutes Spent Total Time Spent with Patient: Total time spent is greater than 50% in coordination of care (as documented) at patient's floor/unit and/or counseling patient:
--- NOTE | 2019-03-30 07:12 | Hospitalist Progress Note ---
Date of Service March 30, 2019 Assessment & Plan (1) SBO (small bowel obstruction): Admitted with abdominal pain, distention and nausea CT of the abdomen and pelvis did show small bowel obstruction likely secondary to adhesions from past cholecystectomy She was kept n.p.o., received IV fluid and IV pain medications Surgery was consulted as KUB showed persistence of SBO + obstructive symptoms Pt is now s/p ex lap and lysis of adhesions (03/26/2019), tolerated procedure well (though became mildly hypotensive post-op) Tolerates PO intake well, had BM this AM (03/30) For incr. pain dilaudid IV 0.25 mg q1h prn, tramadol prn - did not require any for at least last 48 hrs Anemia normocytic, likely multifact. etiology besides surg. blood loss Hgb stable at ~9 will cont. to monitor (2) HTN (hypertension): Blood pressure seems to be under control (3) Diabetes: We will hold any oral diabetic medications put her on sliding scale insulin coverage while in the hospital Hgb A1c-6.7 on 03/23 Electrolyte abnormalities -secondary to poor/no oral intake -will improve when tolerates food -will correct hypomag-, hypokal-, hypophosphatemia as needed (4) High cholesterol: Continue statin (5) Lumbar compression fracture: No acute symptoms History of pulmonary embolism on Coumadin will cont to monitor INR, therapeutic and had to be reversed for surgery (Received 2 units of fresh frozen plasma and 2.5 mg of intravenous vitamin K to reverse INR prior to surgery) Re-started Coumadin (03/27, 5mg then decreased dose to 2.5 mg 03/28), will cont., current INR 1.3 was on Lovenox subcu UA suggestive of infection Urine cultures grew 3 different organisms likely contaminant Discontinued antibiotic Subjective No acute events overnight. Tolerates p.o. intake well (had pancakes for breakfast). Had BM this AM. Denies any fevers, chills, chest pain, shortness of breath, abdominal pain, nausea or vomiting. Yesterday patient developed left knee pain, new onset, however that has now resolved. She is able to move her knee, without any pain or difficulty. X-ray of left knee unremarkable. Review of Systems Review of Systems: All systems reviewed and are unremarkable except as noted. Constitutional: no fever, no chills and no fatigue Respiratory: no cough, no chest congestion and no dyspnea Cardiovascular: no chest pain, no palpitations and no edema Gastrointestinal: no abdominal pain, no nausea and no vomiting Musculoskeletal: no joint pain, no swelling and no stiffness Physical Exam Constitutional: well developed and well nourished; no acute distress Eyes: PERRL, conjunctivae normal, anicteric sclerae ENMT: external ear and nose normal, oropharynx normal Neck: trachea midline, no thyromegaly Respiratory: normal respiratory effort, lungs clear to auscultation Auscultation: no crackles, no rhonchi and no wheezes Cardiovascular: RRR, no murmur, no edema Rate/Rhythm: regular rate and regular rhythm Heart Sounds: no murmur Extremities: no edema Chest (Breasts): Chest: normal inspection of chest Gastrointestinal (Abdomen): Inspection/Auscultation: normal bowel sounds; + abdomen abnormal to inspection (clean dry dressings placed vertically over abdomen ) and abdomen not distended Percussion/Palpation: abdomen soft; abdomen nontender, no guarding and abdomen not rigid Musculoskeletal: Head/Neck/Chest: normocephalic, head atraumatic and neck supple Extremities: extremities normal to inspection (Full range of motion of left and right knee, no pain elicited with movement) Skin: no rashes, warm and dry no jaundice Neurologic: PERRL, EOMI, accommodation nl, no face palsy, no dysarthria Psychiatric: A+Ox3, euthymic affect Speech: normal rate/rhythm/volume of speech Genitourinary: no CVA tenderness Lymphatic: no cervical or axillary lymphadenopathy + lymphedema Results & Data Vital Signs (Past 12 Hours) Vital Signs Temp Pulse Resp BP Pulse Ox 03/29/19 23:08 37.1 C 82 16 118/67 95 Laboratory Results 03/30/19 03/30/19 03/30/19 Range/Units 05:04 05:04 05:04 WBC 7.51 (4.8-10.8) K/uL RBC 3.02 L (4.2-5.4) M/uL Hgb 9.0 L (12.0-16.0) g/dL Hct 27.2 L (37-47) % MCV 90.1 (80-100) fL MCH 29.8 (25-34) pg MCHC 33.1 (32-36) g/dL RDW Std Deviation 42.3 (36.4-46.3) fL RDW Coeff of [place] 12.8 (11.5-14.5) % Plt Count 145 (130-400) K/uL MPV 9.2 (7.4-10.4) fL Immature Gran % (Auto) 0.4 % Neut % (Auto) 70.3 % Lymph % (Auto) 16.2 % [place] % (Auto) 9.3 % Eos % (Auto) 3.7 % Baso % (Auto) 0.1 % Immature Gran # (Auto) 0.03 H (0.00-0.02) K/uL Neut # (Auto) 5.27 (1.4-6.5) K/uL Lymph # (Auto) 1.22 (1.2-3.4) K/uL [place] # (Auto) 0.70 H (0.11-0.59) K/uL Eos # (Auto) 0.28 (0-0.5) K/uL Baso # (Auto) 0.01 (0-0.2) K/uL PT 13.2 H (9.0-12.0) Seconds INR 1.3 H (0.9-1.1) Sodium 139 (136-145) mmol/L Potassium 4.0 (3.5-5.1) mmol/L Chloride 104 (98-107) mmol/L Carbon Dioxide 31 (21-32) mmol/L Anion Gap 4.0 (3-11) BUN 10 (7-18) mg/dl Creatinine 0.78 (0.6-1.2) mg/dl Est Cr Clr Drug Dosing 41.8 ml/min Est GFR ( Amer) 80.3 Est GFR (Non-Af Amer) 69.3 BUN/Creatinine Ratio 12.3 (10-20) Glucose 116 H (70-99) mg/dl POC Glucose (70-99) Calcium 8.5 (8.5-10.1) mg/dl Phosphorus 2.2 L (2.5-4.9) mg/dl Magnesium 1.4 L (1.8-2.4) mg/dl 03/29/19 03/29/19 03/29/19 Range/Units 20:46 17:07 12:00 WBC (4.8-10.8) K/uL RBC (4.2-5.4) M/uL Hgb (12.0-16.0) g/dL Hct (37-47) % MCV (80-100) fL MCH (25-34) pg MCHC (32-36) g/dL RDW Std Deviation (36.4-46.3) fL RDW Coeff of [place] (11.5-14.5) % Plt Count (130-400) K/uL MPV (7.4-10.4) fL Immature Gran % (Auto) % Neut % (Auto) % Lymph % (Auto) % [place] % (Auto) % Eos % (Auto) % Baso % (Auto) % Immature Gran # (Auto) (0.00-0.02) K/uL Neut # (Auto) (1.4-6.5) K/uL Lymph # (Auto) (1.2-3.4) K/uL [place] # (Auto) (0.11-0.59) K/uL Eos # (Auto) (0-0.5) K/uL Baso # (Auto) (0-0.2) K/uL PT (9.0-12.0) Seconds INR (0.9-1.1) Sodium (136-145) mmol/L Potassium (3.5-5.1) mmol/L Chloride (98-107) mmol/L Carbon Dioxide (21-32) mmol/L Anion Gap (3-11) BUN (7-18) mg/dl Creatinine (0.6-1.2) mg/dl Est Cr Clr Drug Dosing ml/min Est GFR ( Amer) Est GFR (Non-Af Amer) BUN/Creatinine Ratio (10-20) Glucose (70-99) mg/dl POC Glucose 141 H 151 H 149 H (70-99) Calcium (8.5-10.1) mg/dl Phosphorus (2.5-4.9) mg/dl Magnesium (1.8-2.4) mg/dl 03/29/19 Range/Units 08:14 WBC (4.8-10.8) K/uL RBC (4.2-5.4) M/uL Hgb (12.0-16.0) g/dL Hct (37-47) % MCV (80-100) fL MCH (25-34) pg MCHC (32-36) g/dL RDW Std Deviation (36.4-46.3) fL RDW Coeff of [place] (11.5-14.5) % Plt Count (130-400) K/uL MPV (7.4-10.4) fL Immature Gran % (Auto) % Neut % (Auto) % Lymph % (Auto) % [place] % (Auto) % Eos % (Auto) % Baso % (Auto) % Immature Gran # (Auto) (0.00-0.02) K/uL Neut # (Auto) (1.4-6.5) K/uL Lymph # (Auto) (1.2-3.4) K/uL [place] # (Auto) (0.11-0.59) K/uL Eos # (Auto) (0-0.5) K/uL Baso # (Auto) (0-0.2) K/uL PT (9.0-12.0) Seconds INR (0.9-1.1) Sodium (136-145) mmol/L Potassium (3.5-5.1) mmol/L Chloride (98-107) mmol/L Carbon Dioxide (21-32) mmol/L Anion Gap (3-11) BUN (7-18) mg/dl Creatinine (0.6-1.2) mg/dl Est Cr Clr Drug Dosing ml/min Est GFR ( Amer) Est GFR (Non-Af Amer) BUN/Creatinine Ratio (10-20) Glucose (70-99) mg/dl POC Glucose 131 H (70-99) Calcium (8.5-10.1) mg/dl Phosphorus (2.5-4.9) mg/dl Magnesium (1.8-2.4) mg/dl Medications Administered Current Inpatient Medications Acetaminophen (Tylenol) 650 mg PO Q4H PRN PRN Reason: pain/fever Stop: 04/21/19 07:47 Last Admin: 03/29/19 16:19 Dose: 650 mg Documented by: Bimatoprost (Lumigan 0.01%) 1 drops OP PM MATTHEW Stop: 04/23/19 20:59 Last Admin: 03/29/19 21:29 Dose: 1 drops Documented by: Cyanocobalamin (Vitamin B-12) 500 mcg PO DAILY MATTHEW Stop: 04/26/19 08:59 Last Admin: 03/29/19 07:39 Dose: 500 mcg Documented by: Dextrose (Dextrose 50%) 25 - 50 ml IV UD PRN; Protocol PRN Reason: Hypoglycemia Protocol Stop: 04/21/19 13:29 Furosemide (Lasix) 20 mg PO DAILY MATTHEW Stop: 04/21/19 08:59 Last Admin: 03/22/19 08:58 Dose: Not Given Documented by: Glucagon (Glucagen) 1 mg IM UD PRN; Protocol PRN Reason: Hypoglycemia Protocol Stop: 04/21/19 13:29 Glucose (Glucose 40%) 15 - 30 gm PO UD PRN; Protocol PRN Reason: Hypoglycemia Protocol Stop: 04/21/19 13:29 Glucose (Dex4 Glucose) 4 - 8 tabs PO UD PRN; Protocol PRN Reason: Hypoglycemia Protocol Stop: 04/21/19 13:29 Hydromorphone HCl (Dilaudid) 0.25 mg IV Q1H PRN PRN Reason: Pain Stop: 04/10/19 10:46 Last Admin: 03/27/19 11:00 Dose: 0.25 mg Documented by: Cefazolin Sodium 1,000 mg/ (Syringe) 7.5 mls @ 2.5 mls/min IV Q8H MATTHEW Stop: 03/30/19 09:29 Last Admin: 03/30/19 02:22 Dose: 2.5 mls/min Documented by: Magnesium Sulfate/Dextrose (Magnesium Sulfate / D5w) 1 gm in 100 mls @ 100 mls/hr IV Q1H STA Stop: 03/30/19 08:11 Insulin Aspart (Novolog Flexpen) 0 units SC ACHS MATTHEW Stop: 04/27/19 07:29 Last Admin: 03/29/19 21:31 Dose: 1 units Documented by: Lisinopril (Zestril) 2.5 mg PO DAILY [facility] Stop: 04/21/19 08:59 Last Admin: 03/26/19 08:06 Dose: Not Given Documented by: Metformin HCl (Glucophage Er) 1,000 mg PO QDD MATTHEW Stop: 04/25/19 16:29 Metformin HCl (Glucophage Er) 500 mg PO QDB MATTHEW Stop: 04/26/19 07:29 Miscellaneous (Carbohydrates For Hypoglycemia) 15 - 30 gm PO UD PRN PRN Reason: Hypoglycemia Treatment Stop: 04/21/19 13:29 Last Admin: 03/27/19 17:59 Dose: 15 gm Documented by: Multivitamins/Minerals (Caltrate Plus) 1 tab PO BID MATTHEW Stop: 04/25/19 20:59 Last Admin: 03/29/19 21:29 Dose: 1 tab Documented by: Multivitamins/Minerals (Multivitamin W/ Minerals Tab) 1 tab PO DAILY MATTHEW Stop: 04/26/19 08:59 Last Admin: 03/29/19 07:39 Dose: 1 tab Documented by: Ondansetron HCl (Zofran) 4 mg IV Q6H PRN PRN Reason: Nausea Stop: 04/21/19 07:47 Last Admin: 03/25/19 20:50 Dose: 4 mg Documented by: Polyethylene Glycol (Miralax Powder Packet) 17 gm PO DAILY MATTHEW Stop: 04/28/19 08:59 Last Admin: 03/29/19 09:00 Dose: 17 gm Documented by: Potassium Chloride (Klor-Con M10) 10 meq PO BID MATTHEW Stop: 04/27/19 08:59 Last Admin: 03/29/19 21:29 Dose: 10 meq Documented by: Simvastatin (Zocor) 10 mg PO PM MATTHEW Stop: 04/21/19 20:59 Last Admin: 03/29/19 21:29 Dose: 10 mg Documented by: Timolol Maleate (Timoptic 0.25% Oph) 1 drops OP QAM MATTHEW Stop: 04/23/19 12:14 Last Admin: 03/29/19 07:39 Dose: 1 drops Documented by: Tramadol HCl (Ultram) 25 mg PO Q4H PRN PRN Reason: Pain Stop: 04/25/19 20:04 Warfarin Sodium (Coumadin) 2.5 mg PO DAILY@1600 MATTHEW Stop: 04/27/19 15:59 Last Admin: 03/29/19 16:20 Dose: 2.5 mg Documented by:
[2019-03-30] MEDS ORDERED: SODIUM PHOSPHATE 15 MMOL in SODIUM CHLORIDE 0.9% 250 ML IV ONE (08:00)
[2019-03-30] MEDS: MAGNESIUM SULFATE / D5W 1 GM/100 ML BAG IV SCH ×2 (08:02→09:03)
[2019-03-30] MEDS: TIMOLOL MALEATE 0.25% OP SOLN 5 ML BTL OP SCH (08:05)
[2019-03-30] MEDS: CYANOCOBALAMIN 500 MCG TABLET (VITAMIN B-12) PO SCH (08:05)
[2019-03-30] MEDS: CALCIUM 600MG + VIT D 400 IU TAB PO SCH ×2 (08:05→21:05)
[2019-03-30] MEDS: POLYETHYLENE (MIRALAX) 17 GM PACK PO SCH (08:05)
[2019-03-30] MEDS: CEROVITE ADV FORMULA TAB PO SCH (08:05)
[2019-03-30] MEDS: POTASSIUM CHLORIDE 10 MEQ TABCR PO SCH ×2 (08:05→21:06)
[2019-03-30] MEDS ORDERED: SODIUM PHOSPHATE 3 MMOL/1 ML INFUSION IV SCH (08:15)
[2019-03-30 08:40] LABS: Appearance Urine Clear (Clear); Bacteria Urine Automated Negative (Negative); Bilirubin Urine Negative (Negative); Blood Urine Negative (Negative); Cast Urine Automated 0 /lpf (0-5); Color Urine Yellow; Glucose Urine UA Negative (Negative); Ketones Urine Trace (Negative); Leukocyte Esterase Urine Trace (Negative); Nitrite Urine Negative (Negative); RBC Urine Automated 0-4 /hpf (0-4); Specific Gravity Urine 1.015 (1.000-1.030); Urobilinogen Urine Negative (Negative); pH Urine 7.5 (4.5-7.5)
[2019-03-30] MEDS: INSULIN ASPART 100 UNITS/ML 3 ML PEN SC SCH ×4 (08:45→21:07)
[2019-03-30 08:50] LABS: Protein Urine Negative (Negative); Sulfosalicylic Acid Urine Negative (Negative)
[2019-03-30] MEDS: WARFARIN SOD 4 MG TAB PO SCH (16:43)
[2019-03-30] MEDS: BIMATOPROST 0.01% OP SOLN 2.5 ML BTL OP SCH (21:06)
[2019-03-30] MEDS: SIMVASTATIN 10 MG TAB PO SCH (21:07)
[2019-03-31 05:14] LABS: Basophils # (auto) 0.02 K/uL (0-0.2); Basophils % (auto) 0.3 %; Eosinophils % (auto) 4.8 %; Hematocrit (blood only) 26.8 % (37-47); Hemoglobin 8.8 g/dL (12.0-16.0); Immature Granulocytes # (auto) 0.01 K/uL (0.00-0.02); Immature Granulocytes % (auto) 0.2 %; Lymphocytes # (auto) 1.51 K/uL (1.2-3.4); Lymphocytes % (auto) 24.2 %; Mean Corpuscular Hemoglobin 29.7 pg (25-34); Mean Corpuscular Hgb Conc 32.8 g/dL (32-36); Mean Corpuscular Volume 90.5 fL (80-100); Mean Platelet Volume 9.3 fL (7.4-10.4); Monocytes # (auto) 0.63 K/uL (0.11-0.59); Monocytes % (auto) 10.1 %; Neutrophils # (auto) 3.78 K/uL (1.4-6.5); Neutrophils % (auto) 60.4 %; Platelet Count 161 K/uL (130-400); RDW Coefficient of Variation 12.8 % (11.5-14.5); RDW Standard Deviation 42.1 fL (36.4-46.3); Red Blood Count 2.96 M/uL (4.2-5.4); White Blood Count 6.25 K/uL (4.8-10.8)
[2019-03-31 05:23] LABS: INR 1.3 (0.9-1.1); Prothrombin Time 12.8 Seconds (9.0-12.0)
[2019-03-31 05:46] LABS: BUN Creatinine Ratio 12.6 (10-20); Calcium 8.4 mg/dl (8.5-10.1); Creatinine Clr Calc Pharmacy 50.9 ml/min; Est GFR (African American) 94.3; Est GFR (Non-African American) 81.4; Magnesium 1.6 mg/dl (1.8-2.4); Potassium 4.2 mmol/L (3.5-5.1)
[2019-03-31 05:49] LABS: Phosphorus 3.2 mg/dl (2.5-4.9)
--- NOTE | 2019-03-31 06:41 | Progress Note ---
Date of Service March 31, 2019 Assessment & Plan (1) SBO (small bowel obstruction): very mild confusion when I entered room- awake, alert has good bowel sounds- says bowels are moving 84 yo woman, lives alone- will need someone to check on her case mgt following Results & Data Vital Signs (Past 12 Hours) Vital Signs Temp Pulse Resp BP Pulse Ox 03/30/19 23:07 37.1 C 88 16 108/62 94 PG Care Time/CCT Total # of Minutes Spent Total Time Spent with Patient: Total time spent is greater than 50% in coordination of care (as documented) at patient's floor/unit and/or counseling patient:
--- NOTE | 2019-03-31 08:06 | Hospitalist Progress Note ---
Date of Service March 31, 2019 Assessment & Plan (1) SBO (small bowel obstruction): Admitted with abdominal pain, distention and nausea CT of the abdomen and pelvis did show small bowel obstruction likely secondary to adhesions from past cholecystectomy She was kept n.p.o., received IV fluid and IV pain medications Surgery was consulted as KUB showed persistence of SBO + obstructive symptoms Pt is now s/p ex lap and lysis of adhesions (03/26/2019), tolerated procedure well (though became mildly hypotensive post-op) Tolerates PO intake well, had BM on(03/30 and 03/31) For incr. pain dilaudid IV 0.25 mg q1h prn, tramadol prn - did not require any for past couple of days Anemia normocytic, likely multifact. etiology besides surg. blood loss Hgb stable at ~9 will cont. to monitor (2) HTN (hypertension): Blood pressure seems to be under control (3) Diabetes: We will hold any oral diabetic medications put her on sliding scale insulin coverage while in the hospital Hgb A1c-6.7 on 03/23 Electrolyte abnormalities -secondary to poor/no oral intake -will improve when tolerates food -will correct hypomag-, hypokal-, hypophosphatemia as needed (4) High cholesterol: Continue statin (5) Lumbar compression fracture: No acute symptoms History of pulmonary embolism on Coumadin will cont to monitor INR, therapeutic and had to be reversed for surgery (Received 2 units of fresh frozen plasma and 2.5 mg of intravenous vitamin K to reverse INR prior to surgery) Re-started Coumadin (03/27, 5mg then decreased dose to 2.5 mg 03/28), will cont., current INR 1.3 was on Lovenox subcu UA suggestive of infection Urine cultures grew 3 different organisms likely contaminant Discontinued antibiotic Subjective No acute events overnight. Tolerates p.o. intake well. Moves bowels. Denies any fevers, chills, chest pain, shortness of breath, abdominal pain, nausea or vomiting. Discussed that she may be discharged tomorrow, as she is all cleared from surgical perspective. We may need to arrange home health as needed, will discuss with case management. Review of Systems Review of Systems: All systems reviewed and are unremarkable except as noted. Constitutional: no fever, no chills and no fatigue Respiratory: no cough and no dyspnea Cardiovascular: no chest pain, no dyspnea on exertion, no palpitations and no edema Gastrointestinal: no abdominal pain, no nausea, no vomiting, no dysphagia and no constipation Physical Exam Constitutional: well developed and well nourished; no acute distress Eyes: PERRL, conjunctivae normal, anicteric sclerae ENMT: external ear and nose normal, oropharynx normal Neck: trachea midline, no thyromegaly Respiratory: normal respiratory effort, lungs clear to auscultation Auscultation: no crackles, no rhonchi and no wheezes Cardiovascular: RRR, no murmur, no edema Rate/Rhythm: regular rate and regular rhythm Heart Sounds: no murmur Extremities: no edema Chest (Breasts): Chest: normal inspection of chest Gastrointestinal (Abdomen): Inspection/Auscultation: normal bowel sounds; + abdomen abnormal to inspection (clean dry dressings placed vertically over abdomen ) and abdomen not distended Percussion/Palpation: abdomen soft; abdomen nontender, no guarding and abdomen not rigid Musculoskeletal: Head/Neck/Chest: normocephalic, head atraumatic and neck supple Extremities: extremities normal to inspection (Full range of motion of left and right knee, no pain elicited with movement) Skin: no rashes, warm and dry no jaundice Neurologic: PERRL, EOMI, accommodation nl, no face palsy, no dysarthria Psychiatric: A+Ox3, euthymic affect Speech: normal rate/rhythm/volume of speech Genitourinary: no CVA tenderness Lymphatic: no cervical or axillary lymphadenopathy + lymphedema Results & Data Vital Signs (Past 12 Hours) Vital Signs Temp Pulse Resp BP Pulse Ox 03/31/19 07:15 37.1 C 82 15 133/73 15 L 03/30/19 23:07 37.1 C 88 16 108/62 94 Laboratory Results 03/31/19 03/31/19 03/31/19 Range/Units 04:46 04:46 04:46 WBC 6.25 (4.8-10.8) K/uL RBC 2.96 L (4.2-5.4) M/uL Hgb 8.8 L (12.0-16.0) g/dL Hct 26.8 L (37-47) % MCV 90.5 (80-100) fL MCH 29.7 (25-34) pg MCHC 32.8 (32-36) g/dL RDW Std Deviation 42.1 (36.4-46.3) fL RDW Coeff of [place] 12.8 (11.5-14.5) % Plt Count 161 (130-400) K/uL MPV 9.3 (7.4-10.4) fL Immature Gran % (Auto) 0.2 % Neut % (Auto) 60.4 % Lymph % (Auto) 24.2 % [place] % (Auto) 10.1 % Eos % (Auto) 4.8 % Baso % (Auto) 0.3 % Immature Gran # (Auto) 0.01 (0.00-0.02) K/uL Neut # (Auto) 3.78 (1.4-6.5) K/uL Lymph # (Auto) 1.51 (1.2-3.4) K/uL [place] # (Auto) 0.63 H (0.11-0.59) K/uL Eos # (Auto) 0.30 (0-0.5) K/uL Baso # (Auto) 0.02 (0-0.2) K/uL PT 12.8 H (9.0-12.0) Seconds INR 1.3 H (0.9-1.1) Sodium 139 (136-145) mmol/L Potassium 4.2 (3.5-5.1) mmol/L Chloride 103 (98-107) mmol/L Carbon Dioxide 32 (21-32) mmol/L Anion Gap 4.0 (3-11) BUN 8 (7-18) mg/dl Creatinine 0.64 (0.6-1.2) mg/dl Est Cr Clr Drug Dosing 50.9 ml/min Est GFR ( Amer) 94.3 Est GFR (Non-Af Amer) 81.4 BUN/Creatinine Ratio 12.6 (10-20) Glucose 121 H (70-99) mg/dl POC Glucose (70-99) Calcium 8.4 L (8.5-10.1) mg/dl Phosphorus 3.2 D (2.5-4.9) mg/dl Magnesium 1.6 L (1.8-2.4) mg/dl Urine Color Urine Appearance (Clear) Urine pH (4.5-7.5) Ur Specific [place] (1.000-1.030) Urine Protein (Negative) Urine Glucose (UA) (Negative) Urine Ketones (Negative) Urine Blood (Negative) Urine Nitrite (Negative) Urine Bilirubin (Negative) Urine Urobilinogen (Negative) Ur Leukocyte Esterase (Negative) Urine WBC (Auto) (0-5) /hpf Urine RBC (Auto) (0-4) /hpf U Hyaline Cast (Auto) (0-5) /lpf U Epithel Cells (Auto) (0-5) /lpf Urine Bacteria (Auto) (Negative) 03/30/19 03/30/19 03/30/19 Range/Units 20:10 17:07 12:10 WBC (4.8-10.8) K/uL RBC (4.2-5.4) M/uL Hgb (12.0-16.0) g/dL Hct (37-47) % MCV (80-100) fL MCH (25-34) pg MCHC (32-36) g/dL RDW Std Deviation (36.4-46.3) fL RDW Coeff of [place] (11.5-14.5) % Plt Count (130-400) K/uL MPV (7.4-10.4) fL Immature Gran % (Auto) % Neut % (Auto) % Lymph % (Auto) % [place] % (Auto) % Eos % (Auto) % Baso % (Auto) % Immature Gran # (Auto) (0.00-0.02) K/uL Neut # (Auto) (1.4-6.5) K/uL Lymph # (Auto) (1.2-3.4) K/uL [place] # (Auto) (0.11-0.59) K/uL Eos # (Auto) (0-0.5) K/uL Baso # (Auto) (0-0.2) K/uL PT (9.0-12.0) Seconds INR (0.9-1.1) Sodium (136-145) mmol/L Potassium (3.5-5.1) mmol/L Chloride (98-107) mmol/L Carbon Dioxide (21-32) mmol/L Anion Gap (3-11) BUN (7-18) mg/dl Creatinine (0.6-1.2) mg/dl Est Cr Clr Drug Dosing ml/min Est GFR ( Amer) Est GFR (Non-Af Amer) BUN/Creatinine Ratio (10-20) Glucose (70-99) mg/dl POC Glucose 146 H 150 H 182 H (70-99) Calcium (8.5-10.1) mg/dl Phosphorus (2.5-4.9) mg/dl Magnesium (1.8-2.4) mg/dl Urine Color Urine Appearance (Clear) Urine pH (4.5-7.5) Ur Specific [place] (1.000-1.030) Urine Protein (Negative) Urine Glucose (UA) (Negative) Urine Ketones (Negative) Urine Blood (Negative) Urine Nitrite (Negative) Urine Bilirubin (Negative) Urine Urobilinogen (Negative) Ur Leukocyte Esterase (Negative) Urine WBC (Auto) (0-5) /hpf Urine RBC (Auto) (0-4) /hpf U Hyaline Cast (Auto) (0-5) /lpf U Epithel Cells (Auto) (0-5) /lpf Urine Bacteria (Auto) (Negative) 03/30/19 03/30/19 Range/Units 08:25 08:00 WBC (4.8-10.8) K/uL RBC (4.2-5.4) M/uL Hgb (12.0-16.0) g/dL Hct (37-47) % MCV (80-100) fL MCH (25-34) pg MCHC (32-36) g/dL RDW Std Deviation (36.4-46.3) fL RDW Coeff of [place] (11.5-14.5) % Plt Count (130-400) K/uL MPV (7.4-10.4) fL Immature Gran % (Auto) % Neut % (Auto) % Lymph % (Auto) % [place] % (Auto) % Eos % (Auto) % Baso % (Auto) % Immature Gran # (Auto) (0.00-0.02) K/uL Neut # (Auto) (1.4-6.5) K/uL Lymph # (Auto) (1.2-3.4) K/uL [place] # (Auto) (0.11-0.59) K/uL Eos # (Auto) (0-0.5) K/uL Baso # (Auto) (0-0.2) K/uL PT (9.0-12.0) Seconds INR (0.9-1.1) Sodium (136-145) mmol/L Potassium (3.5-5.1) mmol/L Chloride (98-107) mmol/L Carbon Dioxide (21-32) mmol/L Anion Gap (3-11) BUN (7-18) mg/dl Creatinine (0.6-1.2) mg/dl Est Cr Clr Drug Dosing ml/min Est GFR ( Amer) Est GFR (Non-Af Amer) BUN/Creatinine Ratio (10-20) Glucose (70-99) mg/dl POC Glucose 147 H (70-99) Calcium (8.5-10.1) mg/dl Phosphorus (2.5-4.9) mg/dl Magnesium (1.8-2.4) mg/dl Urine Color Yellow Urine Appearance Clear (Clear) Urine pH 7.5 (4.5-7.5) Ur Specific [place] 1.015 (1.000-1.030) Urine Protein Negative (Negative) Urine Glucose (UA) Negative (Negative) Urine Ketones Trace H (Negative) Urine Blood Negative (Negative) Urine Nitrite Negative (Negative) Urine Bilirubin Negative (Negative) Urine Urobilinogen Negative (Negative) Ur Leukocyte Esterase Trace H (Negative) Urine WBC (Auto) 1-5 (0-5) /hpf Urine RBC (Auto) 0-4 (0-4) /hpf U Hyaline Cast (Auto) 0 (0-5) /lpf U Epithel Cells (Auto) 10-20 H (0-5) /lpf Urine Bacteria (Auto) Negative (Negative) Medications Administered Current Inpatient Medications Acetaminophen (Tylenol) 650 mg PO Q4H PRN PRN Reason: pain/fever Stop: 04/21/19 07:47 Last Admin: 03/29/19 16:19 Dose: 650 mg Documented by: Bimatoprost (Lumigan 0.01%) 1 drops OP PM MATTHEW Stop: 04/23/19 20:59 Last Admin: 03/30/19 21:06 Dose: 1 drops Documented by: Cyanocobalamin (Vitamin B-12) 500 mcg PO DAILY MATTHEW Stop: 04/26/19 08:59 Last Admin: 03/30/19 08:05 Dose: 500 mcg Documented by: Dextrose (Dextrose 50%) 25 - 50 ml IV UD PRN; Protocol PRN Reason: Hypoglycemia Protocol Stop: 04/21/19 13:29 Furosemide (Lasix) 20 mg PO DAILY MATTHEW Stop: 04/21/19 08:59 Last Admin: 03/22/19 08:58 Dose: Not Given Documented by: Glucagon (Glucagen) 1 mg IM UD PRN; Protocol PRN Reason: Hypoglycemia Protocol Stop: 04/21/19 13:29 Glucose (Glucose 40%) 15 - 30 gm PO UD PRN; Protocol PRN Reason: Hypoglycemia Protocol Stop: 04/21/19 13:29 Glucose (Dex4 Glucose) 4 - 8 tabs PO UD PRN; Protocol PRN Reason: Hypoglycemia Protocol Stop: 04/21/19 13:29 Hydromorphone HCl (Dilaudid) 0.25 mg IV Q1H PRN PRN Reason: Pain Stop: 04/10/19 10:46 Last Admin: 03/27/19 11:00 Dose: 0.25 mg Documented by: Magnesium Sulfate/Dextrose (Magnesium Sulfate / D5w) 1 gm in 100 mls @ 100 mls/hr IV ONE ONE Stop: 03/31/19 09:02 Insulin Aspart (Novolog Flexpen) 0 units SC ACHS MATTHEW Stop: 04/27/19 07:29 Last Admin: 03/30/19 21:07 Dose: 1 units Documented by: Lisinopril (Zestril) 2.5 mg PO DAILY MATTHEW Stop: 04/21/19 08:59 Last Admin: 03/26/19 08:06 Dose: Not Given Documented by: Metformin HCl (Glucophage Er) 1,000 mg PO QDD MATTHEW Stop: 04/25/19 16:29 Metformin HCl (Glucophage Er) 500 mg PO QDB MATTHEW Stop: 04/26/19 07:29 Miscellaneous (Carbohydrates For Hypoglycemia) 15 - 30 gm PO UD PRN PRN Reason: Hypoglycemia Treatment Stop: 04/21/19 13:29 Last Admin: 03/27/19 17:59 Dose: 15 gm Documented by: Multivitamins/Minerals (Caltrate Plus) 1 tab PO BID MATTHEW Stop: 04/25/19 20:59 Last Admin: 03/30/19 21:05 Dose: 1 tab Documented by: Multivitamins/Minerals (Multivitamin W/ Minerals Tab) 1 tab PO DAILY MATTHEW Stop: 04/26/19 08:59 Last Admin: 03/30/19 08:05 Dose: 1 tab Documented by: Ondansetron HCl (Zofran) 4 mg IV Q6H PRN PRN Reason: Nausea Stop: 04/21/19 07:47 Last Admin: 03/25/19 20:50 Dose: 4 mg Documented by: Polyethylene Glycol (Miralax Powder Packet) 17 gm PO DAILY MATTHEW Stop: 04/28/19 08:59 Last Admin: 03/30/19 08:05 Dose: 17 gm Documented by: Potassium Chloride (Klor-Con M10) 10 meq PO BID [facility] Stop: 04/27/19 08:59 Last Admin: 03/30/19 21:06 Dose: 10 meq Documented by: Simvastatin (Zocor) 10 mg PO PM [facility] Stop: 04/21/19 20:59 Last Admin: 03/30/19 21:07 Dose: 10 mg Documented by: Timolol Maleate (Timoptic 0.25% Oph) 1 drops OP QAM [facility] Stop: 04/23/19 12:14 Last Admin: 03/30/19 08:05 Dose: 1 drops Documented by: Tramadol HCl (Ultram) 25 mg PO Q4H PRN PRN Reason: Pain Stop: 04/25/19 20:04 Warfarin Sodium (Coumadin) 4 mg PO DAILY@1600 [facility] Stop: 04/29/19 15:59 Last Admin: 03/30/19 16:43 Dose: 4 mg Documented by:
[2019-03-31] MEDS ORDERED: MAGNESIUM SULFATE / D5W 1 GM/100 ML BAG IV ONE (08:15)
[2019-03-31] MEDS: POLYETHYLENE (MIRALAX) 17 GM PACK PO SCH (08:38)
[2019-03-31] MEDS: CALCIUM 600MG + VIT D 400 IU TAB PO SCH ×2 (08:39→21:26)
[2019-03-31] MEDS: CEROVITE ADV FORMULA TAB PO SCH (08:39)
[2019-03-31] MEDS: CYANOCOBALAMIN 500 MCG TABLET (VITAMIN B-12) PO SCH (08:39)
[2019-03-31] MEDS: POTASSIUM CHLORIDE 10 MEQ TABCR PO SCH ×2 (08:39→21:26)
[2019-03-31] MEDS: TIMOLOL MALEATE 0.25% OP SOLN 5 ML BTL OP SCH (08:39)
[2019-03-31] MEDS: INSULIN ASPART 100 UNITS/ML 3 ML PEN SC SCH ×4 (08:44→21:26)
[2019-03-31] MEDS ORDERED: POLYETHYLENE (MIRALAX) 17 GM PACK PO PRN (15:49)
[2019-03-31] MEDS: WARFARIN SOD 4 MG TAB PO SCH (16:33)
[2019-03-31] MEDS: SIMVASTATIN 10 MG TAB PO SCH (21:26)
[2019-03-31] MEDS: BIMATOPROST 0.01% OP SOLN 2.5 ML BTL OP SCH (21:27)
[2019-04-01 05:16] LABS: Basophils # (auto) 0.03 K/uL (0-0.2); Basophils % (auto) 0.5 %; Eosinophils % (auto) 4.8 %; Hematocrit (blood only) 27.7 % (37-47); Hemoglobin 8.9 g/dL (12.0-16.0); Immature Granulocytes # (auto) 0.01 K/uL (0.00-0.02); Immature Granulocytes % (auto) 0.2 %; Lymphocytes # (auto) 1.46 K/uL (1.2-3.4); Lymphocytes % (auto) 23.3 %; Mean Corpuscular Hemoglobin 29.4 pg (25-34); Mean Corpuscular Hgb Conc 32.1 g/dL (32-36); Mean Corpuscular Volume 91.4 fL (80-100); Mean Platelet Volume 9.5 fL (7.4-10.4); Monocytes % (auto) 12.8 %; Neutrophils # (auto) 3.66 K/uL (1.4-6.5); Neutrophils % (auto) 58.4 %; Platelet Count 168 K/uL (130-400); RDW Coefficient of Variation 12.9 % (11.5-14.5); RDW Standard Deviation 43.1 fL (36.4-46.3); Red Blood Count 3.03 M/uL (4.2-5.4); White Blood Count 6.26 K/uL (4.8-10.8)
[2019-04-01 05:48] LABS: BUN Creatinine Ratio 15.5 (10-20); Calcium 8.5 mg/dl (8.5-10.1); Magnesium 1.7 mg/dl (1.8-2.4); Potassium 4.5 mmol/L (3.5-5.1)
--- NOTE | 2019-04-01 07:33 | Hospitalist Progress Note ---
Date of Service April 01, 2019 Assessment & Plan (1) SBO (small bowel obstruction): Admitted with abdominal pain, distention and nausea CT of the abdomen and pelvis did show small bowel obstruction likely secondary to adhesions from past cholecystectomy She was kept n.p.o., received IV fluid and IV pain medications Surgery was consulted as KUB showed persistence of SBO + obstructive symptoms Pt is now s/p ex lap and lysis of adhesions (03/26/2019), tolerated procedure well (though became mildly hypotensive post-op) Tolerates PO intake well, having BMs Does not require any pain control Anemia normocytic, likely multifact. etiology besides surg. blood loss Hgb stable at ~9 will cont. to monitor (2) HTN (hypertension): Blood pressure seems to be under control (3) Diabetes: We will hold any oral diabetic medications put her on sliding scale insulin coverage while in the hospital Hgb A1c-6.7 on 03/23 Electrolyte abnormalities -secondary to poor/no oral intake, diuretics -will improve when tolerates food -will correct hypomag-, hypokal-, hypophosphatemia as needed (4) High cholesterol: Continue statin (5) Lumbar compression fracture: No acute symptoms History of pulmonary embolism on Coumadin will cont to monitor INR, therapeutic and had to be reversed for surgery (Received 2 units of fresh frozen plasma and 2.5 mg of intravenous vitamin K to reverse INR prior to surgery) Re-started Coumadin (03/27, 5mg then decreased dose to 2.5 mg 03/28), will increase her warfarin to home dose 5mg, last INR 1.3 Pt will need INR check as outpt was on Lovenox subcu UA suggestive of infection Urine cultures grew 3 different organisms likely contaminant Discontinued antibiotic Subjective No acute events overnight. Tolerates p.o. intake well. Moves bowels. Denies any fevers, chills, chest pain, shortness of breath, abdominal pain, nausea or vomiting. Review of Systems Review of Systems: All systems reviewed and are unremarkable except as noted. Constitutional: no fever, no chills and no fatigue Respiratory: no cough and no dyspnea Cardiovascular: no chest pain, no palpitations and no edema Gastrointestinal: no abdominal pain, no nausea, no vomiting and no constipation Genitourinary: no dysuria Physical Exam Physical Exam: Pleasant elderly female sitting up in a chair, in no acute distress Constitutional: well developed and well nourished; no acute distress Eyes: PERRL, conjunctivae normal, anicteric sclerae ENMT: external ear and nose normal, oropharynx normal Neck: trachea midline, no thyromegaly Respiratory: normal respiratory effort, lungs clear to auscultation Auscultation: no crackles, no rhonchi and no wheezes Cardiovascular: RRR, no murmur, no edema Rate/Rhythm: regular rate and regular rhythm Heart Sounds: no murmur Extremities: no edema Chest (Breasts): Chest: normal inspection of chest Gastrointestinal (Abdomen): Inspection/Auscultation: normal bowel sounds; + abdomen abnormal to inspection (clean dry dressings placed vertically over abdomen ) and abdomen not distended Percussion/Palpation: abdomen soft; abdomen nontender, no guarding and abdomen not rigid Musculoskeletal: Head/Neck/Chest: normocephalic, head atraumatic and neck supple Extremities: extremities normal to inspection (Full range of motion of left and right knee, no pain elicited with movement) Skin: no rashes, warm and dry no jaundice Neurologic: PERRL, EOMI, accommodation nl, no face palsy, no dysarthria Psychiatric: A+Ox3, euthymic affect Speech: normal rate/rhythm/volume of speech Genitourinary: no CVA tenderness Lymphatic: no cervical or axillary lymphadenopathy + lymphedema Results & Data Vital Signs (Past 12 Hours) Vital Signs Temp Pulse Resp BP Pulse Ox 04/01/19 07:16 36.7 C 86 16 131/76 94 03/31/19 23:10 37.0 C 92 H 16 125/71 95 Laboratory Results 04/01/19 04/01/19 03/31/19 Range/Units 04:43 04:43 20:23 WBC 6.26 (4.8-10.8) K/uL RBC 3.03 L (4.2-5.4) M/uL Hgb 8.9 L (12.0-16.0) g/dL Hct 27.7 L (37-47) % MCV 91.4 (80-100) fL MCH 29.4 (25-34) pg MCHC 32.1 (32-36) g/dL RDW Std Deviation 43.1 (36.4-46.3) fL RDW Coeff of [place] 12.9 (11.5-14.5) % Plt Count 168 (130-400) K/uL MPV 9.5 (7.4-10.4) fL Immature Gran % (Auto) 0.2 % Neut % (Auto) 58.4 % Lymph % (Auto) 23.3 % [place] % (Auto) 12.8 % Eos % (Auto) 4.8 % Baso % (Auto) 0.5 % Immature Gran # (Auto) 0.01 (0.00-0.02) K/uL Neut # (Auto) 3.66 (1.4-6.5) K/uL Lymph # (Auto) 1.46 (1.2-3.4) K/uL [place] # (Auto) 0.80 H (0.11-0.59) K/uL Eos # (Auto) 0.30 (0-0.5) K/uL Baso # (Auto) 0.03 (0-0.2) K/uL Sodium 141 (136-145) mmol/L Potassium 4.5 (3.5-5.1) mmol/L Chloride 106 (98-107) mmol/L Carbon Dioxide 30 (21-32) mmol/L Anion Gap 5.0 (3-11) BUN 14 D (7-18) mg/dl Creatinine 0.93 (0.6-1.2) mg/dl Est Cr Clr Drug Dosing 35.0 ml/min Est GFR ( Amer) 65.0 Est GFR (Non-Af Amer) 56.0 BUN/Creatinine Ratio 15.5 (10-20) Glucose 117 H (70-99) mg/dl POC Glucose 138 H (70-99) Calcium 8.5 (8.5-10.1) mg/dl Magnesium 1.7 L (1.8-2.4) mg/dl 03/31/19 03/31/19 03/31/19 Range/Units 17:04 11:57 08:21 WBC (4.8-10.8) K/uL RBC (4.2-5.4) M/uL Hgb (12.0-16.0) g/dL Hct (37-47) % MCV (80-100) fL MCH (25-34) pg MCHC (32-36) g/dL RDW Std Deviation (36.4-46.3) fL RDW Coeff of [place] (11.5-14.5) % Plt Count (130-400) K/uL MPV (7.4-10.4) fL Immature Gran % (Auto) % Neut % (Auto) % Lymph % (Auto) % [place] % (Auto) % Eos % (Auto) % Baso % (Auto) % Immature Gran # (Auto) (0.00-0.02) K/uL Neut # (Auto) (1.4-6.5) K/uL Lymph # (Auto) (1.2-3.4) K/uL [place] # (Auto) (0.11-0.59) K/uL Eos # (Auto) (0-0.5) K/uL Baso # (Auto) (0-0.2) K/uL Sodium (136-145) mmol/L Potassium (3.5-5.1) mmol/L Chloride (98-107) mmol/L Carbon Dioxide (21-32) mmol/L Anion Gap (3-11) BUN (7-18) mg/dl Creatinine (0.6-1.2) mg/dl Est Cr Clr Drug Dosing ml/min Est GFR ( Amer) Est GFR (Non-Af Amer) BUN/Creatinine Ratio (10-20) Glucose (70-99) mg/dl POC Glucose 148 H 144 H 147 H (70-99) Calcium (8.5-10.1) mg/dl Magnesium (1.8-2.4) mg/dl Medications Administered Current Inpatient Medications Acetaminophen (Tylenol) 650 mg PO Q4H PRN PRN Reason: pain/fever Stop: 04/21/19 07:47 Last Admin: 03/29/19 16:19 Dose: 650 mg Documented by: Bimatoprost (Lumigan 0.01%) 1 drops OP PM MATTHEW Stop: 04/23/19 20:59 Last Admin: 03/31/19 21:27 Dose: 1 drops Documented by: Cyanocobalamin (Vitamin B-12) 500 mcg PO DAILY MATTHEW Stop: 04/26/19 08:59 Last Admin: 03/31/19 08:39 Dose: 500 mcg Documented by: Dextrose (Dextrose 50%) 25 - 50 ml IV UD PRN; Protocol PRN Reason: Hypoglycemia Protocol Stop: 04/21/19 13:29 Furosemide (Lasix) 20 mg PO DAILY MATTHEW Stop: 04/21/19 08:59 Last Admin: 03/22/19 08:58 Dose: Not Given Documented by: Glucagon (Glucagen) 1 mg IM UD PRN; Protocol PRN Reason: Hypoglycemia Protocol Stop: 04/21/19 13:29 Glucose (Glucose 40%) 15 - 30 gm PO UD PRN; Protocol PRN Reason: Hypoglycemia Protocol Stop: 04/21/19 13:29 Glucose (Dex4 Glucose) 4 - 8 tabs PO UD PRN; Protocol PRN Reason: Hypoglycemia Protocol Stop: 04/21/19 13:29 Hydromorphone HCl (Dilaudid) 0.25 mg IV Q1H PRN PRN Reason: Pain Stop: 04/10/19 10:46 Last Admin: 03/27/19 11:00 Dose: 0.25 mg Documented by: Magnesium Sulfate/Dextrose (Magnesium Sulfate / D5w) 1 gm in 100 mls @ 100 mls/hr IV Q1H MATTHEW Stop: 04/01/19 09:44 Insulin Aspart (Novolog Flexpen) 0 units SC ACHS MATTHEW Stop: 04/27/19 07:29 Last Admin: 03/31/19 21:26 Dose: Not Given Documented by: Lisinopril (Zestril) 2.5 mg PO DAILY MATTHEW Stop: 04/21/19 08:59 Last Admin: 03/26/19 08:06 Dose: Not Given Documented by: Metformin HCl (Glucophage Er) 1,000 mg PO QDD MATTHEW Stop: 04/25/19 16:29 Metformin HCl (Glucophage Er) 500 mg PO QDB MATTHEW Stop: 04/26/19 07:29 Miscellaneous (Carbohydrates For Hypoglycemia) 15 - 30 gm PO UD PRN PRN Reason: Hypoglycemia Treatment Stop: 04/21/19 13:29 Last Admin: 03/27/19 17:59 Dose: 15 gm Documented by: Multivitamins/Minerals (Caltrate Plus) 1 tab PO BID MATTHEW Stop: 04/25/19 20:59 Last Admin: 03/31/19 21:26 Dose: 1 tab Documented by: Multivitamins/Minerals (Multivitamin W/ Minerals Tab) 1 tab PO DAILY MATTHEW Stop: 04/26/19 08:59 Last Admin: 03/31/19 08:39 Dose: 1 tab Documented by: Ondansetron HCl (Zofran) 4 mg IV Q6H PRN PRN Reason: Nausea Stop: 04/21/19 07:47 Last Admin: 03/25/19 20:50 Dose: 4 mg Documented by: Polyethylene Glycol (Miralax Powder Packet) 17 gm PO DAILY PRN PRN Reason: Constipation Stop: 04/28/19 08:59 Potassium Chloride (Klor-Con M10) 10 meq PO BID [facility] Stop: 04/27/19 08:59 Last Admin: 03/31/19 21:26 Dose: 10 meq Documented by: Simvastatin (Zocor) 10 mg PO PM [facility] Stop: 04/21/19 20:59 Last Admin: 03/31/19 21:26 Dose: 10 mg Documented by: Timolol Maleate (Timoptic 0.25% Oph) 1 drops OP QAM [facility] Stop: 04/23/19 12:14 Last Admin: 03/31/19 08:39 Dose: 1 drops Documented by: Tramadol HCl (Ultram) 25 mg PO Q4H PRN PRN Reason: Pain Stop: 04/25/19 20:04 Warfarin Sodium (Coumadin) 4 mg PO DAILY@1600 [facility] Stop: 04/29/19 15:59 Last Admin: 03/31/19 16:33 Dose: 4 mg Documented by:
[2019-04-01] MEDS: CALCIUM 600MG + VIT D 400 IU TAB PO SCH (08:39)
[2019-04-01] MEDS: POTASSIUM CHLORIDE 10 MEQ TABCR PO SCH (08:40)
[2019-04-01] MEDS: TIMOLOL MALEATE 0.25% OP SOLN 5 ML BTL OP SCH (08:40)
[2019-04-01] MEDS: CEROVITE ADV FORMULA TAB PO SCH (08:40)
[2019-04-01] MEDS: CYANOCOBALAMIN 500 MCG TABLET (VITAMIN B-12) PO SCH (08:40)
[2019-04-01] MEDS: INSULIN ASPART 100 UNITS/ML 3 ML PEN SC SCH ×3 (09:01→18:04)
[2019-04-01] MEDS: MAGNESIUM SULFATE / D5W 1 GM/100 ML BAG IV SCH ×2 (09:06→10:24)
--- NOTE | 2019-04-01 12:42 | Surgery Progress Note ---
Date of Service pt is doing fine, she tolertaed diet, no nausea, no vomiting, passed BM April 01, 2019 Assessment & Plan (1) SBO (small bowel obstruction): POD # 1 s/p ex lap, lysis of adhesions -vitals stable, afebrile - NGT with 200 cc last shift, 2900 total since placement, green bilious - minimal post op pain - UO low overnight 200 cc last shift -H&H 8.9/27.6 today (11.5/35.4 preop) Plan: Continue pain management as needed continue npo continue NGT to LIS Incentive spirometry OOB to chair and ambulate with assistance today will follow UO today and determine need for [place] monitor H&H, likely dilutional, patient asymptomatic Dr. Flores to see patient this afternoon 03/27/2019 12:30 PM, POD 1, doing fine, miralax, 10 mg dulcolax, po, resume coumadin tonight, pull out NT today afternoon, will F/U 03/28/2019 7:28am doing fine, passed some flatus, h/h 9.2 change coumadin to 2.5mg po once a day. 10mg reglan po today, clear diet, OOB will F/U 03/29/2019 6:59am doing fine, DM diet, possible D/C home tomorrow, resume home dose coumadin tomorrow. hep lock IV she can take a shower on 03/31/2019, Follow up me in 1-2 weeks, on-call surgeon will cover her this weekend 04/01/2019 12:42PM. pt can be discharged home today, Thanks, Subjective No acute events overnight. Tolerates p.o. intake well. Moves bowels. Denies any fevers, chills, chest pain, shortness of breath, abdominal pain, nausea or vom iting. Physical Exam Constitutional: WD/WN, vitals as above well developed and well nourished; no acute distress ENMT: external ear and nose normal, oropharynx normal Ears: + hearing impairment Neck: trachea midline, no thyromegaly Respiratory: normal respiratory effort, lungs clear to auscultation normal respiratory effort Cardiovascular: RRR, no murmur, no edema Rate/Rhythm: regular rate and regular rhythm Heart Sounds: normal S1 and normal S2 Gastrointestinal (Abdomen): normal bowel sounds, soft, nontender, no hepatosplenomegaly Inspection/Auscultation: abdomen normal to inspection, + abdomen distended and + hypoactive bowel sounds; + abnormal bowel sounds Percussion/Palpation: + abdomen tender and abdomen soft; no guarding and abdomen not rigid Musculoskeletal: no cyanosis or clubbing, extremities motor strength 5/5 Skin: no rashes, warm and dry Neurologic: patellar DTR's 2+ bilat, sensation intact awake Psychiatric: A+Ox3, euthymic affect Orientation: alert and oriented x 3 Lymphatic: no cervical or axillary lymphadenopathy Results & Data Vital Signs (Past 12 Hours) Vital Signs Temp Pulse Resp BP Pulse Ox 04/01/19 07:16 36.7 C 86 16 131/76 94
--- NOTE | 2019-04-01 12:46 | Discharge Summary ---
Date of Service April 01, 2019 Admission HPI Per Admitting Provider This 83-year-old female with past medical history significant for diabetes, hyperlipidemia, hypertension, osteoporosis, general osteoarthritis, macular degeneration, hard of hearing, and history ofpulmonary embolism, presents with abdominal pain. The patient yesterday evening at 6:00 p.m. started noticing abdominal pain in the epigastric region, 7/10 in severity, not associated with any nausea or vomiting, no diarrhea or constipation. Last bowel movement was about Monday. She is passing only a small amount of flatus, so she came to the ER. Currently resting comfortably and hemodynamically stable. Never had an abdominal obstruction in the past. Denies any chest pain, no shortness of breath, no cough, no fever, no chills, no headache, no blurred vision, no sore throat, no difficulty swallowing. Appetite is okay. She ate her dinner last night. No rash. Has some lower extremity edema. She is on Lasix for the last 1 month for lower extremity edema. Admission Exam Per Admitting Provider GENERAL: The patient is of moderate built, not in acute distress. VITAL SIGNS: Temperature 36.4, pulse 79, respiratory rate 16, blood pressure 128/77, oxygen 93% on room air. HEENT: No pallor, no icterus. Pupils equal, round, and reactive to light. NECK: No JVD, no neck masses, no carotid bruits. CARDIOVASCULAR: S1, S2 heard, regular rate and rhythm, no murmur, no gallop. RESPIRATORY SYSTEM: Normal AP diameter. No accessory muscle use. No wheezing, no crackles. ABDOMEN: Soft, mild epigastric tenderness, no guarding, no rigidity, no rebound tenderness. CENTRAL NERVOUS SYSTEM: Cranial nerves II-XII grossly intact. Nonfocal. EXTREMITIES: No edema, no erythema. Principal Diagnosis Small bowel obstruction, Hypertension, Anemia, Hypomagnesemia, Diabetes Discharge Exam Constitutional well developed and well nourished; no acute distress Eyes PERRL, conjunctivae normal, anicteric sclerae ENMT external ear and nose normal, oropharynx normal Neck trachea midline, no thyromegaly Respiratory normal respiratory effort, lungs clear to auscultation Auscultation: no crackles, no rhonchi and no wheezes Cardiovascular RRR, no murmur, no edema Rate/Rhythm: regular rate and regular rhythm Heart Sounds: no murmur Extremities: no edema Chest (Breasts) Chest: normal inspection of chest Gastrointestinal (Abdomen) Inspection/Auscultation: normal bowel sounds; + abdomen abnormal to inspection (clean dry dressings placed vertically over abdomen ) and abdomen not distended Percussion/Palpation: abdomen soft; abdomen nontender, no guarding and abdomen not rigid Musculoskeletal Head/Neck/Chest: normocephalic, head atraumatic and neck supple Extremities: extremities normal to inspection (Full range of motion of left and right knee, no pain elicited with movement) Skin no rashes, warm and dry no jaundice Neurologic PERRL, EOMI, accommodation nl, no face palsy, no dysarthria Psychiatric A+Ox3, euthymic affect Speech: normal rate/rhythm/volume of speech Genitourinary no CVA tenderness Lymphatic no cervical or axillary lymphadenopathy + lymphedema Discharge Data Allergies Allergy/AdvReac Type Severity Reaction Status Date / Time No Known Allergies Allergy Unknown Verified 03/22/19 04:13 Consultations 03/22/19 06:26 ED Decision to Admit Stat 03/22/19 07:48 Consult Case Management - Discharge Planning Routine Consult General Surgery Routine Procedures Performed Operation Date: 03/26/19 12:35 Actual Procedures p Exploratory Laparotomy and Lysis of Adhesions - Yue Flores MD Ordered Studies 03/22/19 04:44 CT abd pelvis IV con only Urgent 03/25/19 12:07 FL small bowel study Routine LABS: 04/01/19 04/01/19 04/01/19 Range/Units 11:59 07:59 04:43 WBC (4.8-10.8) K/uL RBC (4.2-5.4) M/uL Hgb (12.0-16.0) g/dL Hct (37-47) % MCV (80-100) fL MCH (25-34) pg MCHC (32-36) g/dL RDW Std Deviation (36.4-46.3) fL RDW Coeff of [place] (11.5-14.5) % Plt Count (130-400) K/uL MPV (7.4-10.4) fL Immature Gran % (Auto) % Neut % (Auto) % Lymph % (Auto) % [place] % (Auto) % Eos % (Auto) % Baso % (Auto) % Immature Gran # (Auto) (0.00-0.02) K/uL Neut # (Auto) (1.4-6.5) K/uL Lymph # (Auto) (1.2-3.4) K/uL [place] # (Auto) (0.11-0.59) K/uL Eos # (Auto) (0-0.5) K/uL Baso # (Auto) (0-0.2) K/uL Sodium 141 (136-145) mmol/L Potassium 4.5 (3.5-5.1) mmol/L Chloride 106 (98-107) mmol/L Carbon Dioxide 30 (21-32) mmol/L Anion Gap 5.0 (3-11) BUN 14 D (7-18) mg/dl Creatinine 0.93 (0.6-1.2) mg/dl Est Cr Clr Drug Dosing 35.0 ml/min Est GFR ( Amer) 65.0 Est GFR (Non-Af Amer) 56.0 BUN/Creatinine Ratio 15.5 (10-20) Glucose 117 H (70-99) mg/dl POC Glucose 180 H 145 H (70-99) Calcium 8.5 (8.5-10.1) mg/dl Magnesium 1.7 L (1.8-2.4) mg/dl 04/01/19 03/31/19 03/31/19 Range/Units 04:43 20:23 17:04 WBC 6.26 (4.8-10.8) K/uL RBC 3.03 L (4.2-5.4) M/uL Hgb 8.9 L (12.0-16.0) g/dL Hct 27.7 L (37-47) % MCV 91.4 (80-100) fL MCH 29.4 (25-34) pg MCHC 32.1 (32-36) g/dL RDW Std Deviation 43.1 (36.4-46.3) fL RDW Coeff of [place] 12.9 (11.5-14.5) % Plt Count 168 (130-400) K/uL MPV 9.5 (7.4-10.4) fL Immature Gran % (Auto) 0.2 % Neut % (Auto) 58.4 % Lymph % (Auto) 23.3 % [place] % (Auto) 12.8 % Eos % (Auto) 4.8 % Baso % (Auto) 0.5 % Immature Gran # (Auto) 0.01 (0.00-0.02) K/uL Neut # (Auto) 3.66 (1.4-6.5) K/uL Lymph # (Auto) 1.46 (1.2-3.4) K/uL [place] # (Auto) 0.80 H (0.11-0.59) K/uL Eos # (Auto) 0.30 (0-0.5) K/uL Baso # (Auto) 0.03 (0-0.2) K/uL Sodium (136-145) mmol/L Potassium (3.5-5.1) mmol/L Chloride (98-107) mmol/L Carbon Dioxide (21-32) mmol/L Anion Gap (3-11) BUN (7-18) mg/dl Creatinine (0.6-1.2) mg/dl Est Cr Clr Drug Dosing ml/min Est GFR ( Amer) Est GFR (Non-Af Amer) BUN/Creatinine Ratio (10-20) Glucose (70-99) mg/dl POC Glucose 138 H 148 H (70-99) Calcium (8.5-10.1) mg/dl Magnesium (1.8-2.4) mg/dl Hospital Course (1) SBO (small bowel obstruction): Admitted with abdominal pain, distention and nausea CT of the abdomen and pelvis did show small bowel obstruction likely secondary to adhesions from past cholecystectomy She was kept n.p.o., received IV fluid and IV pain medications Surgery was consulted as KUB showed persistence of SBO + obstructive symptoms Pt is now s/p ex lap and lysis of adhesions (03/26/2019), tolerated procedure well (though became mildly hypotensive post-op) Tolerates PO intake well, having BMs Does not require any pain control Plan to discharge home today - will provide miralax daily prn, recommended pt to take tylenol if needed for pain/ or call physician Anemia normocytic, likely multifact. etiology besides surg. blood loss Hgb stable at ~9 will cont. to monitor (2) HTN (hypertension): Blood pressure seems to be under control (3) Diabetes: We will hold any oral diabetic medications put her on sliding scale insulin coverage while in the hospital Hgb A1c-6.7 on 03/23 Electrolyte abnormalities -secondary to poor/no oral intake, diuretics -will improve when tolerates food -will correct hypomag-, hypokal-, hypophosphatemia as needed -persistently hypomag. despite tolerating po intake, therefore likely secondary to diuretic use -will start her on PO magnesium suppl. as outpt, she will then follow with her PCP (4) High cholesterol: Continue statin (5) Lumbar compression fracture: No acute symptoms History of pulmonary embolism on Coumadin will cont to monitor INR, therapeutic and had to be reversed for surgery (Received 2 units of fresh frozen plasma and 2.5 mg of intravenous vitamin K to reverse INR prior to surgery) Re-started Coumadin (03/27, 5mg then decreased dose to 2.5 mg 03/28), will increase her warfarin to home dose 5mg, last INR 1.3 Pt will need INR check as outpt was on Lovenox subcu UA suggestive of infection Urine cultures grew 3 different organisms likely contaminant Discontinued antibiotic Total Time Total Time Spent Total Time Spent (In Minutes): 35 min Total Time Includes: Examination of the Patient, Discharge Planning, Medication Reconciliation and Communication With Other Providers Discharge Plan Discharge Items Patient Disposition: Home - Self-Care Reason For Visit: ABDOMINAL PAIN Discharge Diagnosis: Small bowel obstruction, Hypertension, Anemia, Hypomagnesemia, Diabetes Condition on Discharge: Good Activity: Per Instructions section Non-emergency contact: Primary Care Provider and Surgeon Call non-emergency contact if: you have any medication questions, your symptoms worsen and your pain is not controlled Follow-up/Referrals: Jocelin Guadalupe DO [Primary Care Provider] - 04/04/19 11:40 am Diet: Regular Addtl Attending Provider Instructions: Surgical discharge instructions: -no heavy lifting over 10 pounds for 6 weeks - no strenuous activity for 6 weeks or until cleared by surgeon - no submerging incision underwater for 2 weeks (no swimming, bathing, or hot tubs) - no driving while taking pain medication or until you are pain free - You may shower - Surgical uzair will be removed in office in a few weeks - You can take extra strength Tylenol or Ibuprofen as needed for mild pain - Follow-up in surgical office in 1-2 weeks, please call office at [phone] to make an appointment and if you have any questions or concerns. Pending Studies at Discharge: No Stand-Alone Forms: My [facility], Smoking Cessation Medications and DC Order Prescriptions: New polyethylene glycol 3350 [Miralax] 17 gram Powder In Packet 17 g PO DAILY PRN (Reason: constipation) Qty: 10 RF: 0 magnesium oxide 200 mg magnesium tablet,chewable 200 mg PO DAILY Qty: 14 RF: 0 Continued acetaminophen [Tylenol Arthritis Pain] 650 mg Tablet Extended Release 650 mg PO Q12H PRN (Reason: Pain) RF: 0 furosemide [Lasix] 20 mg Tablet 20 mg PO DAILY RF: 0 lisinopril 2.5 mg Tablet 2.5 mg PO DAILY RF: 0 metformin 1,000 mg Tablet Extended Release 24hr 1,000 mg PO PM RF: 0 metformin 500 mg Tablet Extended Release 24 Hr 500 mg PO QAM RF: 0 simvastatin 10 mg Tablet 10 mg PO PM RF: 0 calcium carbonate-vitamin D3 1 tab PO BID RF: 0 warfarin 5 mg Tablet 5 mg PO DAILY RF: 0 Joint Health 40-10-5-3.3 mg Tablet 1 tab PO DAILY RF: 0 Vitamin B-12 50 mcg Tablet PO DAILY RF: 0 PreserVision AREDS-2 [id number]-[id number]-mg Capsule 1 tab PO BID RF: 0 timolol 0.25 % Drops 1 drp OPHTHALMIC (EYE) QAM RF: 0 Lumigan 0.01 % Drops 1 drp OPHTHALMIC (EYE) PM RF: 0 Discharge Orders: Discharge Order (Routine); Ordered 04/01/19 Ordered By: Man Bautista/Other Patient Handouts: Surgery Prevent DVT After, Coumadin Admission Data Admit Date/Time: 03/22/19 06:45 Attending Provider: Man Escalante Admit Provider: Catracho Sandra Primary Care Provider: Jocelin Guadalupe Other Providers: Catracho Sandra ; Jase Kuhn ; Mariana Meier ; Rasta Guzman ; Rosalva Diop ; Bruce Rachel ; Neymar Gonzalez ; Waleska Sellers ; Elie Johnson ; Jazmyne Cortes ; Abner Rowell Jr ; Yue Flores ; Brooklynn Villarreal ; Zeny Shaw
[2019-04-01] MEDS ORDERED: WARFARIN SOD 5 MG TAB PO SCH (16:00)
[2019-04-01] MEDS: ACETAMINOPHEN 325 MG TAB PO PRN (18:12)
== END 2019-04-01 18:45 | disposition home or self-care (01) | DRG 336 ==
LOC: ED 03:37 → 3W 06:45 → SUATTDRO 06:45 → 3W 07:22